=== PATIENT | female | born 1960 | race Caucasian/White ===

== ENCOUNTER → 2018-01-20 15:33 | Outpatient (CLI) | payer OTHER, MEDICARE, MEDICAID, SELFPAY ==
[2018-01-20 16:18] LABS: BUN Creatinine Ratio 21.1 (6-22); Blood Urea Nitrogen 19 mg/dL (7-17); Calcium 9.1 mg/dL (8.4-10.2); Carbon Dioxide 29 mmol/L (22-32); Chloride 101 mmol/L (98-107); Estimated Glomerular Filt Rate > 60.0 mL/min (>60); Glucose 91 mg/dL (70-100); HEMOLYSIS 27 (0-50); Magnesium 2.2 mg/dL (1.6-2.3); Potassium 3.7 mmol/L (3.4-5.1); Sodium 140 mmol/L (137-145)
[2018-01-20 17:00] LABS: TSH w/ Reflex to FT4 0.86 uIU/mL (0.47-4.68)
== END ==
PROVIDERS: Family Provider Internal Medicine; PCP Internal Medicine; Visit Provider Internal Medicine
DX: I10 Essential (primary) hypertension (principal); E03.9 Hypothyroidism, unspecified
CPT/HCPCS: 36415; 80048; 83735; 84443

== ENCOUNTER → 2018-03-31 14:38 | Outpatient (CLI) | payer OTHER, MEDICARE, MEDICAID, SELFPAY ==
--- NOTE | 2018-03-31 14:40 | DI.CT.S_ITS ---
PROCEDURE: CT HEAD/BRAIN WO CON INDICATIONS: Headaches TECHNIQUE: Noncontrast 4.5 mm thick angled axial sections acquired from the foramen magnum to the vertex, with coronal and sagittal reformats. For radiation dose reduction, the following was used: automated exposure control, adjustment of mA and/or kV according to patient size. COMPARISON: None. FINDINGS: Image quality: Excellent. CSF spaces: Basal cisterns are patent. No extra-axial fluid collections. Ventricles are normal in size and shape. Brain: No midline shift. No intracranial masses or hemorrhage. Hallman-white matter interface is normal. Skull and face: Calvarium and visualized facial bones are intact, without suspicious lesions. Sinuses: Visualized sinuses and mastoids are clear. IMPRESSION: 1. No acute intracranial disease process. 2. No intracranial hemorrhage. 3. No abnormal intracranial mass. Dictated by: Elzia Bradshaw MD, PhD on 03/31/2018 at 15:20 Approved by: Eliza Bradshaw MD, PhD on 03/31/2018 at 15:23
== END ==
PROVIDERS: Family Provider Internal Medicine; PCP Internal Medicine; Visit Provider Internal Medicine
DX: R51 Headache (principal)
CPT/HCPCS: 70450

== ENCOUNTER 2018-04-11 10:24 | Day surgery (SDC) | payer OTHER, MEDICARE, MEDICAID, SELFPAY ==
[2018-04-11] VITALS (10 sets, daily range): BP systolic 81–114; BP diastolic 53–69; PULSE 58–81; RESP 11–20; TEMP 36–36.3; O2SAT 92–100; BMI 40.4
--- NOTE | 2018-04-11 | PATH_ITS ---
[facility] Accession Number: [id number] . 01 Material submitted: . PART A: CECAL POLYP PART B: RECTAL POLYPS X2 . 02 Diagnosis: A. Cecal Polyp: Colonic mucosa with prominent benign lymphoid aggregate. Negative for serrated lesion, dysplasia or malignancy. . B. Rectal Polyps: Hyperplastic polyp x2. V/04/12/2018 . 02 Electronically signed: . Tano Martinez MD, PhD, Pathologist NPI- [id number] . 01 Gross description: . Received two formalin-filled containers, both labeled with the patient's name: . A. In a container labeled cecal polyp, the specimen consists of four 0.1-0.3 cm portions of tissue, entirely submitted in cassette A. B. In a container labeled rectal polyp x2, are two less than 0.1 cm to 0.3 cm portions of tissue, entirely submitted in cassette B. ([id number]) /FRR . 02 Pathologist provided ICD-10: K63.5, K62.1 . 02 CPT . 436456, 164816 Performed at: 01 [facility] [address] [facility], [place], [place] [id number] MD Phillip Mckeon MD Phone: [phone] Performed at: 02 [facility] [address] [place], [place] [id number] MD Jasbir Urrutia MD Phone: [phone]
--- NOTE | 2018-04-11 08:20 | SUR.PREOP ---
Pt notified Dr. Vásquez is in emergency surgery and her procedure will be delayed. Pt expressed frustration regarding her change of procedure time, difficulty with her ride and not drinking anything. Pt reassured she would have the procedure as soon as the surgeon could get to her.
--- NOTE | 2018-04-11 12:02 | P.HP_ITS ---
History of Present Illness Date Patient Seen: 04/11/18 Time Patient Seen: 11:59 Chief complaint: COLONOSCOPY [id number] Narrative: 57-year-old female who presents for colorectal screening. It has been 5 years since her last colonoscopy, and she has a strong family history of colorectal neoplasia including her father who of colon cancer at age 55. On further history today she has no gastrointestinal symptoms other than some transient constipation in the last several weeks. Denies nausea, vomiting, loss of appetite, unexplained weight loss, abdominal pain, diarrhea, melena, hematochezia, or bright red blood per rectum. Patient History Medical History Post traumatic stress disorder (PTSD) (Chronic) Major depressive disorder, recurrent severe without psychotic features (Acute) Attention-deficit hyperactivity disorder, predominantly inattentive type ( Chronic) Mixed hyperlipidemia (Chronic 06/16/11) Generalized anxiety disorder (Chronic 06/16/11) Obstructive sleep apnea syndrome (Chronic 06/16/11) Glaucoma (Chronic 2009) Dorsalgia (Chronic 06/16/11) Acquired hypothyroidism (Chronic) Gastroesophageal reflux disease without esophagitis (Chronic 04/03/16) Essential hypertension (Chronic 08/07/16) Morbid obesity with body mass index (BMI) of 40.0 to 49.9 (Chronic 08/07/16) Hayfever (Chronic) Hearing loss (Chronic 1961) Chronic back pain (Chronic 2004) Foot pain (Chronic 2012) Lumbar spine pain (Chronic 2004) Fatty tumor (Inactive) Anemia (Resolved 1986) Arthritis (Resolved 2004) Chicken pox (Resolved 1960) History of recurrent ear infection (Resolved 1960) Measles (Resolved 1961) Painful menstrual periods (Resolved 1969) Plantar warts (Resolved 2002) Pneumothorax (Resolved) Shoulder pain (Resolved 2008) Suicide attempt (Resolved 2004) Surgical History History of back surgery (Resolved 2007) History of carpal tunnel repair (Resolved 2010) History of ear surgery (Resolved) History of thumb surgery (Resolved 2009) Status post delivery (Resolved 01/27/90) Status post tonsillectomy and adenoidectomy (Resolved) Family & Social History Family History: Reviewed 04/11/18 by Sean Vásquez MD Social History: household members none lives independently Yes caregiver/support person No Tobacco & Substance use: Smoking Status Never smoker alcohol intake current Meds Home Medications Medication Instructions Recorded Confirmed Type eszopiclone [Lunesta] 1.5 - 3 mg PO HS #60 tab 05/13/17 03/18/18 Rx estradiol [Yuvafem] 10 mcg VAGINAL QR SLEEP #90 tab 07/06/17 03/18/18 Rx bupropion HCl [Wellbutrin XL] 300 mg PO Q DAY #90 tab 07/09/17 03/18/18 Rx lisinopril 40 mg PO QDAY #90 tab 09/16/17 03/18/18 Rx esomeprazole magnesium 40 mg 40 mg PO QDAY #90 cap 01/20/18 03/18/18 Rx capsule,delayed release hydrochlorothiazide 25 mg tablet 25 mg PO QDAY #90 tab 01/20/18 03/18/18 Rx methylphenidate CD 10 mg biphasic 10 mg PO QAM #90 cap 02/15/18 03/18/18 Rx 30-70 capsule,extended release ramelteon 8 mg tablet 8 mg PO HS #30 tab 03/17/18 03/18/18 Rx verapamil ER 120 mg 24 hr 120 mg PO DAILY #30 cap 03/17/18 03/18/18 Rx capsule,extended release prazosin 1 mg capsule 2 mg PO HS #180 cap 03/18/18 Rx vitamin B complex tablet 1 tab PO DAILY 03/18/18 03/18/18 History Allergies Allergy/AdvReac Type Severity Reaction Status Date / Time doxycycline Allergy Mild N/V Verified 03/18/18 15:58 penicillin G Allergy Mild RASH Verified 03/18/18 15:58 Sulfa (Sulfonamide Allergy Mild ACT LIKE Verified 03/18/18 15:58 Antibiotics) I'M DRUNK/SICK gabapentin [GABAPENTIN] Allergy Unknown FAINTING, Verified 03/18/18 15:58 DIZZINESS. Review of Systems Review of Systems All systems reviewed & are unremarkable except as noted in HPI and below Exam Vital Signs (past 8 hours): - 04/11/18 10:50 Temperature 97.2 F L Pulse Rate 81 Respiratory Rate 12 Blood Pressure 94/64 Pulse Oximetry 97 Oxygen Delivery Method Room Air Narrative Exam Narrative: Well-nourished well-developed obese female sitting comfortably in the bed in no acute distress. Alert oriented x3. Family is at the bedside for my entire visit. Sclera nonicteric Chest clear to auscultation bilaterally with regular rate rhythm. No murmurs. Abdomen soft, nondistended, nontender, no masses. Extremities show no clubbing or cyanosis Objective Labs Labs: No recent laboratory or radiographic studies for review Assessment & Plan Plan: Assessment/Plan Narrative: 57-year-old female with significant family history of colorectal neoplasia. He requires colorectal screening since it has been 5 years from her last examination. Colonoscopy is recommended. Risks, benefits, alternatives were explained as were the technical details of the procedure itself. Risks including but not limited to sedation, aspiration, bleeding, pain, missed lesion , incomplete examination, need for further radiographic studies, colonic perforation, need for major abdominal surgery, and all attendant risks of major surgery were explained at length. All questions were answered to her satisfaction, and she voiced understanding. Consent was placed on the chart. We will proceed as above.
--- NOTE | 2018-04-11 12:02 | PM.PREOP ---
Pre-operative Note Interval Note Pre-op Check: Yes History & Physical Reviewed by Physician, Yes Exam Performed and Yes History & Physical exam performed today by Physician Changes: No H&P completed within 30 days and has changed as indicated here:: Patient seen and examined today. History physical examination documented and placed on the chart today. Proceed with colonoscopy as planned. ASA Class (for procedural sedation): II
[2018-04-11] MEDS: MIDAZOLAM 5 MG/5 ML VIAL IV (12:17)
[2018-04-11] MEDS: fentaNYL 250 MCG/5 ML INJ IV (12:18)
--- NOTE | 2018-04-11 12:29 | PM.OP.ENDO ---
Operative Date/Time/Diagnoses Date of procedure: 04/11/18 Time of procedure: 12:29 Pre-op diagnosis: Family history of colon cancer Post-op diagnosis: other (Colon polyps) Procedure & Clinicians Study performed: 1. Sedation per surgeon 2. Colonoscopy with cold forceps polypectomies Same procedure as scheduled: Yes Indications: 57-year-old female with family history of colon cancer in her father who at the age of 55 due to his disease. Patient presents for colorectal screening. It has been 5 years since her last colonoscopy. Repeat colonoscopy is recommended currently. Surgeon: Sean Vásquez Procedure Notes SCOAP/Timeout: Yes Procedure in detail: After obtaining informed consent, the patient was brought to the GI suite and placed in the left lateral decubitus position on the examination table. After placement of appropriate monitors, the patient was given incremental doses of Versed and Fentanyl until an appropriate level of sedation was achieved. A time out was held per SCOAP protocol. A digital rectal examination was performed and did not reveal any masses or obstructing lesions. The colonoscope was gently passed into the patient's anus and the entire colon navigated to the level of the cecum with minimal difficulty. Terminal ileum was intubated and noted to be grossly normal. Once in the cecum, the scope was withdrawn being sure to go before and beyond all mucosal folds and prominences and get an excellent examination. The findings are noted above. At the level of the rectal vault, the scope was retroflexed and the internal anal canal was examined. The scope was straightened and air aspirated from the colon. The instrument was removed from the patient's body and the procedure was concluded. The patient was allowed to awaken from sedation without difficulty and taken to the post-anesthesia care unit in good condition. Scope withdrawal time: 9:54 min Sedation minutes: 20 Findings: polyp and other findings (Otherwise normal colon, rectum, and terminal ileum) Specimen(s): other (1. Cecal polyp 2. Rectal polyps x2) Complications: none Recommendations: Colonscopy in 5 years, High fiber diet and Will call with biopsy results Plan for aftercare: 1. Discharged home Follow up: as needed Disposition: same day surgery
[2018-04-11] MEDS: ONDANSETRON 4 MG/2 ML INJ IV (12:41)
[2018-04-11] MEDS: ONDANSETRON 4 MG ODT PO (13:50)
--- NOTE | 2018-04-11 13:58 | SUR.PHASEII ---
pt c/o nausea directly after iv removed. verbal order received from Dr. Vásquez for 4mg ondansetron. pt also given mayank karolina and cool wash cloth placed on forehead. bed in lowest position and call light given to pt. pt friend at bedside. pt requesting to rest at this time.
== END 2018-04-11 14:28 | disposition home or self-care (01) ==
PROVIDERS: Surgery; Family Provider Internal Medicine; PCP Internal Medicine; Visit Provider Surgery
PROC: 0DJD8ZZ Inspection of Lower Intestinal Tract, Via Natural or Artificial Opening Endoscopic (ICD-10-PCS; CPT 45378; principal; 2018-04-11 10:45)
DX: Z12.11 Encounter for screening for malignant neoplasm of colon (principal); Z80.0 Family history of malignant neoplasm of digestive organs; K63.5 Polyp of colon; K62.1 Rectal polyp
CPT/HCPCS: 45380; 88305; 99152; J2250; J2405; J3010

== ENCOUNTER → 2018-11-28 09:48 | Outpatient (CLI) | payer MEDICARE, MEDICAID, SELFPAY ==
[2018-11-28 11:24] LABS: Alanine Aminotransferase 21 IU/L (9-52); Albumin 4.1 g/dL (3.5-5.0); Albumin Globulin Ratio 1.3 (1.0-2.8); Alkaline Phosphatase 70 U/L (38-126); Aspartate Aminotransferase 18 IU/L (14-36); BUN Creatinine Ratio 14.4 (6-22); Bilirubin Total 0.5 mg/dL (0.2-1.3); Blood Urea Nitrogen 13 mg/dL (7-17); Calcium 9.4 mg/dL (8.4-10.2); Carbon Dioxide 29 mmol/L (22-32); Chloride 99 mmol/L (98-107); Cholesterol 158 mg/dL (140-199); Estimated Glomerular Filt Rate > 60.0 mL/min (>60); Globulin 3.2 g/dL (1.7-4.1); Glucose 103 mg/dL (70-100); HDL Cholesterol 44 mg/dL (40-60); HEMOLYSIS < 15 (0-50); LDL Cholesterol Calculated 95 mg/dL (<100); Potassium 3.8 mmol/L (3.4-5.1); Sodium 138 mmol/L (137-145); Total Protein 7.3 g/dL (6.3-8.2); Triglycerides 94 mg/dL (35-150)
[2018-11-28 11:41] LABS: Free T4, Direct Thyroxine 1.01 ng/dL (0.78-2.19)
[2018-11-28 11:55] LABS: Thyroid Stimulating Hormone 1.18 uIU/mL (0.47-4.68)
== END ==
PROVIDERS: Family Provider Internal Medicine; PCP Internal Medicine; Visit Provider Internal Medicine
DX: E03.9 Hypothyroidism, unspecified (principal); E78.2 Mixed hyperlipidemia; K21.9 Gastro-esophageal reflux disease without esophagitis
CPT/HCPCS: 36415; 80053; 80061; 84439; 84443

== ENCOUNTER → 2018-12-01 16:23 | Outpatient (CLI) | payer MEDICARE, MEDICAID, SELFPAY ==
[2018-12-01 17:35] LABS: Appearance Urine UA CLEAR; Bilirubin Urine UA NEGATIVE (NEGATIVE); Color Urine UA YELLOW; Glucose Urine UA NEGATIVE (Negative); Ketones Urine UA NEGATIVE (NEGATIVE); Leukocyte Esterase Urine UA TRACE (NEGATIVE); Nitrite Urine UA NEGATIVE (Negative); Occult Blood Urine UA TRACE-INTACT (Negative); Protein Urine UA NEGATIVE (Negative); Urobilinogen Urine UA 0.2 E.U./dL (0.2); pH Urine UA 5.5 (4.5-8.0)
[2018-12-01 17:53] LABS: RBC Urine 1-5/HPF (0-5/HPF); WBC Urine 1-5/HPF (0-5/HPF)
[2018-12-01 17:54] LABS: Amorphous Sediment Urine 1+; Bacteria Urine Few (2-10); Culture Indicated Urine Specimen Cultured; Squamous Epithelial Cell Urine 0-1 /HPF (0-5/HPF)
== END ==
PROVIDERS: Family Provider Internal Medicine; PCP Internal Medicine; Visit Provider Internal Medicine
DX: R30.0 Dysuria (principal)
CPT/HCPCS: 81003; 81015; 87086

== ENCOUNTER → 2019-07-29 10:03 | Outpatient (CLI) | payer MEDICARE, MEDICAID, SELFPAY ==
[2019-07-29 10:49] LABS: Alanine Aminotransferase 15 IU/L (<35); Albumin 4.5 g/dL (3.5-5.0); Albumin Globulin Ratio 1.5 (1.0-2.8); Alkaline Phosphatase 101 U/L (38-126); Aspartate Aminotransferase 20 IU/L (14-36); Bilirubin Total 0.5 mg/dL (0.2-1.3); Blood Urea Nitrogen 17 mg/dL (7-17); Calcium 9.6 mg/dL (8.4-10.2); Carbon Dioxide 31 mmol/L (22-32); Chloride 99 mmol/L (98-107); Cholesterol 177 mg/dL (140-199); Estimated Glomerular Filt Rate 56.7 mL/min (>60); Globulin 3.1 g/dL (1.7-4.1); Glucose 122 mg/dL (70-100); HDL Cholesterol 44 mg/dL (40-60); HEMOLYSIS < 15 (0-50); LDL Cholesterol Calculated 110 mg/dL (<100); Potassium 4.1 mmol/L (3.4-5.1); Sodium 140 mmol/L (137-145); Total Protein 7.6 g/dL (6.3-8.2); Triglycerides 113 mg/dL (35-150)
[2019-07-29 11:04] LABS: Free T4, Direct Thyroxine 1.17 ng/dL (0.78-2.19)
[2019-07-29 11:18] LABS: Thyroid Stimulating Hormone 1.09 uIU/mL (0.47-4.68)
== END ==
PROVIDERS: Family Provider Internal Medicine; PCP Internal Medicine; Visit Provider Internal Medicine
DX: Z13.1 Encounter for screening for diabetes mellitus (principal); E03.9 Hypothyroidism, unspecified; E78.2 Mixed hyperlipidemia; I10 Essential (primary) hypertension; Z13.6 Encounter for screening for cardiovascular disorders
CPT/HCPCS: 36415; 80053; 80061; 84439; 84443

== ENCOUNTER → 2020-04-20 08:11 | Outpatient (CLI) | payer MEDICARE, MEDICAID, SELFPAY ==
[2020-04-20 09:20] LABS: Alanine Aminotransferase 12 IU/L (<35); Albumin 4.1 g/dL (3.5-5.0); Albumin Globulin Ratio 1.3 (1.0-2.8); Alkaline Phosphatase 84 U/L (38-126); Aspartate Aminotransferase 19 IU/L (14-36); BUN Creatinine Ratio 18.2 (6-22); Bilirubin Total 0.4 mg/dL (0.2-1.3); Blood Urea Nitrogen 16 mg/dL (7-17); Calcium 8.9 mg/dL (8.4-10.2); Carbon Dioxide 35 mmol/L (22-32); Chloride 98 mmol/L (98-107); Estimated Glomerular Filt Rate > 60.0 mL/min (>60); Globulin 3.2 g/dL (1.7-4.1); Glucose 112 mg/dL (80-110); HEMOLYSIS < 15 (0-50); Potassium 3.1 mmol/L (3.4-5.1); Sodium 138 mmol/L (137-145); Total Protein 7.3 g/dL (6.3-8.2)
[2020-04-20 13:26] LABS: TSH w/ Reflex to FT4 0.84 uIU/mL (0.47-4.68)
== END ==
PROVIDERS: Family Provider Internal Medicine; PCP Internal Medicine; Referring Provider Internal Medicine; Visit Provider Internal Medicine
DX: E66.01 Morbid (severe) obesity due to excess calories (principal); F41.1 Generalized anxiety disorder; I10 Essential (primary) hypertension
CPT/HCPCS: 36415; 80053; 84443

== ENCOUNTER → 2020-04-25 11:50 | Outpatient (CLI) | payer MEDICARE, MEDICAID, SELFPAY ==
--- NOTE | 2020-04-25 11:55 | DI.US.S_ITS ---
PROCEDURE: US CAROTID DOPPLER BI INDICATIONS: syncope TECHNIQUE: Color and pulse Doppler interrogation was performed of both carotid systems, with image documentation and velocity measurements. COMPARISON: None. FINDINGS: Stenosis calculations are based on SRU (Society of Radiologists in Ultrasound) criteria. Right side: Brachial blood pressure: 146/80 mm Hg. Common carotid artery peak systolic velocity: 74 cm/sec. Internal carotid artery peak systolic velocity: 98 cm/sec. Internal carotid artery end diastolic velocity: 40 cm/sec. External carotid artery peak systolic velocity: 75 cm/sec. ICA/CCA peak systolic ratio: 1.3 . Hallman scale imaging description: Mild scattered plaque Percent internal carotid artery stenosis: Less than 50% . Vertebral artery: Flow direction is antegrade. Left side: Brachial blood pressure: 132/90 mm Hg. Common carotid artery peak systolic velocity: 90 cm/sec. Internal carotid artery peak systolic velocity: 85 cm/sec. Internal carotid artery end diastolic velocity: 35 cm/sec. External carotid artery peak systolic velocity: 66 cm/sec. ICA/CCA peak systolic ratio: 0.9 . Hallman scale imaging description: Mild scattered plaque. Percent internal carotid artery stenosis: Less than 50% . Vertebral artery: Flow direction is antegrade. IMPRESSION: Less than 50% bilateral internal carotid artery stenosis. Dictated by: Shamar Mcrae [facility] Interpreted: Zi Cross MD on 04/25/2020 at 15:37 Approved by: Zi Cross M.D. on 04/26/2020 at 9:41
== END ==
PROVIDERS: Family Provider Internal Medicine; PCP Internal Medicine; Referring Provider Internal Medicine; Visit Provider Internal Medicine
DX: I65.23 Occlusion and stenosis of bilateral carotid arteries (principal); R55 Syncope and collapse
CPT/HCPCS: 93880

== ENCOUNTER → 2020-05-01 15:32 | Outpatient (CLI) | payer MEDICARE, MEDICAID, SELFPAY ==
--- NOTE | 2020-05-29 08:02 | PM.CARDMON.1 ---
Director Of Social Media Marketing Report Referral & Results Date Patient Seen: 05/01/20 Requesting provider: Andrés Luque Indication: Syncope Duration of monitoring (days): 14 Diary information: There were 12 patient triggered events and 9 patient diary entries. All of these events were associated with sinus rhythm only Data: Minimum heart rate was 53 beats per minute at 03:22 on 05/07/2020 Maximum sinus heart rate was 156 beats per minute at 12:30 on 05/02/2020 Maximum overall heart rate was 184 beats per minute at 12:30 on 05/14/2020 during a 5 beat run of SVT Less than 1% of identified beats or either ventricular supraventricular ectopic in origin Patient had 1 5 beat run of SVT as above. 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 Clinical correlation suggested
== END ==
PROVIDERS: Family Provider Internal Medicine; PCP Internal Medicine; Referring Provider Internal Medicine; Visit Provider Internal Medicine
DX: R55 Syncope and collapse (principal)
CPT/HCPCS: 0296T; 0298T

== ENCOUNTER → 2020-08-13 16:27 | Outpatient (CLI) | payer MEDICARE, MEDICAID, SELFPAY ==
--- NOTE | 2020-08-13 16:29 | DI.MG.S_ITS ---
BILATERAL DIGITAL SCREENING MAMMOGRAM 3D/2D WITH CAD: 08/13/2020 CLINICAL: Routine screening. Family history of breast cancer. Comparison is made to exams dated: 09/16/2017 mammogram, 08/01/2015 mammogram, and 07/06/2012 mammogram - [facility]. The tissue of both breasts is predominantly fatty. Current study was also evaluated with a Computer Aided Detection (CAD) system. No significant masses, calcifications, or other findings are seen in either breast. There has been no significant interval change. IMPRESSION: NEGATIVE There is no mammographic evidence of malignancy. A 1 year screening mammogram is recommended. This exam was interpreted at Station ID: [id number]. NOTE: For mammograms, a report in lay terms will be sent to the patient. Approximately 15% of breast malignancies will not be visualized mammographically. In the management of a palpable breast mass, a negative mammogram must not discourage biopsy of a clinically suspicious lesion. Electronically Signed By: Jacek Perez acr/adamsrad:08/13/2020 17:05:34 letter sent: Normal Exam ACR BI-RADS Category 1: Negative 3341F
== END ==
PROVIDERS: Family Provider Internal Medicine; PCP Internal Medicine; Referring Provider Internal Medicine; Visit Provider Internal Medicine
DX: Z12.31 Encounter for screening mammogram for malignant neoplasm of breast (principal); Z80.3 Family history of malignant neoplasm of breast
CPT/HCPCS: 77063; 77067

== ENCOUNTER → 2020-11-01 11:21 | Outpatient (CLI) | payer MEDICARE, MEDICAID, SELFPAY ==
--- NOTE | 2020-11-01 11:36 | DI.RAD.S_ITS ---
PROCEDURE: XR CHEST 2V INDICATIONS: cough TECHNIQUE: 2 views of the chest were acquired. COMPARISON: [facility], CHEST 2 VIEW, 03/25/2011, 14:37. [facility], CHEST 2 VIEW, 04/03/2009, 14:44. FINDINGS: Surgical changes and devices: None. Lungs and pleura: Lungs are abnormal with a medial segment right middle lobe pneumonia and possible a small degree of lateral segmental right middle lobe pneumonia is superimposed. No pleural effusions or pneumothorax. Mediastinum: Mediastinal contours are normal. Heart size is normal. Bones and chest wall: No suspicious bony abnormalities. Soft tissues appear unremarkable. IMPRESSION: Mild pneumonia right middle lobe, involving the medial segment on frontal view and possibly also to a mild degree the lateral segment. Dictated by: Zi Cross M.D. on 11/01/2020 at 15:32 Approved by: Zi Cross M.D. on 11/01/2020 at 15:33
[2020-11-01 12:02] LABS: COVID19 -Nasal RAPID Negative (Negative)
== END ==
PROVIDERS: Family Provider Internal Medicine; PCP Internal Medicine; Referring Provider Internal Medicine; Visit Provider Internal Medicine
DX: Z20.822 Contact with and (suspected) exposure to COVID-19 (principal); R05 Cough
CPT/HCPCS: 71046; 87635

== ENCOUNTER → 2022-03-16 14:18 | Outpatient (CLI) | payer MEDICARE, MEDICAID, SELFPAY ==
[2022-03-16 15:11] LABS: BUN Creatinine Ratio 16.1 (6-22); Blood Urea Nitrogen 14 mg/dL (7-17); Calcium 9.1 mg/dL (8.4-10.2); Carbon Dioxide 30 mmol/L (22-32); Chloride 101 mmol/L (98-107); Cholesterol 164 mg/dL (140-199); Estimated Glomerular Filt Rate > 60 mL/min (>60); Glucose 103 mg/dL (80-110); HDL Cholesterol 44 mg/dL (40-60); HEMOLYSIS < 15 (0-50); LDL Cholesterol Calculated 98 mg/dL (<100); Potassium 4.2 mmol/L (3.4-5.1); Sodium 137 mmol/L (137-145); Triglycerides 108 mg/dL (35-150)
== END ==
PROVIDERS: Family Provider Internal Medicine; PCP Internal Medicine; Referring Provider Internal Medicine; Visit Provider Internal Medicine
DX: R73.9 Hyperglycemia, unspecified (principal); I10 Essential (primary) hypertension; Z13.6 Encounter for screening for cardiovascular disorders
CPT/HCPCS: 80048; 80061; 83036

== ENCOUNTER → 2022-04-23 15:14 | Outpatient (CLI) | payer MEDICARE, MEDICAID, SELFPAY ==
--- NOTE | 2022-04-23 15:16 | DI.MG.S_ITS ---
BILATERAL DIGITAL SCREENING MAMMOGRAM 3D/2D WITH CAD: 04/23/2022 CLINICAL: Routine screening. Family history of breast cancer. Comparison is made to exams dated: 08/13/2020 mammogram, 09/16/2017 mammogram, and 08/01/2015 mammogram - [facility]. Both breasts are almost entirely fatty (category a/<25% glandular tissue). Current study was also evaluated with a Computer Aided Detection (CAD) system. No significant masses, calcifications, or other findings are seen in either breast. There has been no significant interval change. IMPRESSION: NEGATIVE There is no mammographic evidence of malignancy. A 1 year screening mammogram is recommended. Based on the Tyrer Cuzick model (a risk assessment model) the patient's lifetime risk is 5.6% and her 10 year risk is 2.4%. According to the ACR, ACS, and NCCN guidelines, an annual breast MRI exam along with mammogram is recommended if the patient's lifetime risk is 20% or greater. This exam was interpreted at Station ID: [id number]. NOTE: For mammograms, a report in lay terms will be sent to the patient. Approximately 15% of breast malignancies will not be visualized mammographically. In the management of a palpable breast mass, a negative mammogram must not discourage biopsy of a clinically suspicious lesion. Electronically Signed By: Rafael mendez/josiah:04/24/2022 08:12:35 letter sent: Normal Exam ACR BI-RADS Category 1: Negative 3341F
== END ==
PROVIDERS: Family Provider Internal Medicine; PCP Internal Medicine; Referring Provider Internal Medicine; Visit Provider Internal Medicine
DX: Z12.31 Encounter for screening mammogram for malignant neoplasm of breast (principal); Z80.3 Family history of malignant neoplasm of breast
CPT/HCPCS: 77063; 77067

== ENCOUNTER → 2022-06-30 14:57 | Outpatient (CLI) | payer MEDICARE, MEDICAID, SELFPAY ==
--- NOTE | 2022-06-30 | DI.MRI.S_ITS ---
PROCEDURE: MR SHOULDER RT WO CON INDICATIONS: impingement syndrome of right shoulder TECHNIQUE: Noncontrast oblique coronal T2 fast spin echo with fat saturation, oblique sagittal T1 spin echo and T2 fast spin echo with fat saturation, axial T1 spin echo and T2 fast spin echo with fat saturation through the shoulder. COMPARISON: [facility] [place], CR, XR SHOULDER 2+ VIEWS RIGHT, 03/16/2022, 15:21. FINDINGS: Image quality: Excellent. Rotator cuff: Moderate grade articular and bursal surface partial thickness tear involving distal supraspinatus at its insertion on the humeral head is seen extending to musculotendinous junction. Distal infraspinatus tendinosis is seen. Distal subscapularis tendinosis is also noted. No full-thickness rotator cuff tendon rupture. Sagittal images demonstrate mild supraspinatus muscle atrophy. Bones and bursae: No bone marrow contusions or fractures. Mild to moderate acromioclavicular joint osteoarthritic changes are seen with joint space narrowing, subchondral sclerosis and downward osteophyte formation depressing the musculotendinous junction of supraspinatus. Moderate glenohumeral joint osteoarthritic changes also seen with joint space narrowing, subchondral sclerosis and prominent inferior marginal osteophyte formation. Small amount of joint effusion and subacromial subdeltoid bursal fluid is seen. Capsule and soft tissues: Signal abnormality and contour irregularity involving superior anterior labrum at 12 to 2 o'clock position is seen suggestive of superior anterior labral tear. There is suggestion of a tiny 5 millimeter perilabral cyst adjacent to superior anterior labrum. The long head of the biceps tendon appears thickened intra-articularly. The rotator interval appears normal, without fibrosis. The coracohumeral ligament is normal in thickness. IMPRESSION: 1. Moderate grade articular and bursal surface partial thickness tear involving distal supraspinatus extending to musculotendinous junction. Distal infraspinatus and subscapularis tendinosis. Mild supraspinatus muscle atrophy. 2. Mild to moderate acromioclavicular joint osteoarthritis and moderate glenohumeral joint osteoarthritis. No fracture or dislocation. Small joint effusion and subacromial subdeltoid bursal fluid. 3. Suggestion of superior anterior labral tear at 12 to 2 o'clock position. 4. Proximal intra-articular portion of long head of biceps tendinosis. Dictated by: Mook Rice M.D. on 06/30/2022 at 17:13 Approved by: Mook Rice M.D. on 06/30/2022 at 17:18
== END ==
PROVIDERS: Family Provider Internal Medicine; PCP Internal Medicine; Referring Provider Orthopaedic Surgery; Visit Provider Orthopaedic Surgery
DX: M75.41 Impingement syndrome of right shoulder (principal); M75.111 Incomplete rotator cuff tear or rupture of right shoulder, not specified as traumatic; M19.011 Primary osteoarthritis, right shoulder; M62.511 Muscle wasting and atrophy, not elsewhere classified, right shoulder; M25.411 Effusion, right shoulder
CPT/HCPCS: 73221

== ENCOUNTER → 2022-11-13 12:12 | Outpatient (CLI) | payer MEDICARE, SELFPAY ==
[2022-11-13 15:05] LABS: Alanine Aminotransferase 16 IU/L (<35); Albumin 3.9 g/dL (3.5-5.0); Albumin Globulin Ratio 1.3 (1.0-2.8); Alkaline Phosphatase 72 U/L (38-126); Aspartate Aminotransferase 20 IU/L (14-36); BUN Creatinine Ratio 19.8 (6-22); Bilirubin Total 0.3 mg/dL (0.2-1.3); Blood Urea Nitrogen 16 mg/dL (7-17); Calcium 9.1 mg/dL (8.4-10.2); Carbon Dioxide 31 mmol/L (22-32); Chloride 100 mmol/L (98-107); Estimated Glomerular Filt Rate > 60 mL/min (>60); Glucose 97 mg/dL (80-110); HEMOLYSIS < 15 (0-50); Potassium 3.9 mmol/L (3.4-5.1); Sodium 137 mmol/L (137-145); Total Protein 6.9 g/dL (6.3-8.2)
[2022-11-13 15:23] LABS: TSH w/ Reflex to FT4 0.96 uIU/mL (0.47-4.68)
== END ==
PROVIDERS: Family Provider Internal Medicine; PCP Internal Medicine; Referring Provider Internal Medicine; Visit Provider Internal Medicine
DX: I10 Essential (primary) hypertension (principal); E66.01 Morbid (severe) obesity due to excess calories; E03.9 Hypothyroidism, unspecified
CPT/HCPCS: 36415; 80053; 84443

== ENCOUNTER → 2023-03-16 16:36 | Outpatient (CLI) | payer MEDICARE, MEDICAID, SELFPAY ==
[2023-03-16 18:19] LABS: Alanine Aminotransferase 15 IU/L (<35); Albumin 3.9 g/dL (3.5-5.0); Albumin Globulin Ratio 1.4 (1.0-2.8); Alkaline Phosphatase 65 U/L (38-126); Aspartate Aminotransferase 22 IU/L (14-36); Bilirubin Total 0.2 mg/dL (0.2-1.3); Blood Urea Nitrogen 21 mg/dL (7-17); C-Reactive Protein Quant < 0.5 mg/dL (<1.0); Carbon Dioxide 27 mmol/L (22-32); Chloride 101 mmol/L (98-107); Creatine Kinase 454 U/L (30-135); Estimated Glomerular Filt Rate > 60 mL/min (>60); Globulin 2.7 g/dL (1.7-4.1); Glucose 94 mg/dL (80-110); HEMOLYSIS < 15 (0-50); Magnesium 1.9 mg/dL (1.6-2.3); Potassium 3.8 mmol/L (3.4-5.1); Sodium 136 mmol/L (137-145); Total Protein 6.6 g/dL (6.3-8.2)
[2023-03-16 18:46] LABS: TSH w/ Reflex to FT4 1.01 uIU/mL (0.47-4.68)
[2023-03-16 19:34] LABS: Erythrocyte Sedimentation Rate 12 MM/HR (0-20)
== END ==
PROVIDERS: Family Provider Internal Medicine; PCP Internal Medicine; Referring Provider Internal Medicine; Visit Provider Internal Medicine
DX: I10 Essential (primary) hypertension (principal); M79.10 Myalgia, unspecified site; R25.2 Cramp and spasm
CPT/HCPCS: 80053; 82550; 83735; 84443; 85651; 86140

== ENCOUNTER → 2023-04-19 09:50 | Outpatient (CLI) | payer MEDICARE, MEDICAID, SELFPAY ==
--- NOTE | 2023-04-19 09:54 | DI.RAD.S_ITS ---
PROCEDURE: FL BARIUM SWALLOW W SPEECH INDICATIONS: Dysphagia, unspecified COMPARISON: None. TECHNIQUE: Examination was conducted in conjunction with speech pathology per standard protocol. In the lateral projection, filming was performed of the patient swallowing. AP projection filming may also be performed with patient swallowing. COMPARISON: FINDINGS: Function: The oral preparatory phase appears normal, with proper containment. The subsequent oral propulsive phase, pharyngeal phase, and esophageal phase of swallowing also appear normal with all proffered substances. No laryngotracheal penetration or aspiration. No pathologic vallecular pooling. Morphology: No cricopharyngeal bar is identified. No cervical esophageal webs. No Zenker's diverticulum. No strictures. IMPRESSION: No evidence of aspiration or penetration. Please see speech pathology report for complete findings. Dictated by: Jacek Perez M.D. on 04/19/2023 at 11:49 Approved by: Jacek Perez M.D. on 04/19/2023 at 11:49
--- NOTE | 2023-04-19 12:45 | ST.SWALLOW ---
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 Luque Reason for Referral dysphagia Setting Setting Outpatient Care Patient Information Identification Type Name,Date of Patient History Pt was seen for a Modified Barium Swallow Study (MBSS) at the referral of Dr. Luque. According to the pt and records reviewed, the pt c/o difficulty swallowing solids and liquids. Pt reported solids/liquids feeling stuck in her throat (points to sternal notch) and pressure/ pain when swallowing (points to sternal area). Pt also reported that pills and foods like rice, breads and steaks are the hardest to swallow. Pt noted that she has a PMH of GERD for which she takes Omneprozol at night. She also stated she thought she had a hiatal hernia, but was unsure of its diagnosis date. Pt stated that she had a friend who from esophageal cancer who also had GERD and was concerned. She expressed her concern and current s/sx to Dr. Luque, who ordered MBSS. Subjective Observations Pt was seated in the fluoroscopy chair with directions and procedures described for her. She indicated that she understood and agreed to proceed. Patient Positioning Position View Lat-A/P Imaging Lateral View Textures Administered Trials Presented Thin Liquid via Spoon (IDDSI 0 ),Thin Liquid via Cup (IDDSI 0 ),Extremely Thick Liquid via Spoon (IDDSI 4),Regular (IDDSI 7) Barium Tablet Yes The IDDSI Framework Protocol: IDDSI.1 Oral Impairment Source: The Modified Barium Swallow Impairment Profile (MBSImP??) Lip Closure No labial escape Tongue Control During Bolus Hold Cohesive bolus between tongue to palatal seal Bolus Preparation/Mastication Timely & efficient chewing & mashing Bolus Transport/Lingual Motion Brisk tongue motion Oral Residue Trace residue lining oral structures Location Tongue Initiation of Pharyngeal Swallow Bolus head at posterior angle of ramus (first hyoid excursion) Additional Oral Impairment Observations OME and DKS were observed to be WNL. Natural dentition was noted in good hygiene. ORAL PHASE: Good bolus hold, control and AP transition observed. Mastication was normal with a rotary chew pattern and good bolus formation. Pharyngeal Impairment Source: The Modified Barium Swallow Impairment Profile (MBSImP??) Soft Palate Elevation No bolus between soft palate & pharyngeal wall Laryngeal Elevation Part.sup.move.thyroid cart/ part.approx.arytenoids to epiglot.petiole Anterior Hyoid Excursion Partial anterior movement Epiglottic Movement Partial inversion Laryngeal Vestibular Closure Complete; no air/contrast in laryngeal vestibule Pharyngeal Stripping Wave Present - complete Pharyngoesophageal Segment Opening Partial distention/partial duration; partial obstruction of flow Tongue Base Retraction Narrow column of contrast/air betwn tongue base & post. pharyngeal wall Pharyngeal Residue Trace residue within/on pharyngeal structures Location Diffuse (>3 areas) Additional Pharyngeal Impairment Mild base of tongue weakness Observations was noted to negatively impact the hyolaryngeal elevation and epiglottic inversion. The pt's epiglottis was observed to be curled and sitting against the base of tongue at rest. For small sips/bolus size across all trials, the epiglottis did not invert. However for large boluses, individually and consecutively , the epiglottic inversion was noted to be partially to fully inverted. The laryngeal seal was good with no penetration nor aspiration of contrast noted. Residue was observed throughout the pharynx following trials. The PES duration and extension of opening appeared to be diminished from expected. At the level of the PES, a bulge of tissue on the posterior wall of the esophagus was observed to narrow the PES opening. Beginning with the consecutive swallows of thin barium through the semi-solid and solid trials, the pt c/o the sensation of the trials being stuck in her throat, despite a clear pharynx on the video. A/P View Textures Administered Trials Presented Thin Liquid via Spoon (IDDSI 0 ) The IDDSI Framework Protocol: IDDSI.1 A/P View Observations Pharyngeal Contraction Unilateral bulging Esophageal Clearance Upright Position Esophageal retention Esophageal Function WFL,Slowed Clearing Additional A-P Observations In the AP view, there was retention of the previous trials noted. Some sips of water cleared the contrast to the stomach. Thin liquid trial noted bolus flow to the left of the larynx with complete esophageal clearance. A barium tablet swallowed with water cleared the esophagus in a timely manner. Clinical Impressions Findings Pt presented with all swallow phases to be WFL. However there was diminished extension and duration of the PES opening. A bulge of tissue was noted at the PES on the posterior wall of the esophagus that appeared to contribute to the narrow opening. A GI referral is recommended for further assessment. Patient Appropriate for Therapy No Recommendations Diet Medication Recommendation Whole in Carrier Comments No change in pt's diet texture or liquid thickness; add moisture to solids Additional Dietary Needs Single Sips Aspiration Precautions Recommended Precautions Alternate Liquids/Solids,Small Bites/Sips Treatment Plan Recommended Referrals GI Consult Therapy Strategy Recommendations Small Bites and Sips,Alternate Liquids/Solids
== END ==
PROVIDERS: Family Provider Internal Medicine; PCP Internal Medicine; Referring Provider Otolaryngology; Visit Provider Otolaryngology
DX: R13.10 Dysphagia, unspecified (principal); K21.9 Gastro-esophageal reflux disease without esophagitis
CPT/HCPCS: 74230; 92611

== ENCOUNTER 2024-01-02 16:03 | Emergency (ER) | payer MEDICARE, MEDICAID, SELFPAY ==
[2024-01-02 16:38] VITALS: BP 148/80; PULSE 81; RESP 19; TEMP 36.4; O2SAT 99; BMI 40.0
--- NOTE | 2024-01-02 19:47 | ED_ITS ---
HPI - Back Pain/Injury General Chief Complaint: Back Pain/Injury Stated Complaint: Sciatica/L Leg Pain, Bruising Time Seen by Provider: 01/02/24 18:54 History of Present Illness HPI Narrative: Patient 63-year-old female history anxiety PTSD hyperlipidemia presenting today with ongoing back pain and numbness. She reports that she went on a trip December 21 through December 26 was started having increasing pain and numbness in her perineal area. She reports that when she is wiped she is numb. She is now having increasing pain down her left. She actually had outpatient MRI on December 27 which shows significant multilevel degenerative disc changes and some minor disc bulging with moderate to severe bilateral foraminal narrowing L3-L4 and L4- L5 with no significant central canal stenosis She has been on dexamethasone methocarbamol Canadian meloxicam and continues to have severe pain. She was worried that she might have shingles she noticed a bruise on her left buttock as well. She actually reports improvement in her right leg but the left leg is very painful she is frustrated she can not sleep. She is still able to tell when she has to urinate and have bowel movements. No fever. Related Data Home Medications Medication Instructions Recorded Confirmed ResMed AirSense 10 05/20/22 12/30/23 Previous Rx's Medication Instructions Recorded Disabled Parking #1 ea 11/28/21 diphenhydramine HCl 50 mg capsule 50 mg PO Q6H PRN itching #250 caps 11/13/22 docusate sodium 100 mg capsule 100 mg PO BID #180 caps 11/13/22 omeprazole 40 mg capsule,delayed 40 mg PO DAILY #90 caps 02/01/23 release bupropion HCl 300 mg 24 hr tablet, 300 mg PO Q DAY #90 tabs 06/23/23 extended release (Wellbutrin XL) ramelteon 8 mg tablet (Rozerem) 8 mg PO HS #90 tabs 06/23/23 trazodone 50 mg tablet 100 mg (2 x 50 mg) PO BEDTIME #180 06/23/23 tabs hydrochlorothiazide 25 mg tablet 25 mg PO DAILY #90 tabs 06/24/23 methylphenidate HCl 10 mg biphasic 10 mg PO QAM #90 caps 08/24/23 30-70 capsule,extended release potassium chloride 20 mEq 20 meq PO DAILY #90 tabs 11/12/23 tablet,extended release estradiol 0.01% (0.1 mg/gram) 1 appful vaginal DAILY #42.5 grams 11/24/23 vaginal cream (Estrace) semaglutide (weight loss) 0.25 0.25 mg (0.5 mL) SUBCUT QWEEK #2 mL 11/26/23 mg/0.5 mL subcutaneous pen injector (Wegovy) semaglutide (weight loss) 1 mg/0.5 1 mg (0.5 mL) SUBCUT Q7D #2 mL 11/26/23 mL subcutaneous pen injector (Wegovy) hydrocodone 10 mg-acetaminophen 1 - 2 tab PO Q4-6H PRN pain #30 12/30/23 325 mg tablet tabs gabapentin 300 mg capsule 300 mg PO BEDTIME #30 caps 01/02/24 hydrocodone 5 mg-acetaminophen 325 1 tab PO Q6H PRN pain #10 tabs 01/02/24 mg tablet methocarbamol 750 mg tablet 750 mg PO Q12H PRN muscle spasm 01/02/24 #14 tabs Allergies Allergy/AdvReac Type Severity Reaction Status Date / Time doxycycline Allergy Mild N/V Verified 12/30/23 09:18 penicillin G Allergy Mild RASH Verified 12/30/23 09:18 Sulfa (Sulfonamide Allergy Mild ACT LIKE Verified 12/30/23 09:18 Antibiotics) I'M DRUNK/SICK gabapentin [GABAPENTIN] Allergy Unknown FAINTING, Verified 12/30/23 09:18 DIZZINESS. eggplant AdvReac Mild stinging Uncoded 12/30/23 09:18 needle feeling on tongue Patient History Medical History (Updated 01/02/24 @ 20:37 by Aria Mc DO) Pelvic floor dysfunction in female Genitourinary syndrome of menopause Well woman exam with routine gynecological exam BMI 38.0-38.9,adult Fibromyalgia Tinnitus Vaginal atrophy Painful menstrual periods (1969) History of recurrent ear infection (1960) Glaucoma (2009) Fatty tumor Plantar warts (2002) Arthritis (2004) Shoulder pain (2008) Lumbar spine pain (2004) Foot pain (2012) Chronic back pain (2004) Suicide attempt (2004) Pneumothorax Hearing loss (1961) Anemia (1986) Chicken pox (1960) Measles (1961) Hayfever Morbid obesity with body mass index (BMI) of 40.0 to 49.9 (08/07/16) Essential hypertension (08/07/16) Gastroesophageal reflux disease without esophagitis (04/03/16) Dorsalgia (06/16/11) Obstructive sleep apnea syndrome (06/16/11) Generalized anxiety disorder (06/16/11) Mixed hyperlipidemia (06/16/11) Attention-deficit hyperactivity disorder, predominantly inattentive type Post traumatic stress disorder (PTSD) Surgical History History of ear surgery History of thumb surgery (2009) History of back surgery (2007) History of carpal tunnel repair (2010) Status post delivery (01/27/90) Status post tonsillectomy and adenoidectomy Family History Father Cancer Hypertension High cholesterol Grandfather Cancer Mental health problem Depression Leukemia Grandmother Mental health problem Alzheimer's dementia Grandfather Diabetes mellitus Hypertension High cholesterol Grandmother Heart disease Social History marital status: number of children: 2 household members: none lives independently: Yes caregiver/support person: No housing: apartment pets and animals: Yes education level: college occupational status: disabled 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: Muslim travel history: recent leisure activities: exercise, art and other Smoking Status: Never smoker Tobacco: How many years used: 0 quit status: quit date established second hand exposure: Yes alcohol intake: current substance use type: does not use Smoking Status: Never smoker Exam Initial Vital Signs Initial Vital Signs: Vital Signs Temperature 97.6 F 01/02/24 16:38 Pulse Rate 81 01/02/24 16:38 Respiratory Rate 19 01/02/24 16:38 Blood Pressure 148/80 H 01/02/24 16:38 Pulse Oximetry 99 01/02/24 16:38 Oxygen Delivery Method Room Air 01/02/24 16:38 GENERAL: Tearful 63-year-old female BMI 40 CARDIOVASCULAR: peripheral pulses in tact, cap refill <2 sec RESPIRATORY: No respiratory distress, speaks in full sentences without difficulty EXTREMITIES: Normal range of motion, no clubbing or edema. Neurovascularly intact BACK: Pain and left buttock area there is a very small contusion no vesicles or erythema appreciated. Sensation in lower extremities intact sensation in medial thighs intact. She is able to move both legs. NEUROLOGICAL: Cranial nerves II through XII grossly intact. Normal gait and speech. SKIN: Warm, dry, no petechiae, no rashes or lesions. Course Orders Ordered: ED Orders 01/02/24 20:41 EKG-12 Lead Stat Discontinued Medications Diazepam (Diazepam 5 Mg Tablet) 5 mg PO NOW ONE Stop: 01/02/24 20:42 Last Admin: 01/02/24 20:48 Dose: 5 mg Documented By: Gabapentin (Gabapentin 300 Mg Capsule) 300 mg PO NOW ONE Stop: 01/02/24 19:57 Last Admin: 01/02/24 20:20 Dose: 300 mg Documented By: Hydromorphone HCl (Hydromorphone 1 Mg Inj) 1 mg IM NOW ONE Stop: 01/02/24 19:57 Last Admin: 01/02/24 20:21 Dose: 1 mg Documented By: Vital Signs Vital signs: Vital Signs - 8 hr 01/02/24 21:44 Temperature 99.2 F Pulse Oximetry 98 Oxygen Delivery Method Room Air MDM - Back Pain/Injury ECG Data Attestation: I personally reviewed and interpreted this ECG as follows: Prior ECG tracings: available for review Interpretation: Normal sinus rhythm rate 73 MD interval 116 QRS 72 QTC 407 MDM Narrative Medical decision making narrative: Patient 63-year-old female with acute on chronic back pain. Recent MRI shows significant degenerative is disease in bilateral neural foraminal narrowing more notably at L3-L4. She is on all pain medication she has been taking it without significant relief. She has given a shot of Dilaudid here in the ED talked about gabapentin. Gabapentin was listed as an allergy however she says she has not allergic to in his willing to try it. After receiving gabapentin and Dilaudid she reports she is still having pain started having chest pain she was hyperventilating. EKGs does not show any sort of ischemia. She was given Valium and after that calm down and reports that longer having chest pain that her pain in her leg improved. I suspect that she was having anxiety no suspicion for acute coronary syndrome blood work was not done EKG within normal limits. Discharge Plan Departure Patient Disposition: Home Clinical Impression: Sciatica of left side associated with disorder of lumbar spine Instructions: DI for Back Pain With Sciatica Activity Restrictions/Additional Instructions: *You have been diagnosed with back pain with sciatica *What to do: At this time increase activity as tolerated. I do suggesting Dr. Dick and possibly referral to Orthopedics. *Continue to take medications as directed Methocarbamol 750 mg every 12 hours needed for muscle spasm Canadian 1 tablet every 6 hours if needed for severe pain Gabapentin 300 mg at night this can be titrated but please talk to your PCP *Follow up with your primary care provider in 2-3 days or call [phone] *Return to ER if you should have increasing leg weakness loss of urine or any new, worsening or concerning symptoms CONTROLLED SUBSTANCE DISCHARGE (Narcotoic/benzodiazepine/Flexeril/Phenergan) 1. You have been prescribed narcotic medications, it does have acetaminophen/Tylenol/paracetamol in it, DO NOT TAKE MORE THAN 4,00mg in 24 hours of Tylenol. TRAMADOL DOES NOT CONTAIN TYLENOL 2. Please understand that we cannot provide further refills of narcotics, benzodiazepines or controlled substances through the ED and her pain management will need to be through your provider. 3. While on these medications you cannot drive or operate heavy machinery. 4. You cannot sign legal documents or perform any duties such as this. 5. As long as you're taking opiate pain medications he should also be taking a stool softener such as Colace, Dulcolax, MiraLAX or prune juice, to help avoid constipation. Prescriptions: New hydrocodone-acetaminophen 5-325 mg tablet 1 tab PO Q6H PRN (Reason: pain) Qty: 10 0RF methocarbamol 750 mg tablet 750 mg PO Q12H PRN (Reason: muscle spasm) Qty: 14 0RF gabapentin 300 mg capsule 300 mg PO BEDTIME Qty: 30 0RF No Action bupropion HCl [Wellbutrin XL] 300 mg tablet extended release 24 hr 300 mg PO Q DAY Qty: 90 3RF trazodone 50 mg tablet 100 mg PO BEDTIME Qty: 180 3RF ramelteon [Rozerem] 8 mg tablet 8 mg PO HS Qty: 90 3RF (DME) Disabled Parking See Rx Instructions .ROUTE .MEDSUPPLY Qty: 1 0RF Rx Instructions: Patient qualifies for disabled parking as per the attached form. omeprazole 40 mg capsule,delayed release(DR/EC) 40 mg PO DAILY Qty: 90 3RF hydrochlorothiazide 25 mg tablet 25 mg PO DAILY Qty: 90 3RF methylphenidate HCl 10 mg capsule, ER biphasic 30-70 10 mg PO QAM Qty: 90 0RF Wegovy 1 mg/0.5 mL pen injector 1 mg SUBCUT Q7D Qty: 2 0RF Rx Instructions: use starting on week 8 Wegovy 0.25 mg/0.5 mL pen injector 0.25 mg SUBCUT QWEEK Qty: 2 0RF Rx Instructions: administer weeks 1 through 4 of therapy hydrocodone-acetaminophen 10-325 mg tablet 1 - 2 tab PO Q4-6H PRN (Reason: pain) Qty: 30 0RF docusate sodium 100 mg capsule 100 mg PO BID Qty: 180 3RF diphenhydramine HCl 50 mg capsule 50 mg PO Q6H PRN (Reason: itching) Qty: 250 3RF potassium chloride 20 mEq tablet extended release 20 meq PO DAILY Qty: 90 3RF estradiol [Estrace] 0.01 % (0.1 mg/gram) cream 1 appful vaginal DAILY Qty: 42.5 3RF Rx Instructions: place 1.5cm (1g) cream to area as directed by your doctor nightly for 14 days, then decrease frequency to twice weekly thereafter (DME) ResMed AirSense 10 See Rx Instructions .Route .MEDSUPPLY Rx Instructions: CPAP Min: 8 Max: 12 DME: STEVEN: 04/08/21 Referrals: Andrés Luque MD [Primary Care Provider] - Stand Alone Forms: Patient Portal/API
[2024-01-02] MEDS: GABAPENTIN 300 MG CAPSULE PO (20:20)
[2024-01-02] MEDS: HYDROMORPHONE 1 MG INJ IM (20:21)
--- NOTE | 2024-01-02 20:41 | EKG_ITS ---
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
[2024-01-02] MEDS: diazePAM 5 MG TABLET PO (20:48)
--- NOTE | 2024-01-02 21:12 | PC.NURSE ---
Pt lying back in [facility]. Looking at cell phone. No grimacing noted. Appears in NAD.
--- NOTE | 2024-01-02 21:28 | PC.NURSE ---
Pt says that she is ready to go home and rest. MD aware. Up to BR with WC.
[2024-01-02 21:44] VITALS: TEMP 37.3; O2SAT 98
== END 2024-01-02 21:45 | disposition home or self-care (01) ==
PROVIDERS: Emergency Provider Emergency Medicine; Family Provider Internal Medicine; PCP Internal Medicine
DX: M54.32 Sciatica, left side (principal); R07.9 Chest pain, unspecified
CPT/HCPCS: 93005; 96372; 99283; J1170

== ENCOUNTER → 2024-01-11 11:22 | Outpatient (CLI) | payer MEDICARE, MEDICAID, SELFPAY ==
[2024-01-11 12:51] LABS: Add Manual Diff / Slide Review NO; Basophils Absolute Auto 0 /uL (0-100); Basophils Percent Auto 0.5 % (0-2); Eosinophils Absolute Auto 200 /uL (0-450); Eosinophils Percent Auto 2.9 % (2-4); Hemoglobin 9.4 g/dL (12.0-16.0); Lymphocytes Absolute Auto 2200 /uL (1100-4500); Lymphocytes Percent Auto 29.6 % (25-40); Mean Corpuscular HGB Conc 31.2 % (30-36); Mean Corpuscular Hemoglobin 23.3 PG (26-34); Mean Corpuscular Volume 74.6 fL (80-100); Monocytes Absolute Auto 600 /uL (0-900); Monocytes Percent Auto 8.8 % (3-14); Neutrophils Absolute Auto 4300 /uL (1500-7000); Neutrophils Percent Auto 58.2 % (50-75); Platelet Count 308 X10^3/uL (150-400); Red Blood Cell Count 4.03 X10^6/uL (4.0-5.2); Red Cell Distribution Width 18.9 % (11.6-14.8); White Blood Cell Count 7.3 X10^3/uL (4.5-11.0)
[2024-01-11 13:17] LABS: Hemoglobin A1C% w Est Avg Glu 5.5 % (4.0-6.0)
[2024-01-11 13:34] LABS: BUN Creatinine Ratio 17.7 (6-22); Blood Urea Nitrogen 14 mg/dL (7-17); Calcium 8.4 mg/dL (8.4-10.2); Carbon Dioxide 27 mmol/L (22-32); Chloride 105 mmol/L (98-107); Estimated Glomerular Filt Rate > 60 mL/min (>60); Glucose 99 mg/dL (80-110); HEMOLYSIS < 15 (0-50); Sodium 135 mmol/L (137-145)
== END ==
PROVIDERS: Family Provider Internal Medicine; PCP Internal Medicine; Referring Provider Orthopaedic Surgery Orthopaedic Surgery of the Spine; Visit Provider Orthopaedic Surgery Orthopaedic Surgery of the Spine
DX: Z01.812 Encounter for preprocedural laboratory examination (principal); R73.9 Hyperglycemia, unspecified
CPT/HCPCS: 36415; 80048; 83036; 85025

== ENCOUNTER → 2024-01-14 13:37 | Outpatient (CLI) | payer MEDICARE, MEDICAID, SELFPAY ==
--- NOTE | 2024-01-14 | DI.CT.S_ITS ---
PROCEDURE: CT LUMBAR SPINE WO CON INDICATIONS: SPONDYLOISTHESIS LUMBAR REGION TECHNIQUE: Noncontrast 3 mm thick sections acquired from the T12 level to the sacrum. Sagittal and coronal reformats were constructed. For radiation dose reduction, the following was used: automated exposure control. COMPARISON: Outside Film, MR, MR LUMBAR SPINE WITHOUT CONTRAST, 12/28/2023, 11:16. [facility], CT, L-SPINE WITHOUT CONTRAST, 11/17/2013, 11:09. [facility], CR, XR LUMBAR SPINE FLEXION EXTENSION, 01/10/2024, 14:47. FINDINGS: Image quality: Excellent. Bones: Postsurgical changes are again seen from laminectomies at L3-4 through L5-S1 without fixation hardware. There is 2 mm grade 1 retrolisthesis at L1-2, 3 mm grade 1 retrolisthesis at L2-3 and L3-4, and 4 mm grade 1 anterolisthesis at L4-5. No acute vertebral body compression fractures. No suspicious lytic or blastic bony lesions. No pars defects. T12-L1: No significant spinal canal stenosis or neural foraminal narrowing. L1-L2: Disc bulging without significant spinal canal stenosis or neural foraminal narrowing. L2-L3: Disc bulging and mild bilateral facet hypertrophy, which result in mild narrowing of the spinal canal and mild bilateral neural foraminal narrowing. L3-L4: Status post laminectomy with decompression of the spinal canal. Mild disc bulging and moderate bilateral facet hypertrophy, which result in moderate to severe bilateral neural foraminal narrowing. L4-L5: Status post laminectomy with decompression of the spinal canal. Mild disc bulging and moderate to severe bilateral facet hypertrophy. Findings result in moderate to severe narrowing of the bilateral neural foramina. L5-S1: Status post laminectomy with decompression of the spinal canal. Mild disc bulging and moderate to severe bilateral facet hypertrophy, which result in [id number] bilateral neural foraminal narrowing. Soft tissues: No retroperitoneal masses or hematomas. Visualized aorta is normal in caliber. IMPRESSION: 1. Postsurgical changes from prior laminectomies at L3-4, L4-5, and L5-S1 with decompression of the spinal canal. 2. Multilevel degenerative disc disease and facet hypertrophy as described in detail in the body of the report. There is residual moderate to severe bilateral neural foraminal narrowing at the L3-4 and L4-5 levels. 3. No high-grade spinal canal stenosis. 4. Mild degenerative spondylolisthesis at L1-2 through L4-5. Approved by: Surya Kan M.D. on 01/15/2024 at 9:45
== END ==
PROVIDERS: Family Provider Internal Medicine; PCP Internal Medicine; Referring Provider Orthopaedic Surgery Orthopaedic Surgery of the Spine; Visit Provider Orthopaedic Surgery Orthopaedic Surgery of the Spine
DX: M43.16 Spondylolisthesis, lumbar region (principal); M51.37 Other intervertebral disc degeneration, lumbosacral region; M51.36 Other intervertebral disc degeneration, lumbar region; M47.816 Spondylosis without myelopathy or radiculopathy, lumbar region; M47.817 Spondylosis without myelopathy or radiculopathy, lumbosacral region; M48.061 Spinal stenosis, lumbar region without neurogenic claudication; M48.07 Spinal stenosis, lumbosacral region
CPT/HCPCS: 72131

== ENCOUNTER 2024-02-09 09:13 | Inpatient (IN) | payer MEDICARE, MEDICAID, SELFPAY ==
[2024-01-31 13:35] VITALS: BMI 37.8
[2024-02-09] VITALS (19 sets, daily range): BP systolic 84–142; BP diastolic 43–87; PULSE 63–100; RESP 11–18; TEMP 35.9–36.5; O2SAT 94–100; BMI 36.8
--- NOTE | 2024-02-09 | DI.RAD.S_ITS ---
PROCEDURE: XR LUMBAR SPINE 2-3V INDICATIONS: L3-4 L4-5 TLIF TECHNIQUE: 2 views of the lumbar spine were acquired in the operating room off C-arm fluoro. COMPARISON: None. FINDINGS: Bones: Posterior lumbar fusion noted at 2 levels with intervertebral disc spacers and posterior surgical rods secured by bilateral pedicle screws at 3 levels. Position and alignment appear anatomic. No complications are demonstrated. IMPRESSION: Postsurgical changes noted in the lumbar spine. Dictated by: Adam Williamson M.D. on 02/10/2024 at 12:43 Approved by: Adam Williamson M.D. on 02/10/2024 at 13:12
[2024-02-09] MEDS: ACETAMINOPHEN 325 MG TABLET 975 MG PO (10:12)
[2024-02-09] MEDS: LACTATED RINGERS 1,000 ML 42 ML IV ×2 (10:13→14:45)
--- NOTE | 2024-02-09 11:38 | PM.PREOP ---
Pre-operative Note Interval Note History & Physical reviewed/Exam performed by Physician: Yes Changes to H&P: No
[2024-02-09] MEDS: CEFAZOLIN 2 GM/100 ML PREMIX 100 ML IV ×2 (12:05→21:52)
--- NOTE | 2024-02-09 12:48 | SUR.OPER ---
Prone on spine table, head in foam head support, padded chest and pelvic supports, gel pad at knees, lower legs supported by pillows; nipples, genitalia and toes free of pressure, arms secured on foam padded arm boards at <90 degrees abduction. Tape over blanket at thighs secured to table. CONFIRMED BY DR. BLAND.
[2024-02-09] MEDS: BUPIVACAINE LIPOSOME 266 MG/20 ML VIAL INJ (14:51)
[2024-02-09] MEDS: BUPIVACAINE 0.25% (PF) 30 ML, EPINEPHrine 0.15 MG INJ (14:51)
--- NOTE | 2024-02-09 16:24 | PM.OP.1 ---
Operative Date/Time/Diagnoses Date of procedure: 02/09/24 Time of procedure: 12:30 Pre-op diagnosis: 1. L3-4, L4-5 post laminectomy syndrome 2. L3-4, L4-5 foramen stenosis with radiculopathy Post-op diagnosis: same Procedure & Clinicians Procedure: 1. L3-4, L4-5 Postero-lateral and posterior interbody fusion 2. L3-4, L4-5 interbody cage placement. 3. L3-4, L4-5 decompressive laminectomy with bilateral facetecomies 4. L3-4, L4-5 Posterior segmental instrumentation 5. [place] of bone marrow from iliac crest 6. Utilization of microsurgical technique and operating microscope 7. Utilization of robotic assisted navigation Same procedure as scheduled: Yes Indications: Patient has been having chronic back pain and worsening lumbar radiculopathy. Patient had a history of lumbar laminectomy at L3-4 L4-5 L5-S1 level with progressively worsening back pain and leg pain. Patient's pain worsened significantly 1 month ago and has been severely limiting her mobility. Patient was found to have L3-4 L4-5 spondylolisthesis with previous laminectomies bilaterally with bilateral severe foraminal stenosis correlating with her symptoms. Patient failed multiple conservative management with worsening pain weakness and numbness in her lower extremity. Patient has been having difficulty performing activity of daily living. After discussing risks benefits of treatment options, patient elected proceed with surgery. Surgeon: Boyd Call Mobile Service Rv Technician: Ivonne Cardozo Click Yes if Unassisted: No Anesthesia Type: General Operative Notes Closure Type: primary Specimen(s): none sent Prosthetic devices, grafts, tissues, transplants, or devices: Globus CREO screws, Rise cages Applied: catheter Estimated Blood Loss (mL): 150 Blood products transfused: none Procedure in detail: Patient was seen in the preoperative area. Risks and benefits of the surgery was discussed with the patient. Informed consent was obtained from the patient and placed in the chart. Surgical site was marked. Patient was taken to the operative room. General anesthesia was administered. Prophylactic antibiotic was given to the patient less than 30 min before the incision was made. Patient was placed into a prone position on the Terrence table. Patient's back was then prepped and draped in the sterile fashion. Time-out was performed at this time. After patient was prepped and draped, patient's PSIS was palpated and marked bilaterally. Small 1 cm incision was made over the PSIS for placement of the reference probes. Two trocar was placed into the PSIS 1 on each side. The reference probe was attached to the trocar of the reference apparatus. At this time the C-arm imaging was used to confirm AP and lateral of L3, L4-L5 vertebrae and merged the C-arm imaging using the InboundWriter robotic navigation system with the CT of the lumbar spine. After successful merging was completed and confirmed, skin marker was used to davis out the skin incision using the InboundWriter robotic arm. Bilateral incision was made at this time. Pre templated trajectory was used and guided using the InboundWriter robotic navigation system for bilateral L3 L4, L5 pedicle screw placement. This was done by using the robotic arm to guide the high-speed bur to make a cortical entry point. Next a drill was placed also using the robotic arm and guided using the navigation system drilling partially through bilateral L3, L4, L5 pedicles. Next L3, L4, L5 pedicle screws it was pre templated and measured was placed onto the power equipment driver and inserted into the pedicles bilaterally. After all 6 screws were placed C-arm imaging was taken of both AP and lateral to confirm the placement. Excellent placement of the screws were confirmed and a matched precisely with the pre planned screw placement using the navigation system. MARs retractor was inserted using Skuidivation guidence. Globus MARS retractors was placed inside the incision and docked onto the L3, L4 lamina. Using microsurgical technique and operating microscope, a L3, L4 laminectomy and L3-4, L4-5 facetectomy was performed using a Kerrison rongeur. Patient has previously performed a laminectomy in the midline create a significant amount of epidural scar tissue making decompression quite challenging. Total facetectomy at both L3-4 L4-5 level was necessary in order to prevent dural injury and or nerve root injury due to significant adhesion to the postop scar tissue. Patient had visible gross instability prior to completion of the decompression. There is gross instability at both L3-4 L4-5 level at the end of the decompression warranting fusion surgery at the same time. The laminectomy and facetectomy was performed in order to decompress patient's cauda equina as well as the nerve roots exiting at the L3-4, L4-5 level. Patient was found have severe lateral recess and neural foramen stenosis at both L3-4 L4-5 level which was fully decompressed after the laminectomy facetectomy. More than 75% of the facets were removed during the process of decompression rendering L3-4, L4-5 level grossly unstable and required a fusion procedure at the same time. The disc space at L3-4, L4-5 was identified, and a total diskectomy was performed at L3-4, L4-5 level. The endplates were decorticated using a rasp and shaver. The total diskectomy and decortication was performed at L3-4, L4-5 level in order to to accomplish a L3-4, L4-5 fusion. The local bone from the laminectomy and facetectomy was saved for local bone grafting. After the total diskectomy and decortication was completed, Viacel bone graft material was combined with local bone that was harvested earlier. At this time, a separate skin is incision was made over the iliac crest on the left. A Jamshidi needle was inserted into the iliac crest through a separate skin incision. 5 cc of bone marrow aspiration was obtained through the separate skin incision using a Jamshidi needle from the iliac crest. The bone marrow aspiration was combined with local bone and the Viacel bone grafting material. The bone grafting material was placed into the L3-4, L4-5 interbody space along with expandable cages. One cage each was inserted into the L3-4 L4-5 interbody space along with bone graft material. The cage was expanded to its maximum height using the torque limiting screwdriver. The disc preparation as well as the cage insertion were also performed under navigation guidance. After the cage was placed, AP and lateral C-arm imaging was taken to confirm placement of the cage and excellent position was confirmed. Globus MARS retractor was inserted and docked onto the L3-4, L4-5 posterolateral gutter on the right side. Using the power drill, posterior-lateral decortication was performed at L3-4, L4-5 level until bleeding cortical bone was identified. The remaining bone grafting material was placed into the L3-4, L4-5 posterior lateral gutter he order to accomplish posterolateral fusion at the L3-4, L4-5 level. At this time the tulips were attached to the L3, L4-L5 pedicle screw shanks. After measuring the length of the rods, they were inserted into the tulips of the pedicle screws and locked in place using locking caps and torque limiting screwdriver bilaterally. Total 6 caps and 2 titanium rods was used in order to complete the posterior instrumentation construct. After all the hardware was placed, and confirmed with AP and lateral C-arm imaging, the wound was then irrigated with sterile normal saline and packed with Ray-Susie gauze for 3 min to accomplish hemostasis. After the gauze was removed the deep fascia was closed with #1 Vicryl suture. The subcutaneous layer was closed with 2-0 Vicryl. The skin was closed with skin sheila. Patient tolerated the procedure well. There were no complications. Neuro monitoring system was used to monitor patient's neurologic status throughout entire procedure. There was no disturbance of the neural monitoring signals throughout the case. The Operation could not have been safely performed without compromising the technical result or length of the procedure, without the assistance of a skilled surgical territory manager. The surgical territory manager was medically necessary for proper positioning, retraction and manipulation of instruments, proper exposure, surgical preparation, and manipulation of tissue. Complications: none Post-operative Condition: stable Disposition: PACU Plan for aftercare: Admit to inpatient hospital
[2024-02-09] MEDS: HYDROMORPHONE 1 MG INJ 0.5 MG IV ×4 (16:45→17:05)
[2024-02-09] MEDS: OXYCODONE IR 5 MG TABLET PO ×2 (16:48→17:09)
[2024-02-09] MEDS: fentaNYL 100 MCG/2 ML INJ 25 MCG IV ×2 (16:55→17:04)
[2024-02-09] MEDS: hydrOXYzine 50 MG/ML INJ 25 MG IM (17:05)
[2024-02-09] MEDS: MIDAZOLAM 2 MG/2 ML VIAL 0.5 MG IV (17:15)
[2024-02-09] MEDS: ONDANSETRON 4 MG/2 ML INJ IV (17:18)
[2024-02-09] MEDS: MEPERIDINE 50 MG/ML INJ 25 MG IV (18:00)
[2024-02-09] MEDS: DOCUSATE 100 MG CAPSULE PO (21:50)
[2024-02-09] MEDS: ACETAMINOPHEN 325 MG TABLET 650 MG PO (21:51)
[2024-02-09] MEDS: TRAZODONE 50 MG TABLET 100 MG PO (21:51)
[2024-02-09] MEDS: SENNOSIDES 8.6 MG TABLET 17.2 MG PO (21:51)
[2024-02-09] MEDS: OXYCODONE IR 10 MG TABLET PO (21:51)
[2024-02-09] MEDS: PANTOPRAZOLE DR 40 MG TABLET PO (21:51)
[2024-02-09] MEDS: LACTATED RINGERS 1,000 ML 125 ML IV (21:52)
[2024-02-10] MEDS: OXYCODONE IR 10 MG TABLET PO ×5 (01:16→20:53)
[2024-02-10 01:30] VITALS: BP 110/62; PULSE 83; RESP 12; TEMP 36.4; O2SAT 93
[2024-02-10] MEDS: HYDROMORPHONE 0.5 MG INJ IV ×2 (03:57→23:17)
[2024-02-10] MEDS: CEFAZOLIN 2 GM/100 ML PREMIX 100 ML IV (04:03)
[2024-02-10] MEDS: LACTATED RINGERS 1,000 ML 125 ML IV (06:13)
[2024-02-10 06:43] LABS: Hematocrit 26.1 % (36-46); Hemoglobin 8.1 g/dL (12.0-16.0)
[2024-02-10 08:00] VITALS: BP 105/64; PULSE 80; RESP 18; TEMP 36.8; O2SAT 96
[2024-02-10] MEDS: DOCUSATE 100 MG CAPSULE PO ×2 (08:13→20:54)
[2024-02-10] MEDS: ACETAMINOPHEN 325 MG TABLET 650 MG PO ×4 (08:13→20:54)
[2024-02-10] MEDS: buPROPion XL 150 MG TAB 300 MG PO (08:13)
[2024-02-10] MEDS: POTASSIUM CHLORIDE 20 MEQ TAB PO (08:13)
[2024-02-10] MEDS: PANTOPRAZOLE DR 40 MG TABLET PO ×2 (08:13→20:54)
[2024-02-10] MEDS: hydroCHLOROthiazide 25 MG TABLET PO (08:13)
--- NOTE | 2024-02-10 10:13 | PT.IIE ---
Current Diagnoses Spondylolisthesis, lumbar region (02/09/24) Postlaminectomy syndrome, not elsewhere classified (02/09/24) Surgery Performed Operation Date: 02/09/24 11:15 Actual Procedures p L3-4, L4-5 TRANSFORAMINAL LUMBAR INTERBODY FUSION WITH POSTERIOR INSTRUMENTATION WITH ROBOT - Boyd Call MD Surgical History (Last Updated 01/31/24 @ 14:19 by Laya Quinteros, RN) History of back surgery (2007) History of carpal tunnel repair (2010) History of colonoscopy (04/11/18) History of ear surgery History of thumb surgery (2009) Status post delivery (01/27/90) Status post tonsillectomy and adenoidectomy Medical History (Last Updated 01/31/24 @ 14:29 by Laya Quinteros, KRISTY) Acid reflux Anemia (1986) Arthritis (2004) Attention-deficit hyperactivity disorder, predominantly inattentive type BMI 38.0-38.9,adult Chicken pox (1960) Chronic back pain (2004) Dorsalgia (06/16/11) Essential hypertension (08/07/16) Fatty tumor Fibromyalgia Foot pain (2012) Gastroesophageal reflux disease without esophagitis (04/03/16) Generalized anxiety disorder (06/16/11) Genitourinary syndrome of menopause Glaucoma (2009) Hayfever Hearing loss (1961) History of COVID-19 History of recurrent ear infection (1960) Lumbar post-laminectomy syndrome Lumbar spine pain (2004) Measles (1961) Microcytic anemia Mixed hyperlipidemia (06/16/11) Morbid obesity with body mass index (BMI) of 40.0 to 49.9 (08/07/16) Obstructive sleep apnea syndrome (06/16/11) Painful menstrual periods (1969) Panic attacks Pelvic floor dysfunction in female Plantar warts (2002) Pneumothorax Post traumatic stress disorder (PTSD) Shoulder pain (2008) Suicide attempt (2004) Tinnitus Vaginal atrophy Physical Therapy Inpatient Evaluation/Re-Eval M1 PT/OT-IP Prior Functional Status Start: 02/10/24 09:25 Freq: NEEDED Status: Active Protocol: Document 02/10/24 09:25 MB (Rec: 02/10/24 10:13 MB [id number]) Medical Review Prior Functional Status Medical History Reviewed Yes Diet/Fluid Consistency Regular Communication WNLs Mobility and Gait Mod I with 4WRW and hurrycane Activities of Daily Living and IADL's Mod I until early December and she has been homebound since then d/t pain and opioid use. Friends have been doing grocery shopping and assisting as needed. Social History Household Members none Living Arrangements Apartment/Condo Number of Floors (Floors) One Floor Number of Stairs To Enter/Railing? No steps to enter Home Environment Standard Height Toilet,Tub/ Shower Home Equipment Four Wheel Walker,Straight Cane,Hand Held Shower,Grab Bars In Shower Employment Status Retired M2 PT-IP Current Condition Start: 02/10/24 09:25 Freq: NEEDED Status: Active Protocol: Document 02/10/24 09:25 MB (Rec: 02/10/24 10:13 MB [id number]) Physical Therapy Current Condition Current Condition Evaluation Date 02/10/24 Treatment Diagnosis Lumbar surgery M3 PT-IP Subjective Start: 02/10/24 09:25 Freq: NEEDED Status: Active Protocol: Document 02/10/24 09:25 MB (Rec: 02/10/24 10:13 MB [id number]) Subjective Physical Therapy Visit Type Type Initial Evaluation Visit Start Time 09:25 Visit Stop Time 09:50 Number of MEDICAL AIDES TEACHER Visits 0 Physical Therapy Visit Comments Patient Comments Pt reports 7/10 back pain in supine upon therapy entering room. Therapy Pain Assessment Pain When Pain Assessed At Rest Pain Present Pain Present Pain Reported Location back Intensity 7 Scale Used Numeric (0 - 10) Description Acute,With Movement Pain Behaviors Calling Out,Facial Grimacing, Guarding Pain Management Techniques Modification of Treatment,Re- positioning,Timing of Activity with Medications M4 PT-IP Mobility and Gait Start: 02/10/24 09:25 Freq: NEEDED Status: Active Protocol: Document 02/10/24 09:25 MB (Rec: 02/10/24 10:13 MB [id number]) PT-Bed Mobility Assessment Rolling Type of Rolling Log Rolling,Roll to Right Level of Assist Contact Guard Assistance Supine to Sit Supine to Sit Contact Guard Assistance,1 Person Assistance,Head of Bed Elevated,Bedrails Scooting Scooting to Edge of Bed Moderate Assistance PT-Transfer Assessment Sit to and From Stand Sit to and from Stand Contact Guard Assistance,2 Person Assistance,Use of Upper Extremities Equipment Transfer Assistive Device Gait Belt,Front Wheeled Walker Orthotic/Prosthetic Devices or Brace: No Transfers Transfer Destination Toilet Transfer Technique Ambulation Transfer Ability Level of Assist Contact Guard Assistance,1 Person Assistance,Use of Upper Extremities Comments Mobility Comments Pt requires increased time and encouragement with bed moblity and she does well with log rolling, mod A to scoot legs/hips out to EOB once pt sitting EOB. Pt moves slowly and carefully and reports less pain and feeling better once standing up on feet. BP is stable in LUE with standing and pt does not have light- headedness. Gait training to BR and then OT to assist with ADLs in BR. Gait Assessment Gait Gait Assistance Required: Contact Guard Assist Distance (Feet) 20 Able to Maintain Weight Bearing Status Yes During Gait Assistive Devices Assistive Device Gait Belt,Front Wheeled Walker Orthotic/Prosthetic Devices or Brace: No Gait Deviations General Gait Pattern Antalgic,Decreased Stride Length,Decreased Feet Clearance,Flexed Trunk,Wide Based Gait Factors Limiting Gait Function Factors Limiting Gait Function Decreased Activity Tolerance, Decreased Strength,Pain,Poor Balance,Poor Safety Awareness Comments Gait Comments Pt mobilizes to BR with CGA, RW and slow speed and therapist manages IV pole PT-Balance Assessment Sitting Balance and Reactions Static Sitting Balance Ability Fair Dynamic Sitting Balance Ability Poor Standing Balance and Reactions Static Standing Balance Ability Good Dynamic Standing Balance Ability Fair Device Used RW M5 PT-IP Objective Assessments Start: 02/10/24 09:25 Freq: NEEDED Status: Active Protocol: Document 02/10/24 09:25 MB (Rec: 02/10/24 10:13 MB [id number]) Orientation Orientation/Cognition Level of Alertness Alert Orientation Name,Place,Situation Language Function Ability No Deficits Noted Safety Awareness Understands Safety Issues Memory Description No Deficits Noted Comments PT does not ask all of orientation questions as OT is asking questions when PT steps out to get recliner and pt appears A&O, can defer to OT note for further details Gross Range of Motion Upper Extremity ROM Impairments Defer to OT Lower Extremity ROM Impairments Functional movement in bed and with transfers and gait but increased pain in back with attempted B HS in the bed before getting up, so limited by pain post-op. Abdominal pannus limits hip flexion B in sitting EOB. Strength Lower Extremity Strength Assessment Within Functional Limits Coordination Assessment Gross Coordination Gross Coordination WNL Sensation Assessment Sensation Gross Sensation WNL Comments Sensation Comments Pt reports previous left sciatica symptoms are better though with ankle DF with leg straight in supine, she does feel tension in calf and posterior leg Muscle Tone Muscle Tone WNL Yes M6 PT-IP Treatment Start: 02/10/24 09:25 Freq: NEEDED Status: Active Protocol: Document 02/10/24 09:25 MB (Rec: 02/10/24 10:13 [id number]) Physical Therapy Treatment Exercises Exercises Ankle Pumps Education Education Provided Precautions,Weight Bearing Status,Post-Op Packet,Safety Other Treatments Other Treatment Performed Log rolling and back precaution discussion M7 PT-IP Assessment and Plan Start: 02/10/24 09:25 Freq: NEEDED Status: Active Protocol: Document 02/10/24 09:25 MB (Rec: 02/10/24 10:13 [id number]) PT Summary Assessment and Plan Potential Rehabilitation Potential Good Status of Condition at Evaluation Evolving Summary Impairments Pain,ROM,Strength,Balance,Bed Mobility,Transfers,Gait, Activity Tolerance Progress Towards Goals Progressing Toward Goals Assessment Summary Pt is a 63 y/o female presenting with high back pain in supine when not moving that does get bothered with bed mobility and then improves once up on feet and walking. She reports liking moving with regard to back pain pre-op as well. She will have daughter 24 hour assistance at her apartment at d/c and she would like to d/c home. Pt typically uses a 4WRW and it is in the room and will consider training with it next PT treatment. Overall, CGA for mobility except scooting out to EOB which is high for pt. Goals Bed Mobility Goal Independent Transfer Goal Independent,Front Wheeled Walker,Four Wheeled Walker Gait Goal Independent,Front Wheel Walker ,Four Wheel Walker Gait Distance 75 Days to Meet Goals 3 Frequency of Treatment Other frequency 1-2x/day Treatment Plan Physical Therapy Treatment Plan Bed Mobility Training,Transfer Training,Gait Training, Therapeutic Exercise,Balance Retraining,Post Op Education, Discharge Planning,Hot or Cold Pack,Neuromuscular Re-ed, Coordination Retraining,Manual Therapy Precautions Lumbar Precautions Log Roll,No Twisting,Limit Bending,Lifting Restriction of 10 lbs,Gait Belt above Incisional Area Weight Bearing Status Weight Bearing Status Weight Bear as Tolerated Recommendations To Nursing Amount of Assist Needed 2 Person Assist Discharge Recommendations PT Discharge Recommendations Home with 08/02 Assist Available Transportation Needs at Discharge Private Vehicle
--- NOTE | 2024-02-10 10:17 | OT.IP.EVAL ---
Addendum entered and electronically signed by Genna Velazco OT 02/10/24 12:07: Pt possibly need FWW and toilet paper aid. Original Note: Current Diagnoses Spondylolisthesis, lumbar region (02/09/24) Postlaminectomy syndrome, not elsewhere classified (02/09/24) Surgery Performed Operation Date: 02/09/24 11:15 Actual Procedures p L3-4, L4-5 TRANSFORAMINAL LUMBAR INTERBODY FUSION WITH POSTERIOR INSTRUMENTATION WITH ROBOT - Boyd Call MD Past Medical History (Last Updated 01/31/24 @ 14:29 by Laya Quinteros RN) Acid reflux Anemia (1986) Arthritis (2004) Attention-deficit hyperactivity disorder, predominantly inattentive type BMI 38.0-38.9,adult Chicken pox (1960) Chronic back pain (2004) Dorsalgia (06/16/11) Essential hypertension (08/07/16) Fatty tumor Fibromyalgia Foot pain (2012) Gastroesophageal reflux disease without esophagitis (04/03/16) Generalized anxiety disorder (06/16/11) Genitourinary syndrome of menopause Glaucoma (2009) Hayfever Hearing loss (1961) History of COVID-19 History of recurrent ear infection (1960) Lumbar post-laminectomy syndrome Lumbar spine pain (2004) Measles (1961) Microcytic anemia Mixed hyperlipidemia (06/16/11) Morbid obesity with body mass index (BMI) of 40.0 to 49.9 (08/07/16) Obstructive sleep apnea syndrome (06/16/11) Painful menstrual periods (1969) Panic attacks Pelvic floor dysfunction in female Plantar warts (2002) Pneumothorax Post traumatic stress disorder (PTSD) Shoulder pain (2008) Suicide attempt (2004) Tinnitus Vaginal atrophy Surgical History (Last Updated 01/31/24 @ 14:19 by Laya Quinteros RN) History of back surgery (2007) History of carpal tunnel repair (2010) History of colonoscopy (04/11/18) History of ear surgery History of thumb surgery (2009) Status post delivery (01/27/90) Status post tonsillectomy and adenoidectomy Occupational Therapy Inpatient Evaluation/Re-Eval M1 PT/OT-IP Prior Functional Status Start: 02/10/24 09:25 Freq: NEEDED Status: Active Protocol: Document 02/10/24 11:14 [facility] (Rec: 02/10/24 11:40 [facility] [id number]) Medical Review Prior Functional Status Medical History Reviewed Yes Diet/Fluid Consistency Regular Communication WNLs Mobility and Gait Mod I with 4WRW and hurrycane Activities of Daily Living and IADL's Mod I until early December and she has been homebound since then d/t pain and opioid use. Friends have been doing grocery shopping and assisting as needed. Social History Household Members none Living Arrangements Apartment/Condo Number of Floors (Floors) One Floor Number of Stairs To Enter/Railing? No steps to enter Home Environment Standard Height Toilet,Tub/ Shower Home Equipment Four Wheel Walker,Straight Cane,Shower Seat without Backrest,Hand Held Shower,Grab Bars In Shower Employment Status Retired M2 OT-IP Current Condition Start: 02/10/24 11:14 Freq: Status: Active Protocol: Document 02/10/24 11:14 [facility] (Rec: 02/10/24 11:40 [facility] [id number]) Occupational Therapy Current Condition Current Condition Evaluation Date 02/10/24 Treatment Diagnosis S/P L3-4, L4-5 TLIF Diagnosis Onset Date 02/09/24 Post Operative Precautions Lumbar Precautions Log Roll,No Twisting,Limit Bending,Lifting Restriction of 10 lbs,Gait Belt above Incisional Area M3 OT- IP Subjective and Pain Start: 02/10/24 11:14 Freq: Status: Active Protocol: Document 02/10/24 11:14 [facility] (Rec: 02/10/24 11:40 [facility] [id number]) OT- Subjective Occupational Therapy Visit Type Type Initial Evaluation Visit Start Time 09:22 Visit Stop Time 10:15 Occupational Therapy Visit Comments Patient Comments Pt willing to try to get up and wanting to try to use the bathroom. Patient/Caregiver Goals To go home. OT Pain Assessment Pain When Pain Assessed During Mobility Pain Present Pain Present Pain Reported Location back Intensity 8 Scale Used Numeric (0 - 10) M4 OT- IP ADL's Start: 02/10/24 11:14 Freq: Status: Active Protocol: Document 02/10/24 11:14 [facility] (Rec: 02/10/24 11:40 [facility] [id number]) OT GQT-[id number] General Evaluation Self-Feeding Ability Independent OT ADL-Grooming Comments OT Grooming Comments Not performed OT ADL-Oral Care Comments Oral Care Comments Pt not performed. OT ADL-Dressing General Eval Lower Body Dressing Ability Maximum Assistance Areas Needing Assistance Socks Comments OT Dressing Comments Education of use of wallcovering hanger to assist. Pt states has slip on crocs. OT ADL-Toileting General Evaluation Toileting Ability Minimal Assistance Areas Needing Assistance Perform Perineal Hygiene Comments OT Toileting Comments Pt not able to reach appropriately and needing assist for completeness. Suggested pt get assist or use of toilet paper aid to assist . OT ADL-Bathing Comments OT Bathing Comments Pt will benefit from assist and states to just sponge off for now. Pt my benefit from a tub bench. M5 OT- IP IADL's Start: 02/10/24 11:14 Freq: Status: Active Protocol: Document 02/10/24 11:14 [facility] (Rec: 02/10/24 11:40 [facility] [id number]) OT-Instrumental Activities of Daily Living Deficits IADL Deficits Identified Deficits Home Safety Awareness Awareness of Need for Assistance at Home Good Awareness Ability to Problem Solve Emergency Able to Problem Solve Situations Home Safety Comments Pt to have her daughter to stay with her to assist. Medication Management Medication Management Comments Pt will benefit from assist . Money Management Money Management Comments Pt will benefit from assist as a little groggy from pain medications. Meal Preparation Meal Preparation Caregiver Provides Assist Dot Net Developer Dot Net Developer Caregiver Provides Assist M6 OT- IP Functional Cognition Start: 02/10/24 11:14 Freq: Status: Active Protocol: Document 02/10/24 11:14 [facility] (Rec: 02/10/24 11:40 [facility] [id number]) Cognitive Factors Limiting Selfcare Function Cognitive Ability Level of Alertness Alert Patient Orientation Name,Age,Birthday,Month,Date, Year,Day of Week,Place, Situation Attention Span Ability Capable of Focused Attention, Capable of Sustained Attention Ability to Follow Commands Able to Follow One Step Commands Cognitive Comments Cognitive Assessment Comments Pt needing encouragement as having a lot of pain at this time but able to participate in bed mobility, transfer and toileting needs. OT- Vision and Hearing OT- Hearing Assessment OT- Hearing Assessment WFL OT- Vision Assessment Visual Acuity Glasses All The Time Visual Attentiveness WFL Occular Pursuits WFL M7 OT- IP Mobility and Balance Start: 02/10/24 11:14 Freq: Status: Active Protocol: Document 02/10/24 11:14 [facility] (Rec: 02/10/24 11:40 [facility] [id number]) OT- Bed Mobility Assessment Supine to Sit Supine to Sit Assist Contact Guard Assistance Sit to Supine Sit to Supine Assist Minimal Assistance Scooting Scooting to Edge of Bed Moderate Assistance OT-Transfer Assessment Sit to and From Stand Sit to and from Stand Minimal Assistance Transfers Transfer Ability Minimal Assistance Technique Transfer Destination Bed,Chair,Toilet Transfer Technique Stand Step Pivot Devices Transfer Assistive Devices Gait Belt,Front Wheeled Walker Comments Mobility Comments CGA x2 or FACUNDO to stand and with the FWW. OT- Balance Assessment Sitting Balance and Reactions Static Sitting Balance Ability Good Dynamic Sitting Balance Ability Fair Standing Balance and Reactions Static Standing Balance Ability Fair Dynamic Standing Balance Ability Poor M8 OT- IP Objective Assessments Start: 02/10/24 11:14 Freq: Status: Active Protocol: Document 02/10/24 11:14 [facility] (Rec: 02/10/24 11:40 [facility] [id number]) OT Gross Range of Motion Upper Extremity Range of Motion ROM Impairments WFL for needs. OT Strength Comments Strength Comments WFL for needs. M9 OT- IP Assessment and Plan Start: 02/10/24 11:14 Freq: Status: Active Protocol: Document 02/10/24 11:14 [facility] (Rec: 02/10/24 11:40 [facility] [id number]) OT Summary Assessment and Plan Potential Rehabilitation Potential Good Analytic Complexity at Evaluation Low Summary OT Impairments Pain,Balance,Functional Mobility,Grooming,Dressing, Toileting,Bathing,Toilet Transfers,Shower Transfers, Activity Tolerance Progress Towards Goals Slow Progress due to Pain,Slow Progress due to Activity Tolerance Assessment Summary Pt low complexity with main barriers are pain and activity tolerance and will need 24/7 assist at this time. Pt able to tolerate use of the toilet bu unable to go and just able to sit up a few minutes before having to lie down. Pt to go home with 24/7 assist when medically stable. Goals Grooming Goal Independent Dressing Goal Independent,Basketballs And Footballs Reverser Toileting Goal Minimal Assistance Bathing Goal Minimal Assistance Toilet Transfer Goal Independent Shower Transfer Goal Contact Guard Assistance Days to Meet Goals 7 Frequency of Treatment Other frequency 5x/wk Treatment Plan OT Treatment Plan ADL Training,Functional Mobility,Patient/Family Education,Discharge Planning Discharge Recommendations OT Discharge Recommendations Home with 24/7 Assist Available Transportation Needs at Discharge Private Vehicle
--- NOTE | 2024-02-10 13:55 | CM.DANOTE ---
Initial DCP Assessment Visit Note Reviewed EMR and team rounds for status updates. Met with pt at bedside to introduce self and role, pt was found to be alert/oriented and able to discuss her concerns/questions/and plan for home d/c once she's medically cleared for d/c. Pt resides in her own apartment alone. She has a daughter that will be transporting her as well as providing initial recovery care support once home. Pt denies any need for assistance or resources from DCP at this time. Payor: Medicare Attending: Dr. Call Pt is a 63 year-old F post-op day 1 from her lumbar surgery. She has a hx of worsening back pain and left-sided sciatica and the last 3-weeks of constant, radiating in her lower back and down both legs. She tried conservative efforts at pain relief including NSAIDS, steroids, and pain meds, and steroids with very little relief. She is doing well postoperatively today. Plan is likely d/c tomorrow after working with therapies. DCP will continue to follow for any further evolving needs prior to discharge. Discharge Planning/Care Management CM Discharge Assessment Start: 02/10/24 13:52 Freq: Status: Active Protocol: Document 02/10/24 13:52 [facility] (Rec: 02/10/24 13:55 [facility] [id number]) Discharge Planning Assessment Assigned Aerial Hurricane Hunter URSULA Jenkins Advance Directives? No History Provided By Patient,Medical Record Has Patient been admitted in last 30 No days? Prior Living Arrangements Apartment/Condo Household Members none Type of transporation used prior to Drives own vehicle admit Independent with ADL's Yes Is patient alert and oriented? Yes Caregiver for Another No DME Already Rented / Owned FWW / Walker Comment Pt uses a walker at baseline. Patient/Family Preference OP PT Therapy Barriers to Discharge No Discharge Plan Home Community Services Physical Therapy Transportation Arrangement Daughter Referrals Initiated None needed Whiteboard Updated in Patient Room with Yes name and ext. # of Aerial Hurricane Hunter Review Status In Process Please Provide Date Initial DC 02/10/24 Assessment Was Performed Pre-Anesthesia Assessment Start: 01/31/24 13:35 Freq: Status: Active Protocol: Document 01/31/24 13:35 [facility] (Rec: 01/31/24 14:38 [facility] [id number]) Pre-Anesthesia Assessment Patient Information Reviewed Via Phone Assessment Assessment Completed With Patient Diagnostic Results BMP/CMP,CBC,EKG Comment Labs/EKG @ Primary Care Provider Andrés Luque Seen Specialist in Last 12 Months Yes Specialist Seen Emergency,Beam Racker, Orthopedist,Other Comment Rheumatology, gastrology, Psychiatry Primary Language Faroese Senior Mechanical Designer Required No Height 157.48 cm Weight 93.894 kg Body Mass Index (BMI) 37.8 Hearing Ability Normal,Hearing Impaired Visual Assist Glasses Dentition Type Teeth, Natural Present Barriers to Learning Auditory,Cognitive impairment Hx Anesthesia Reactions Yes: Difficult time coming out of anesthesia after colonoscopy Hx Family Anesthesia Reaction Yes: Grandfather was allergic to it/ patient states it was not MH Hx Malignant Hyperthermia No Hx Blood Transfusions No Hx Blood Transfusion Reaction No Anesthesia Review Requested No Systems Trainer No alcohol intake current Alcohol Intake Frequency Other: Pt has obstained months and months ago Smoking Status Former smoker how long ago did patient quit smoking Quit in high school Substance Use Type does not use Pain Present Pain Reported Musculoskeletal Symptoms Abnormal Gait,Back Pain, Difficulty Walking,Muscle Weakness,Numbness,Radiating Pain into Limb History of Falling (Recent or History of No ) Comment Unstable, balance issues Prosthesis or Orthotic Device Cane,Front Wheel Walker Mental Status Oriented to own ability Is patient on oxygen? No Does patient have MCDERMOTT/SOB No Hx Sleep Apnea Yes CPAP/BIPAP use prescribed used rarely Will Bring CPAP/BIPAP DOS Yes Currently Taking a Beta Avila No Can You Climb a Flight of Stairs Without No SOB Hx Chest Pain Yes: Due to frequent panic attacks Hx SOB No Hx Syncope or Dizziness No Anti-Coagulant Therapy No Has a Engineering Group Manager No Cardiac Testing No Hx Pacemaker/ICD No Pacemaker Rep Required? No Cardiac Clearance Received No Diet Type At Home Regular,Low Carb Dysphagia Yes: at times w/pills and water Gastrointestinal Symptoms Constipation,Reflux Bladder Pattern Frequency,Urgency Urinary Catheter Present No Hx Urinary Self Catheterization No Diabetes No HgbA1C 5.5 Date 01/11/24 Patient No Lactating No Presence of External or Internal Medical No Devices Received a COVID vaccine? Yes Marital Status Lives With none Current Living Arrangements Apartment/Condo Number of Floors (Floors) One Floor Number of Stairs To Enter/Railing? 0 Support System Child/Children,Friend(s) Does the Patient Have Assistance After Yes: Daughter will stay w/pt Surgery to assist at DC Patient Discharge Plan Description Return Home Comment Pt asvised overnight length of stay per surgeon Feels Safe in Current Environment Yes Been Physically Hurt or Threatened By a No Person in Current Environment Do you have thoughts of harming yourself None or others? Are you currently considering suicide? No Do you have a plan to hurt yourself or No Plan,Vague others? If Yes, Provider Notified Pt states due to pain, is in constant communications w/ physician Do You Have Any Spiritual Beliefs That No May Affect Your HC Choices? Do You Have Any Cultural Practices That No May Affect Your HC Choices? Comment Bahai Who Can We Speak to About Patient's Care Family, friends Identifying Code for Release of Patient Declines to issue Information Health Care Proxy/Next of Kin Ja (daughter) Health Care Proxy Emergency Contact Name Audra NatalieCrystalMorgan friend) Emergency Contact Advance Directives? No Power of Assembler Equipment No PAC Instructions Bring CPAP/BIPAP,Durable medical equipment,Medications to take/avoid,Nasal antibiotic ,No ETOH/petroleum product on skin DOS,NPO,Post-op transportation,Pre-surgical wash,Sensory aids,Sturdy shoes /comfortable clothes,Do not bring valuables and remove jewelry
--- NOTE | 2024-02-10 15:12 | PT.IPTN ---
Current Diagnoses Spondylolisthesis, lumbar region (02/09/24) Postlaminectomy syndrome, not elsewhere classified (02/09/24) Surgery Performed Operation Date: 02/09/24 11:15 Actual Procedures p L3-4, L4-5 TRANSFORAMINAL LUMBAR INTERBODY FUSION WITH POSTERIOR INSTRUMENTATION WITH ROBOT - Boyd Call MD Physical Therapy Treatment Note M2 PT-IP Current Condition Start: 02/10/24 09:25 Freq: NEEDED Status: Active Protocol: Document 02/10/24 09:25 MB (Rec: 02/10/24 10:13 MB [id number]) Physical Therapy Current Condition Current Condition Evaluation Date 02/10/24 Treatment Diagnosis Lumbar surgery M3 PT-IP Subjective Start: 02/10/24 09:25 Freq: NEEDED Status: Active Protocol: Document 02/10/24 14:46 MB (Rec: 02/10/24 15:12 MB [id number]) Subjective Physical Therapy Visit Type Type Treatment Note Visit Start Time 14:55 Visit Stop Time 15:05 Number of DRY CELL SEALER Visits 0 Physical Therapy Visit Comments Patient Comments Pt states she wants to get OOB and that they had to put her back earlier and she couldn't walk because her BP dropped. Therapy Pain Assessment Pain When Pain Assessed At Rest Pain Present Pain Present Pain Reported Location back Intensity 2 Scale Used Hartmann-Bethea (Faces) Pain Management Techniques Re-positioning M4 PT-IP Mobility and Gait Start: 02/10/24 09:25 Freq: NEEDED Status: Active Protocol: Document 02/10/24 14:46 MB (Rec: 02/10/24 15:12 MB [id number]) PT-Bed Mobility Assessment Rolling Type of Rolling Log Rolling,Roll to Right Level of Assist Standby Assistance Supine to Sit Supine to Sit Standby Assistance,1 Person Assistance,Head of Bed Elevated,Bedrails Scooting Scooting to Edge of Bed Contact Guard Assistance PT-Transfer Assessment Sit to and From Stand Sit to and from Stand Contact Guard Assistance,2 Person Assistance,Use of Upper Extremities Equipment Transfer Assistive Device Gait Belt,Front Wheeled Walker Orthotic/Prosthetic Devices or Brace: No Transfers Transfer Destination Chair Transfer Technique Ambulation Transfer Ability Level of Assist Contact Guard Assistance,1 Person Assistance,Use of Upper Extremities Comments Mobility Comments BP and HR in LUE does not drop with supine to sit and is low 100s/70s. Better scooting of hips out to EOB this afternoon . Gait Assessment Gait Gait Assistance Required: Contact Guard Assist Distance (Feet) 2 Able to Maintain Weight Bearing Status Yes During Gait Assistive Devices Assistive Device Gait Belt,Front Wheeled Walker Orthotic/Prosthetic Devices or Brace: No Gait Deviations General Gait Pattern Antalgic,Decreased Stride Length,Decreased Feet Clearance,Flexed Trunk,Wide Based Gait Factors Limiting Gait Function Factors Limiting Gait Function Decreased Activity Tolerance, Decreased Strength,Pain,Poor Balance,Poor Safety Awareness Comments Gait Comments Nsg clears pt to get up to chair d/t her reports of BP dropping earlier this date with nsg PT-Balance Assessment Sitting Balance and Reactions Static Sitting Balance Ability Good Dynamic Sitting Balance Ability Good Standing Balance and Reactions Static Standing Balance Ability Good Dynamic Standing Balance Ability Good Device Used RW M5 PT-IP Objective Assessments Start: 02/10/24 09:25 Freq: NEEDED Status: Active Protocol: Document 02/10/24 09:25 MB (Rec: 02/10/24 10:13 MB [id number]) Orientation Orientation/Cognition Level of Alertness Alert Orientation Name,Place,Situation Language Function Ability No Deficits Noted Safety Awareness Understands Safety Issues Memory Description No Deficits Noted Comments PT does not ask all of orientation questions as OT is asking questions when PT steps out to get recliner and pt appears A&O, can defer to OT note for further details Gross Range of Motion Upper Extremity ROM Impairments Defer to OT Lower Extremity ROM Impairments Functional movement in bed and with transfers and gait but increased pain in back with attempted B HS in the bed before getting up, so limited by pain post-op. Abdominal pannus limits hip flexion B in sitting EOB. Strength Lower Extremity Strength Assessment Within Functional Limits Coordination Assessment Gross Coordination Gross Coordination WNL Sensation Assessment Sensation Gross Sensation WNL Comments Sensation Comments Pt reports previous left sciatica symptoms are better though with ankle DF with leg straight in supine, she does feel tension in calf and posterior leg Muscle Tone Muscle Tone WNL Yes M6 PT-IP Treatment Start: 02/10/24 09:25 Freq: NEEDED Status: Active Protocol: Document 02/10/24 09:25 MB (Rec: 02/10/24 10:13 MB [id number]) Physical Therapy Treatment Exercises Exercises Ankle Pumps Education Education Provided Precautions,Weight Bearing Status,Post-Op Packet,Safety Other Treatments Other Treatment Performed Log rolling and back precaution discussion M7 PT-IP Assessment and Plan Start: 02/10/24 09:25 Freq: NEEDED Status: Active Protocol: Document 02/10/24 14:46 MB (Rec: 02/10/24 15:12 MB [id number]) PT Summary Assessment and Plan Potential Rehabilitation Potential Good Status of Condition at Evaluation Evolving Summary Impairments Pain,ROM,Strength,Balance,Bed Mobility,Transfers,Gait, Activity Tolerance Progress Towards Goals Progressing Toward Goals Assessment Summary Pt con't with c/o pain and states her BP dropped this morning when she got up with nsg and nsg clears PT to get pt up to chair and BP does not drop with supine to sit and pt does not remain on feet long. Con't PT efforts. Goals Bed Mobility Goal Independent Transfer Goal Independent,Front Wheeled Walker,Four Wheeled Walker Gait Goal Independent,Front Wheel Walker ,Four Wheel Walker Gait Distance 75 Days to Meet Goals 3 Frequency of Treatment Other frequency 1-2x/day Treatment Plan Physical Therapy Treatment Plan Bed Mobility Training,Transfer Training,Gait Training, Therapeutic Exercise,Balance Retraining,Post Op Education, Discharge Planning,Hot or Cold Pack,Neuromuscular Re-ed, Coordination Retraining,Manual Therapy Other Recommendations and Next Treatment Try gait with 4WRW Focus Precautions Lumbar Precautions Log Roll,No Twisting,Limit Bending,Lifting Restriction of 10 lbs,Gait Belt above Incisional Area Weight Bearing Status Weight Bearing Status Weight Bear as Tolerated Recommendations To Nursing Amount of Assist Needed 2 Person Assist Discharge Recommendations PT Discharge Recommendations Home with 08/02 Assist Available Other Discharge Recommendations Unsure if pt will need 2WRW, moves well enough that may do fine with her 4WRW Transportation Needs at Discharge Private Vehicle
[2024-02-10 15:51] VITALS: BP 86/56; PULSE 87; RESP 18; TEMP 36.7; O2SAT 95
--- NOTE | 2024-02-10 16:19 | P.PN_ITS ---
Subjective Subjective Interval history: Karlie is a 63 year old female who is POD#1 s/p L3-4, L4-5 Postero-lateral and posterior interbody fusion by Dr. Call. Patient is tearful during our interview today, she states she can't seem to get comfortable in bed, she feels she is putting too much pressure on her back by lying down so much. She denies any shooting pain down either leg. She has been wanting to get up and walk around more than she has been able to. She states she feels better when she is standing or walking than lying down. She has had episodes of fatigue and LBP when standing which has limited her ability to mobilize more. Most recent H&H 8.1 and 26.1. She lives at home alone, her daughter flew in to be with her post-op but will be leaving on February 18. She does not have much other support in the area. She is anxious about not having support once he daughter leaves. She has no steps in her home. She does have a walker already. Does complain of LLQ pain, she reports she has had intermitted LLQ pain worse w/ lying on her left side for atleast a month now. She states she has been gassy, has not had a BM since surgery. Urinating well w/o issue. She states she can feel a lump when she stands up. Denies fever, chills, chest pain, SOB, nausea, vomiting. Exam Vital Signs (past 8 hours): - 02/10/24 15:51 Temperature 98.0 F Pulse Rate 87 Respiratory Rate 18 Blood Pressure 86/56 L Pulse Oximetry 95 Oxygen Delivery Method Nasal Cannula Oxygen Flow Rate 0 Narrative Exam Narrative: Patient lying in bed during our interview today. No acute distress. AOx3. Patient is tearful. 5/5 strength with DF, PF, EHL bilaterally. Gross sensation intact throughout bilateral lower extremities. Calves soft and non-tender bilaterally. SCDs are on and functioning. Post-surgical dressing clean, dry and intact over the lumbar spine. GI Other: Point tenderness to deep palpation at the LLQ, no palpable lump to me, patient has an obese abdomen. Objective Labs 02/10/24 06:24 Labs: Laboratory Results - last 24 hr 02/10/24 06:24 Hgb 8.1 L Hct 26.1 L PFSH Medical History (Updated 01/31/24 @ 14:29 by Laya Quinteros RN) History of COVID-19 Acid reflux Panic attacks Lumbar post-laminectomy syndrome Microcytic anemia Pelvic floor dysfunction in female Genitourinary syndrome of menopause BMI 38.0-38.9,adult Fibromyalgia Tinnitus Vaginal atrophy Painful menstrual periods (1969) History of recurrent ear infection (1960) Glaucoma (2009) Fatty tumor Plantar warts (2002) Arthritis (2004) Shoulder pain (2008) Lumbar spine pain (2004) Foot pain (2012) Chronic back pain (2004) Suicide attempt (2004) Pneumothorax Hearing loss (1961) Anemia (1986) Chicken pox (1960) Measles (1961) Hayfever Morbid obesity with body mass index (BMI) of 40.0 to 49.9 (08/07/16) Essential hypertension (08/07/16) Gastroesophageal reflux disease without esophagitis (04/03/16) Dorsalgia (06/16/11) Obstructive sleep apnea syndrome (06/16/11) Generalized anxiety disorder (06/16/11) Mixed hyperlipidemia (06/16/11) Attention-deficit hyperactivity disorder, predominantly inattentive type Post traumatic stress disorder (PTSD) Surgical History (Updated 01/31/24 @ 14:19 by Laya Quinteros RN) History of colonoscopy (04/11/18) History of ear surgery History of thumb surgery (2009) History of back surgery (2007) History of carpal tunnel repair (2010) Status post delivery (01/27/90) Status post tonsillectomy and adenoidectomy Family History Father Cancer Hypertension High cholesterol Grandfather Cancer Mental health problem Depression Leukemia Grandmother Mental health problem Alzheimer's dementia Grandfather Diabetes mellitus Hypertension High cholesterol Grandmother Heart disease Social History marital status: number of children: 2 household members: none lives independently: Yes caregiver/support person: No housing: apartment pets and animals: Yes education level: college occupational status: disabled 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 travel history: recent leisure activities: exercise, art and other Smoking Status: Former smoker Tobacco: How many years used: 0 quit status: quit date established second hand exposure: Yes alcohol intake: current substance use type: does not use Assessment & Plan Post-op Postoperative Procedures: Procedures Operation Date: 02/09/24 11:15 Actual Procedure Side Surgeon p L3-4, L4-5 TRANSFORAMINAL LUMBAR INTERBODY FUSION WITH POSTERIOR INSTRUMENTATION WITH ROBOT Boyd Call MD Postoperative day: 1 Postoperative plan narrative: 1) Will re-evaluate final discharge disposition tomorrow, considering SNF vs home w/ daughter. 2) Continue multimodal pain management. 3) Mechanical DVT prophylaxis. SCDs to be on and functioning while in bed. 4) Continue to work w/ PT and OT here in the hospital to improve mobility. If patient is able to mobilize better tomorrow w/ only a 1 person assist may consider d/c to home. Maintain BLT restrictions. 5) Will continue to monitor H&H and blood pressures. May consider additional fluids tomorrow if necessary. 6) LLQ pain --> will place consult to general surgery to r/o hernia. I will order a CT w/ contrast as well. 7) Keep dressing intact, clean, dry until 2 week postop appointment. No soaking the incision site in pools or tubs. No topical ointments or creams to the incision site. 8) Follow up at [facility] orthopedics in 2 weeks for a postop appointment and wound check. All patient and daughters questions were answered, they demonstrates understanding and are in agreement with the plan. Call our office if any questions or concerns arise.
--- NOTE | 2024-02-10 17:40 | DI.CT.S_ITS ---
PROCEDURE: CT ABDOMEN PELVIS W CON INDICATIONS: r/o hernia LLQ pain TECHNIQUE: After the administration of intravenous contrast, axial sections acquired from the lung bases to the pubic symphysis. Coronal and sagittal reformats were performed. For radiation dose reduction, the following was used: automated exposure control, adjustment of mA and/or kV according to patient size. COMPARISON: [facility], MR, MR LUMBAR SPINE WO CON, 12/28/2023, 11:16. [facility], CT, CT LUMBAR SPINE WO CON, 01/14/2024, 14:06. FINDINGS: Image quality: Diagnostic. Lower Chest: No significant findings. ABDOMEN: Liver: Approximately 10. Index mass measures 9 cm in segment 7 (series 2, image 21). Gallbladder: No radiopaque gallstones or wall thickening. Biliary ducts: No biliary dilation. Pancreas: No ductal dilation. Spleen: Size is within normal limits. Adrenal Glands: No adrenal nodules. Kidneys and Ureters: No hydronephrosis. No solid mass. No complex renal cystic lesion which requires follow up. Stomach and Bowel: Normal colonic caliber, without significant wall thickening. For occult debris within the small bowel. Minimal diverticulosis. Peritoneum: No abnormal intraperitoneal fluid. No free air. Ventral Wall: No significant ventral hernia. 1.7 cm soft tissue mass in subcutaneous fat of the left flank (series 2, image 47). Abdominal Nodes: No retroperitoneal or mesenteric adenopathy by size criteria. Vessels: Aorta and inferior vena cava are normal in size. PELVIS: Pelvic Organs: The uterus is enlarged, with a ill-defined endometrium. Bladder: No bladder wall thickening, accounting for underdistention. Pelvic Nodes: No enlarged lymph nodes. Miscellaneous: No inguinal hernias are seen. Bones: Soft tissue mass through the lower segment of the sacrum measuring 3.6 x 4.6 cm. Surgical fusion L3 through L5. Subcutaneous gas along the surgical bed, as expected. IMPRESSION: Multiple liver masses, concerning for metastatic disease. Primary is likely endometrial cancer, as the uterus is enlarged with ill-defined endometrium. Expansile bony mass through the left lower segment of the sacrum measuring 3.6 x 4.6 cm. Dictated by: Josh Mars M.D. on 02/10/2024 at 18:26 Approved by: Josh Mars M.D. on 02/10/2024 at 18:34
[2024-02-10 20:00] VITALS: BP 119/60; PULSE 96; RESP 18; TEMP 37.6; O2SAT 96
[2024-02-10] MEDS: TRAZODONE 50 MG TABLET 100 MG PO (20:49)
[2024-02-10] MEDS: SENNOSIDES 8.6 MG TABLET 17.2 MG PO (20:54)
[2024-02-10] MEDS: SODIUM CHLORIDE 0.9% FLUSH 10 ML IV (23:18)
[2024-02-10 23:29] VITALS: BP 103/60; PULSE 83; RESP 18; TEMP 36.7; O2SAT 92
[2024-02-11] MEDS: LACTATED RINGERS 1,000 ML 125 ML IV ×3 (01:12→18:54)
[2024-02-11 01:15] VITALS: BP 97/54; PULSE 80
[2024-02-11] MEDS: OXYCODONE IR 10 MG TABLET PO ×5 (01:51→20:31)
[2024-02-11 06:52] VITALS: BP 101/58; PULSE 89; RESP 22; O2SAT 92
[2024-02-11 08:00] VITALS: BP 104/56; PULSE 86; RESP 18; TEMP 36.9; O2SAT 94
[2024-02-11] MEDS: hydroCHLOROthiazide 25 MG TABLET PO (08:41)
[2024-02-11] MEDS: POTASSIUM CHLORIDE 20 MEQ TAB PO (08:41)
[2024-02-11] MEDS: PANTOPRAZOLE DR 40 MG TABLET PO ×2 (08:41→20:32)
[2024-02-11] MEDS: ACETAMINOPHEN 325 MG TABLET 650 MG PO ×3 (08:41→20:31)
[2024-02-11] MEDS: buPROPion XL 150 MG TAB 300 MG PO (08:43)
[2024-02-11] MEDS: SODIUM CHLORIDE 0.9% FLUSH 10 ML IV (08:43)
[2024-02-11] MEDS: polyethylene glycoL 3350 17 GM POWD.PACK PO (08:44)
--- NOTE | 2024-02-11 09:45 | PT.IPTN ---
Current Diagnoses Spondylolisthesis, lumbar region (02/09/24) Postlaminectomy syndrome, not elsewhere classified (02/09/24) Surgery Performed Operation Date: 02/09/24 11:15 Actual Procedures p L3-4, L4-5 TRANSFORAMINAL LUMBAR INTERBODY FUSION WITH POSTERIOR INSTRUMENTATION WITH ROBOT - Boyd Call MD Physical Therapy Treatment Note M2 PT-IP Current Condition Start: 02/10/24 09:25 Freq: NEEDED Status: Active Protocol: Document 02/10/24 09:25 MB (Rec: 02/10/24 10:13 MB [id number]) Physical Therapy Current Condition Current Condition Evaluation Date 02/10/24 Treatment Diagnosis Lumbar surgery M3 PT-IP Subjective Start: 02/10/24 09:25 Freq: NEEDED Status: Active Protocol: Document 02/11/24 09:45 AB (Rec: 02/11/24 11:36 AB [id number]) Subjective Physical Therapy Visit Type Type Treatment Note Visit Start Time 09:45 Visit Stop Time 10:30 Notes pt seen for split visits: 945 am - 955 am and [id number] 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 Physical Therapy Visit Comments Patient Comments agreeable to do PT Therapy Pain Assessment Pain When Pain Assessed At Rest Pain Present Pain Present Pain Reported Location back Scale Used pain scale not stated Pain Behaviors Facial Grimacing,Guarding Pain Management Techniques Distraction,Modification of Treatment,Re-positioning, Timing of Activity with Medications M4 PT-IP Mobility and Gait Start: 02/10/24 09:25 Freq: NEEDED Status: Active Protocol: Document 02/11/24 09:45 AB (Rec: 02/11/24 11:36 AB [id number]) PT-Transfer Assessment Sit to and From Stand Sit to and from Stand Maximum Assistance,1 Person Assistance,Use of Upper Extremities Equipment Transfer Assistive Device Gait Belt,Front Wheeled Walker Orthotic/Prosthetic Devices or Brace: No Transfers Transfer Destination Toilet Transfer Technique ambulated Transfer Ability Level of Assist Contact Guard Assistance,1 Person Assistance,Use of Upper Extremities Comments Mobility Comments pt found sitting on the chair. c/o back pain. pt requesting to use the toilet. BP sitting : 102/57. completed sit to stand x 2 attempts. unable to stand on first attempt with L knee buckling. cued pt on techniques for sit to stand and able to complete max A and max cues. pt ambulated from the chair to the toilet using FWW CGA ~ 10 ft. max A for controlled descent to the chair. pt needing to use the toilet for a few minutes call light positioned next to pt. informed nurse. checked back on pt after a few minutes and was using the toilet. pt stated that she cannot clean herself and is needing assist but also feels clammy and sweaty. completed sit to stand max A using grab bar. NAC assisted pt with hygiene care. chair positioned close to pt and pt took a few steps to transfer to chair using fWW ~ 2 ft. pt sat on the chair and started c/o ringing on her ears. BP checked: 84/63. elevated pt's LE and BP checked again: 109/ 57. call light and table placed within reach. nurse informed. Dr. Call in room to see pt. Gait Assessment Gait Gait Assistance Required: Contact Guard Assist Distance (Feet) 10 Able to Maintain Weight Bearing Status Yes During Gait Assistive Devices Assistive Device Gait Belt,Front Wheeled Walker Orthotic/Prosthetic Devices or Brace: No Gait Deviations General Gait Pattern Antalgic,Decreased Stride Length,Decreased Feet Clearance Factors Limiting Gait Function Factors Limiting Gait Function Decreased Activity Tolerance, Decreased Strength,Limited Range of Motion,Pain,Poor Balance,Poor Safety Awareness M5 PT-IP Objective Assessments Start: 02/10/24 09:25 Freq: NEEDED Status: Active Protocol: Document 02/10/24 09:25 MB (Rec: 02/10/24 10:13 MB [id number]) Orientation Orientation/Cognition Level of Alertness Alert Orientation Name,Place,Situation Language Function Ability No Deficits Noted Safety Awareness Understands Safety Issues Memory Description No Deficits Noted Comments PT does not ask all of orientation questions as OT is asking questions when PT steps out to get recliner and pt appears A&O, can defer to OT note for further details Gross Range of Motion Upper Extremity ROM Impairments Defer to OT Lower Extremity ROM Impairments Functional movement in bed and with transfers and gait but increased pain in back with attempted B HS in the bed before getting up, so limited by pain post-op. Abdominal pannus limits hip flexion B in sitting EOB. Strength Lower Extremity Strength Assessment Within Functional Limits Coordination Assessment Gross Coordination Gross Coordination WNL Sensation Assessment Sensation Gross Sensation WNL Comments Sensation Comments Pt reports previous left sciatica symptoms are better though with ankle DF with leg straight in supine, she does feel tension in calf and posterior leg Muscle Tone Muscle Tone WNL Yes M6 PT-IP Treatment Start: 02/10/24 09:25 Freq: NEEDED Status: Active Protocol: Document 02/11/24 09:45 AB (Rec: 02/11/24 11:36 AB [id number]) Physical Therapy Treatment Education Education Provided Safety M7 PT-IP Assessment and Plan Start: 02/10/24 09:25 Freq: NEEDED Status: Active Protocol: Document 02/11/24 09:45 AB (Rec: 02/11/24 11:36 AB [id number]) PT Summary Assessment and Plan Potential Rehabilitation Potential Fair Summary Impairments Pain,ROM,Strength,Balance, Coordination,Sensation,Tone, Cognition,Bed Mobility, Transfers,Gait,Activity Tolerance Assessment Summary pt requiring max A for sit to stand and CGA for ambulation using FWW but unable to tolerate much activity due to orthostatic hypotension with BP: 84/63. d/c plan depending on progress. caregiver training will be conducted when appropriate. will continue to assess. Goals Bed Mobility Goal Independent Transfer Goal Independent,Front Wheeled Walker,Four Wheeled Walker Gait Goal Independent,Front Wheel Walker ,Four Wheel Walker Gait Distance 75 Days to Meet Goals 5 Frequency of Treatment Frequency Of Treatment Twice a Day Other frequency or as tolerated Treatment Plan Physical Therapy Treatment Plan Bed Mobility Training,Transfer Training,Gait Training, Therapeutic Exercise,Balance Retraining,Post Op Education, Discharge Planning,Hot or Cold Pack,Neuromuscular Re-ed, Coordination Retraining,Manual Therapy Precautions Lumbar Precautions Log Roll,No Twisting,Limit Bending,Lifting Restriction of 10 lbs,Gait Belt above Incisional Area Weight Bearing Status Weight Bearing Status Weight Bear as Tolerated Recommendations To Nursing Amount of Assist Needed 1 Person Assist Discharge Recommendations PT Discharge Recommendations Home with 08/02 Assist Available,Home Health,SNF Rehab Other Discharge Recommendations Unsure if pt will need 2WRW, moves well enough that may do fine with her 4WRW Transportation Needs at Discharge Private Vehicle,Wheelchair/ Cabulance
--- NOTE | 2024-02-11 11:01 | PM.PN.1 ---
Exam Vital Signs (past 8 hours): - 02/11/24 06:52 02/11/24 08:00 Temperature 98.5 F Pulse Rate 89 86 Respiratory Rate 22 18 Blood Pressure 101/58 L 104/56 L Pulse Oximetry 92 94 Oxygen Flow Rate 0 Oxygen Delivery Method Room Air,CPAP Oxygen Flow Rate 0 Objective Labs 02/10/24 06:24 [facility] Medical History (Updated 01/31/24 @ 14:29 by Laya Quinteros RN) History of COVID-19 Acid reflux Panic attacks Lumbar post-laminectomy syndrome Microcytic anemia Pelvic floor dysfunction in female Genitourinary syndrome of menopause BMI 38.0-38.9,adult Fibromyalgia Tinnitus Vaginal atrophy Painful menstrual periods (1969) History of recurrent ear infection (1960) Glaucoma (2009) Fatty tumor Plantar warts (2002) Arthritis (2004) Shoulder pain (2008) Lumbar spine pain (2004) Foot pain (2012) Chronic back pain (2004) Suicide attempt (2004) Pneumothorax Hearing loss (1961) Anemia (1986) Chicken pox (1960) Measles (1961) Hayfever Morbid obesity with body mass index (BMI) of 40.0 to 49.9 (08/07/16) Essential hypertension (08/07/16) Gastroesophageal reflux disease without esophagitis (04/03/16) Dorsalgia (06/16/11) Obstructive sleep apnea syndrome (06/16/11) Generalized anxiety disorder (06/16/11) Mixed hyperlipidemia (06/16/11) Attention-deficit hyperactivity disorder, predominantly inattentive type Post traumatic stress disorder (PTSD) Surgical History (Updated 01/31/24 @ 14:19 by Laya Quinteros RN) History of colonoscopy (04/11/18) History of ear surgery History of thumb surgery (2009) History of back surgery (2007) History of carpal tunnel repair (2010) Status post delivery (01/27/90) Status post tonsillectomy and adenoidectomy Family History Father Cancer Hypertension High cholesterol Grandfather Cancer Mental health problem Depression Leukemia Grandmother Mental health problem Alzheimer's dementia Grandfather Diabetes mellitus Hypertension High cholesterol Grandmother Heart disease Social History marital status: number of children: 2 household members: none lives independently: Yes caregiver/support person: No housing: apartment pets and animals: Yes education level: college occupational status: disabled 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 Mix is POD#2 s/p L3-5 TLIF. Patient has well controlled back pain. On exam, her dressing is clean dry intact. Patient is neuro intact on exam with no evidence of DVT in BLE. Patient's abdomen has tenderness to palpation in left lower quadrant. There is no significant pain when no manual pressure is applied. Due to patient's recent pelvic/vaginal/rectal symptoms, feeling of internal hemorrhoids and swollen vagina, general surgery was consulted yesterday. CT of abdomen and pelvis was ordered per Dr. Jones's recommendation. CT shows concerns for uterine tumor/lesion and lesion in the liver concerning for metastatic disease. I spoke to Dr. Jones today about her plan of care. Since her intra-abdominal lesion is concerning for cancer, I think any additional diagnostic procedure such as colonoscopy or biopsy take precedence over possible bacterial seeding of her newly operated lumbar spine from additional invasive procedure. I spoke to patient about the CT findings and possible plans for additional diagnosis and treatment. Dr. Jones will assess patient today and provide additional instructions about her future plan of care regarding her intra-abdominal lesions. We will continue current PT/OT and medical management for her post op lumbar spine. She is doing very well for recovery and has ambulated multiple times in the hallway with assist. Time-Based Coding :: [TOTAL MINUTES] spent with patient and on the chart (including review of chart, obtaining history, exam, reviewing outside data, placing orders, documenting exam and treatment plan, and counseling patient) on [DATE].
--- NOTE | 2024-02-11 13:15 | PT.IPTN ---
Current Diagnoses Spondylolisthesis, lumbar region (02/09/24) Postlaminectomy syndrome, not elsewhere classified (02/09/24) Surgery Performed Operation Date: 02/09/24 11:15 Actual Procedures p L3-4, L4-5 TRANSFORAMINAL LUMBAR INTERBODY FUSION WITH POSTERIOR INSTRUMENTATION WITH ROBOT - Boyd Call MD Operation Date: 02/12/24 09:30 <No data on this case meets the specified criteria> Physical Therapy Treatment Note M2 PT-IP Current Condition Start: 02/10/24 09:25 Freq: NEEDED Status: Active Protocol: Document 02/10/24 09:25 MB (Rec: 02/10/24 10:13 MB [id number]) Physical Therapy Current Condition Current Condition Evaluation Date 02/10/24 Treatment Diagnosis Lumbar surgery M3 PT-IP Subjective Start: 02/10/24 09:25 Freq: NEEDED Status: Active Protocol: Document 02/11/24 13:15 AB (Rec: 02/11/24 15:59 AB [id number]) Subjective Physical Therapy Visit Type Type Treatment Note Visit Start Time 13:15 Visit Stop Time 14:15 Number of STACK CLERK Visits 0 Physical Therapy Visit Comments Patient Comments requesting to use the toilet Therapy Pain Assessment Pain When Pain Assessed At Rest Pain Present Pain Present Pain Reported Location back Scale Used pain scale not stated Pain Management Techniques Apply Cold,Distraction, Modification of Treatment,Re- positioning,Timing of Activity with Medications M4 PT-IP Mobility and Gait Start: 02/10/24 09:25 Freq: NEEDED Status: Active Protocol: Document 02/11/24 13:15 AB (Rec: 02/11/24 15:59 AB [id number]) PT-Bed Mobility Assessment Rolling Type of Rolling Log Rolling Level of Assist Standby Assistance Supine to Sit Supine to Sit Standby Assistance,Minimal Assistance Sit to Supine Sit to Supine Standby Assistance PT-Transfer Assessment Sit to and From Stand Sit to and from Stand Contact Guard Assistance,1 Person Assistance,Use of Upper Extremities Equipment Transfer Assistive Device Gait Belt,Front Wheeled Walker Orthotic/Prosthetic Devices or Brace: No Transfers Transfer Destination Bed,Toilet Transfer Technique ambulated Transfer Ability Level of Assist Contact Guard Assistance,1 Person Assistance,Use of Upper Extremities Comments Mobility Comments pt sitting on the chair and daughter in room. pt requesting to use the toilet. BP sittin/63. completed sit to stand CGA and cues for techniques. no c/o dizziness . ambulated to the toilet using FWW CGA. min A for controlled descent using grab bar to assist. completed sit to stand from the toilet CGA using grab bar and ambulated to the chair using FWW CGA. BP checked: 118/62. caregiver training conducted. educated caregiver on pt's back precautions. educated caregiver on how to use safety belt and how to assist pt. daughter was able to put safety belt on. assisted pt with ambulation in room ~ 35 ft using FWW CGA. pt sat on the EOB. completed sit to supine min A for LE elevation and cues provided by PT for techniques. educated pt and daughter regarding log roll bed mobility techniques. pt completed supine to sit SBA. completed sit<>supine again SBA without cues. pt completed step transfer to chair using FWW CGA with daughter assisting. positioned pt on the chair. call light and table placed within reach. BP checked: 102/64. pt and daughter without further concerns. informed pt and daughter regarding continued use of FWW vs 4WW for safety since pt still uses a lot of UE on FWW for support and also that the L knee tends to give out. pt and daughter agreed. Gait Assessment Gait Gait Assistance Required: Contact Guard Assist Distance (Feet) 35 Able to Maintain Weight Bearing Status Yes During Gait Assistive Devices Assistive Device Gait Belt,Front Wheeled Walker Orthotic/Prosthetic Devices or Brace: No Gait Deviations General Gait Pattern Decreased Stride Length, Decreased Feet Clearance,Step- to Gait Factors Limiting Gait Function Factors Limiting Gait Function Decreased Activity Tolerance, Decreased Strength,Difficulty Following Directions,Limited Range of Motion,Pain,Poor Balance,Poor Safety Awareness M5 PT-IP Objective Assessments Start: 02/10/24 09:25 Freq: NEEDED Status: Active Protocol: Document 02/10/24 09:25 MB (Rec: 02/10/24 10:13 MB [id number]) Orientation Orientation/Cognition Level of Alertness Alert Orientation Name,Place,Situation Language Function Ability No Deficits Noted Safety Awareness Understands Safety Issues Memory Description No Deficits Noted Comments PT does not ask all of orientation questions as OT is asking questions when PT steps out to get recliner and pt appears A&O, can defer to OT note for further details Gross Range of Motion Upper Extremity ROM Impairments Defer to OT Lower Extremity ROM Impairments Functional movement in bed and with transfers and gait but increased pain in back with attempted B HS in the bed before getting up, so limited by pain post-op. Abdominal pannus limits hip flexion B in sitting EOB. Strength Lower Extremity Strength Assessment Within Functional Limits Coordination Assessment Gross Coordination Gross Coordination WNL Sensation Assessment Sensation Gross Sensation WNL Comments Sensation Comments Pt reports previous left sciatica symptoms are better though with ankle DF with leg straight in supine, she does feel tension in calf and posterior leg Muscle Tone Muscle Tone WNL Yes M6 PT-IP Treatment Start: 02/10/24 09:25 Freq: NEEDED Status: Active Protocol: Document 02/11/24 13:15 AB (Rec: 02/11/24 15:59 AB [id number]) Physical Therapy Treatment Education Education Provided Precautions,Safety M7 PT-IP Assessment and Plan Start: 02/10/24 09:25 Freq: NEEDED Status: Active Protocol: Document 02/11/24 13:15 AB (Rec: 02/11/24 15:59 AB [id number]) PT Summary Assessment and Plan Potential Rehabilitation Potential Fair Summary Impairments Pain,ROM,Strength,Balance, Coordination,Sensation,Tone, Cognition,Bed Mobility, Transfers,Gait,Activity Tolerance Progress Towards Goals Slow Progress due to Medical Issues,Slow Progress due to Activity Tolerance,Slow Progress - Other Assessment Summary pt requiring CGA for mobilty using FWW. caregiver training conducted and daughter was able to assist pt with mobility. pt continues to be slightly orthostatic with BP decreased to 102/64 but without c/o dizziness/ lightheadedness. nurse is aware. will continue to assess progress. Goals Bed Mobility Goal Independent Transfer Goal Independent,Front Wheeled Walker,Four Wheeled Walker Gait Goal Independent,Front Wheel Walker ,Four Wheel Walker Gait Distance 75 Days to Meet Goals 5 Frequency of Treatment Frequency Of Treatment Twice a Day Other frequency or as tolerated Treatment Plan Physical Therapy Treatment Plan Bed Mobility Training,Transfer Training,Gait Training, Therapeutic Exercise,Balance Retraining,Post Op Education, Discharge Planning,Hot or Cold Pack,Neuromuscular Re-ed, Coordination Retraining,Manual Therapy Precautions Lumbar Precautions Log Roll,No Twisting,Limit Bending,Lifting Restriction of 10 lbs,Gait Belt above Incisional Area Recommendations To Nursing Amount of Assist Needed 1 Person Assist Discharge Recommendations PT Discharge Recommendations Home with 08/02 Assist Available,Home Health Transportation Needs at Discharge Private Vehicle
[2024-02-11 13:33] LABS: Carcinoembryonic Antigen 0.3 ng/mL (0.1-3.0)
[2024-02-11 13:57] VITALS: BP 110/63; PULSE 98; RESP 18; TEMP 36.8; O2SAT 98
--- NOTE | 2024-02-11 14:48 | CM.DPC ---
DCP Continued Reviewed EMR and team rounds for pt?s medical status. Per rounds, there was a incidental find of uterine tumor/lesions in the liver concerning for metastatic disease. Surgery is consulted and more diagnostic imaging is being ordered for pt as plan of care evolves. Per RN, plan of care still evolving and family is still being notified of new diagnosis. DCP noted with RN that emotional support/resources can be available to pt and family if necessary; CM team monitoring care plan. Plan: Anticipating discharge with daughter to transport when medically stable, plan of care evolving with new concerns for metastatic disease. CM Team will continue to follow for coordination of discharge plans. TERRY Diaz
[2024-02-11] MEDS: CELECOXIB 200 MG CAPSULE PO ×2 (15:40→20:31)
[2024-02-11] MEDS: ALPRAZolam 0.25 MG TABLET 0.5 MG PO (15:40)
--- NOTE | 2024-02-11 17:34 | PM.CN ---
History of Present Illness Consult details Date Patient Seen: 02/11/24 Time Patient Seen: 14:30 Chief complaint: INPT Reason for consult: Abd pain Requesting provider: Boyd Call Narrative: Patient admitted after surgery on her back. Continued to have pelvic pain and pain with sitting. Pain is left sided predominantly, has been increasing over 4-6 weeks. Noted by PCP to be anemic and recommended colonoscopy. And there was question if left inguinal hernia was the cause and due to her size just could not be felt. Significant weight loss over last several months due to decreased appetite. And new combination of pain and numbness of the pelvic area and pubus. Can no longer tell when she has to urinate or move her bowels. CT scan of abdomen and pelvis has revealed viraj met to sacrum and liver. The left sided mass is possibly and cutaneous met and the endometrium of the uteterus is abnormal. Meds Home Medications and Allergies Home Medications Medication Instructions Recorded Confirmed Type Disabled Parking #1 ea 11/28/21 02/10/24 Rx ResMed AirSense 10 05/20/22 02/10/24 History docusate sodium 100 mg capsule 100 mg PO BID #180 caps 11/13/22 02/09/24 Rx bupropion HCl 300 mg 24 hr tablet, 300 mg PO Q DAY #90 tabs 06/23/23 02/09/24 Rx extended release (Wellbutrin XL) trazodone 50 mg tablet 100 mg (2 x 50 mg) PO BEDTIME #180 06/23/23 02/09/24 Rx tabs hydrochlorothiazide 25 mg tablet 25 mg PO DAILY #90 tabs 06/24/23 02/09/24 Rx potassium chloride 20 mEq 20 meq PO DAILY #90 tabs 11/12/23 02/09/24 Rx tablet,extended release estradiol 0.01% (0.1 mg/gram) 1 appful vaginal DAILY #42.5 grams 11/24/23 02/09/24 Rx vaginal cream (Estrace) acetaminophen 650 mg 650 mg PO QID 01/31/24 02/09/24 History tablet,extended release omeprazole 40 mg capsule,delayed 40 mg PO BID 01/31/24 02/09/24 History release ramelteon 8 mg tablet (Rozerem) 8 mg PO HS Sleep 01/31/24 01/31/24 History hydrocodone 10 mg-acetaminophen 1 - 2 tab PO TID PRN pain #60 tabs 02/07/24 02/09/24 Rx 325 mg tablet hydrocortisone 1 % topical cream 1 applic topical QID PRN 02/09/24 02/09/24 History (Preparation H Hydrocortisone) Hemorrhoids methylphenidate HCl 10 mg biphasic 10 mg PO QAM 02/09/24 02/09/24 History 30-70 capsule,extended release (Metadate CD) mupirocin 2 % topical ointment 1 applic topical BID 02/09/24 02/10/24 History Allergies Allergy/AdvReac Type Severity Reaction Status Date / Time penicillin G Allergy Mild RASH Verified 02/09/24 10:04 doxycycline AdvReac Mild N/V Verified 02/09/24 10:04 Sulfa (Sulfonamide AdvReac Mild ACT LIKE Verified 02/09/24 10:04 Antibiotics) I'M DRUNK/SICK gabapentin [GABAPENTIN] AdvReac Unknown Drowsy Verified 02/09/24 10:04 eggplant AdvReac Mild stinging Uncoded 02/03/24 10:49 needle feeling on tongue Review of Systems Review of Systems ROS: Yes All systems reviewed with the patient and are negative except as otherwise documented Exam Vital Signs (past 8 hours): - 02/11/24 13:57 Temperature 98.2 F Pulse Rate 98 H Respiratory Rate 18 Blood Pressure 110/63 Pulse Oximetry 98 Oxygen Delivery Method Room Air,CPAP Oxygen Flow Rate 0 Const General: cooperative and comfortable Nutritional Appearance: overweight Orientation: alert, awake and oriented x3 HENMT Head: normocephalic and atraumatic Ears: hearing grossly normal bilaterally Face and sinus: normal facial exam Eyes Sclera: sclerae normal Neck Neck: trachea midline Resp Effort & Inspection: normal respiratory effort and able to speak in complete sentences Cardio Rate: tachycardic Rhythm: regular rhythm GI Inspection: obesity and other (palpable subcutaneous nodule left lateral abdomen) Palpation: soft and tender Back/Spine/Pelvis Sacrum: tenderness Other: Dressing over lumbar spine, dry and intact Skin General: atrophy Neuro Cognition: normal cognition Psych Mental Status: mental status grossly normal Speech and Movement: speech clear Affect: anxious affect Attitude: cooperative Judgment: judgment good Objective Labs 02/10/24 06:24 Labs: Laboratory Results - last 24 hr 02/10/24 06:24 Carcinoembryonic Ag 0.3 PFSH Medical History History of COVID-19 Acid reflux Panic attacks Lumbar post-laminectomy syndrome Microcytic anemia Pelvic floor dysfunction in female Genitourinary syndrome of menopause BMI 38.0-38.9,adult Fibromyalgia Tinnitus Vaginal atrophy Painful menstrual periods (1969) History of recurrent ear infection (1960) Glaucoma (2009) Fatty tumor Plantar warts (2002) Arthritis (2004) Shoulder pain (2008) Lumbar spine pain (2004) Foot pain (2012) Chronic back pain (2004) Suicide attempt (2004) Pneumothorax Hearing loss (1961) Anemia (1986) Chicken pox (1960) Measles (1961) Hayfever Morbid obesity with body mass index (BMI) of 40.0 to 49.9 (08/07/16) Essential hypertension (08/07/16) Gastroesophageal reflux disease without esophagitis (04/03/16) Dorsalgia (06/16/11) Obstructive sleep apnea syndrome (06/16/11) Generalized anxiety disorder (06/16/11) Mixed hyperlipidemia (06/16/11) Attention-deficit hyperactivity disorder, predominantly inattentive type Post traumatic stress disorder (PTSD) Surgical History History of colonoscopy (04/11/18) History of ear surgery History of thumb surgery (2009) History of back surgery (2007) History of carpal tunnel repair (2010) Status post delivery (01/27/90) Status post tonsillectomy and adenoidectomy Family History Father Cancer Hypertension High cholesterol Grandfather Cancer Mental health problem Depression Leukemia Grandmother Mental health problem Alzheimer's dementia Grandfather Diabetes mellitus Hypertension High cholesterol Grandmother Heart disease Social History marital status: number of children: 2 household members: none lives independently: Yes caregiver/support person: No housing: apartment pets and animals: Yes education level: college occupational status: disabled 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 CEA and CA 19-9. Biopsy of subcutaneous nodule, colonoscopy. Oncology appointment once pathology is conclusive. Will need IR liver biopsy at some point Time-Based Coding :: 50 minutes spent with patient and on the chart (including review of chart, obtaining history, exam, reviewing outside data, placing orders, documenting exam and treatment plan, and counseling patient) on 02/11/2024.
[2024-02-11] MEDS: PEG3350/SOD SULF,BICARB,CL/KCL 4,000 ML SOLUTION 4000 ML PO (18:54)
[2024-02-11 19:00] VITALS: BP 104/64; PULSE 84; RESP 18; TEMP 36.2; O2SAT 96
[2024-02-11] MEDS: SENNOSIDES 8.6 MG TABLET 17.2 MG PO (20:31)
[2024-02-11] MEDS: DOCUSATE 100 MG CAPSULE PO (20:32)
[2024-02-11] MEDS: TRAZODONE 50 MG TABLET 100 MG PO (20:32)
[2024-02-12] VITALS (14 sets, daily range): BP systolic 85–137; BP diastolic 53–83; PULSE 76–96; RESP 12–18; TEMP 36.4–36.9; O2SAT 92–98
--- NOTE | 2024-02-12 00:53 | PC.NURSE ---
3 IV start attempts made, but unsuccessfull. 2x2 gauze placed with plastic tape. Coordinator aware.
--- NOTE | 2024-02-12 01:07 | PC.NURSE ---
IV in right AC failed, unable to get another IV in with multiple attempts. Notified Dr. Jones and she said ok to keep NPO, just like she would be at home.
[2024-02-12] MEDS: OXYCODONE IR 5 MG TABLET PO ×3 (01:13→13:46)
[2024-02-12] MEDS: ALPRAZolam 0.25 MG TABLET 0.5 MG PO ×2 (01:13→22:16)
[2024-02-12] MEDS: OXYCODONE IR 10 MG TABLET PO ×3 (04:37→21:11)
[2024-02-12 07:36] LABS: Cancer (Carbohydrate) Ag 19-9 4 U/mL (0-35)
--- NOTE | 2024-02-12 08:56 | P.PN_ITS ---
Subjective Subjective Interval history: Karlie is a 63 year old female who is POD#3 s/p L3-4, L4-5 Postero-lateral and posterior interbody fusion by Dr. Call. Patient states she is doing well overall, her pain is moderate but well controlled w/ her current pain regiment. Current pain level is 5/10. She states she feels better when she is standing or walking than lying down. She states she feels very fatigued, has had a difficult time sleeping. She has continued to work w/ PT and seems to be progressing well. She had some episodes of low blood pressure post-op which has been improving. She is feeling less light headed when standing now. Most recent H&H 8.1 and 26.1. She did have some pre-op anemia as well, 01/11/2024 H&H was 9.4 and 30.0. She lives at home alone, her daughter flew in to be with her post-op but will be leaving on February 18 to return home to [place]. She does not have much other support in the area, does have some friend who can offer a small amount of help. She is anxious about not having support once he daughter leaves. She has no steps in her home. She does have a walker already. Urinating well w/o issue. She does have a history of LLQ pain, urinary changes, numbness and pain in the pelvis for several months now. She reported intermitted LLQ pain worse w/ lying on her left side and worse w/ palpation. She states she can feel a lump when she stands up. CT scan ordered yesterday revealed several intra-abdominal lesions. General surgery was consulted and she is currently being worked up for metastatic disease, she is scheduled to have a tissue biopsy and colonoscopy today w/ Dr. Jones. She reports slowly increasing L calf pain and tightness. She admits her SCDs have not been worn since yesterday. She is concerned for possible DVT. Denies fever, chills, chest pain, SOB, nausea, vomiting. Exam Vital Signs (past 8 hours): - 02/12/24 01:00 02/12/24 08:00 Temperature 98.4 F 97.7 F Pulse Rate 84 76 Respiratory Rate 18 14 Blood Pressure 105/67 117/61 Pulse Oximetry 94 98 Oxygen Flow Rate 0 0 Oxygen Delivery Method Room Air,CPAP Oxygen Flow Rate 0 Narrative Exam Narrative: Patient lying comfortably in bedside chair during our interview today. No acute distress. AOx3. 5/5 strength with R DF, PF, EHL. 5/5 strength w/ L PF. 4/5 L DF, EHL. Gross sensation intact throughout bilateral lower extremities. Calves soft and compressible bilaterally. SCDs are not on. She does have some tenderness w/ palpation of her left calf. Post-surgical dressing clean, dry and intact over the lumbar spine. GI Other: Point tenderness to deep palpation at the LLQ, there is a palpable nodule on the left side of the abdomen. Objective Labs 02/10/24 06:24 Labs: Laboratory Results - last 24 hr 02/10/24 06:24 Carcinoembryonic Ag 0.3 CA 19-9 Antigen 4 [facility] Medical History History of COVID-19 Acid reflux Panic attacks Lumbar post-laminectomy syndrome Microcytic anemia Pelvic floor dysfunction in female Genitourinary syndrome of menopause BMI 38.0-38.9,adult Fibromyalgia Tinnitus Vaginal atrophy Painful menstrual periods (1969) History of recurrent ear infection (1960) Glaucoma (2009) Fatty tumor Plantar warts (2002) Arthritis (2004) Shoulder pain (2008) Lumbar spine pain (2004) Foot pain (2012) Chronic back pain (2004) Suicide attempt (2004) Pneumothorax Hearing loss (1961) Anemia (1986) Chicken pox (1960) Measles (1961) Hayfever Morbid obesity with body mass index (BMI) of 40.0 to 49.9 (08/07/16) Essential hypertension (08/07/16) Gastroesophageal reflux disease without esophagitis (04/03/16) Dorsalgia (06/16/11) Obstructive sleep apnea syndrome (06/16/11) Generalized anxiety disorder (06/16/11) Mixed hyperlipidemia (06/16/11) Attention-deficit hyperactivity disorder, predominantly inattentive type Post traumatic stress disorder (PTSD) Surgical History History of colonoscopy (04/11/18) History of ear surgery History of thumb surgery (2009) History of back surgery (2007) History of carpal tunnel repair (2010) Status post delivery (01/27/90) Status post tonsillectomy and adenoidectomy Family History Father Cancer Hypertension High cholesterol Grandfather Cancer Mental health problem Depression Leukemia Grandmother Mental health problem Alzheimer's dementia Grandfather Diabetes mellitus Hypertension High cholesterol Grandmother Heart disease Social History marital status: number of children: 2 household members: none lives independently: Yes caregiver/support person: No housing: apartment pets and animals: Yes education level: college occupational status: disabled 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: [employer] travel history: recent leisure activities: exercise, art and other Smoking Status: Former smoker Tobacco: How many years used: 0 quit status: quit date established second hand exposure: Yes alcohol intake: current substance use type: does not use Assessment & Plan Post-op Postoperative Procedures: Procedures Operation Date: 02/09/24 11:15 Actual Procedure Side Surgeon p L3-4, L4-5 TRANSFORAMINAL LUMBAR INTERBODY FUSION WITH POSTERIOR INSTRUMENTATION WITH ROBOT Boyd Call MD Operation Date: 02/12/24 09:30 <No data on this case meets the specified criteria> Postoperative plan narrative: 1) Discharge disposition pending metastatic disease workup with general surgery. 2) Continue multimodal pain management. 3) mechanical DVT prophylaxis. SCDs should be on and functioning at all times when patient is in bed. We will order ultrasound of left lower extremity to rule DVT. 4) Continue to work with physical therapy to improve mobility 5) Keep dressing intact, clean, dry until 2 week postop appointment. No soaking the incision site in pools or tubs. No topical ointments or creams to the incision site. 6) Follow up at [facility] orth[facility]ics in 2 weeks for a postop appointment and wound check. All patient's questions were answered, she demonstrates understanding and is in agreement with the plan. Call our office if any questions or concerns arise.
[2024-02-12] MEDS: PANTOPRAZOLE DR 40 MG TABLET PO ×2 (08:58→21:11)
--- NOTE | 2024-02-12 09:16 | PT-IP ANOTE ---
Pt is having a colonoscopy this morning, PT will check back with pt later.
--- NOTE | 2024-02-12 09:28 | PM.PREOP ---
Pre-operative Note Interval Note History & Physical reviewed/Exam performed by Physician: Yes Changes to H&P: Yes H&P completed within 30 days and has changed as indicated here:: Work up for metastatic cancer will be modified to colonoscopy and EUA only today. Local anesthetic contra indicated due to Apixaban use during recent surgery
[2024-02-12] MEDS: LACTATED RINGERS 1,000 ML 42 ML IV (09:39)
[2024-02-12] MEDS: CEFAZOLIN 2 GM/100 ML PREMIX 100 ML IV (10:00)
--- NOTE | 2024-02-12 10:19 | PM.OP.COLON ---
Operative Date/Time/Diagnoses Date of procedure: 02/12/24 Time of procedure: 10:19 Pre-op diagnosis: Anemia, abnormal abdominal CT Post-op diagnosis: same Procedure & Clinicians Study performed: Colonoscopy with anesthesia and digital vaginal exam Same procedure as scheduled: Yes Indications: Anemia, abnormal abdominal CT Surgeon: Dorothy Jones Procedure Notes Procedure in detail: Preop diagnosis: Anemia, abnormal abdominal CT Postop diagnosis: Same Operative procedure: Colonoscopy with anesthesia, vaginal exam under anesthesia digital only Surgeon: Sarah Jones MD Anesthetic: Per anesthesia Findings: Mild, moderate diverticulosis of the descending colon. No polyps or masses identified. Vaginal exam demonstrated hardened cervix and firm uterus, not fixed. Visualization not attempted Procedure: Patient placed in lateral position. Rectal exam performed showing normal tone no masses. Colonoscope inserted into the rectum and advanced to ileocecal valve with minimal difficulty. Insufflation extraction of the scope including a retroflex in the rectum had the above findings. During the anesthetic I also use lubricant to manually palpate the cervix and uterus as described above in findings. Impression: Mild diverticulosis of the descending colon, questionable mass of the cervix/uterus Plan: Repeat colonoscopy in 10 years unless otherwise indicated by change in clinical condition. We will proceed with workup regarding vaginal findings. Findings: divertiulosis Specimen(s): none sent Complications: none Post-procedure Recommendations: Colonoscopy in 10 years Follow up: as needed Disposition: PACU
--- NOTE | 2024-02-12 10:56 | CM.DPNOTE ---
Addendum entered by URSULA Chester 02/12/24 15:50: Per RN, surgeon ordered CT for lungs and ultrasound, results pending. Surgeon wants biopsy of uterus before pt discharges home. unlikely to dc Wednesday, maybe Wednesday. SL Original Note: DCP Note HOSPICE AIDE reviewed EMR. Pt is POD3 of lumbar surgery. Per RN report, pt in colonoscopy this morning with Dr. Jones. Per Robert note, found no polyps or masses. However, found mild diverticulosis in the colon and the vaginal exam found hardened cervix and firm uterus. Per most recent PT note, rec home with assistance vs HH. f/u for HH need with post colonoscopy PT. Plan: Anticipating discharge with daughter to transport when medically stable, plan of care evolving with concerns for results from colonoscopy. CM Team will continue to follow for coordination of discharge plans. f/u for HH need, likely home with family support. URSULA Chester
--- NOTE | 2024-02-12 10:57 | DI.CT.S_ITS ---
PROCEDURE: CT CHEST W CON INDICATIONS: Metastatic workup. Stat interpretation requested TECHNIQUE: After the administration of intravenous contrast, 5 mm thick sections acquired from the pulmonary apices to the posterior costophrenic angles. 1 mm axial lung, 5 mm thick coronal and sagittal reformats and 7 mm axial MIP were acquired. For radiation dose reduction, the following was used: automated exposure control, adjustment of mA and/or kV according to patient size. COMPARISON: [facility], CT, CT ABDOMEN PELVIS W CON, 02/10/2024, 17:50. FINDINGS: Image quality: Diagnostic. Lower Neck: No enlarged lymph nodes. Thyroid: No thyroid nodules which require sonographic follow up, per consensus guidelines. Axillae: No enlarged lymph nodes. Chest Wall: Unremarkable. Bones: Unremarkable. Lungs and Pleura: Multiple metastatic nodules and scattered throughout both lungs. Largest is in the right lung apex measuring 7 mm additional smaller lesions noted bilaterally. Heart: Heart size is normal. No pericardial effusion. Thoracic Vessels: The aorta and pulmonary arteries demonstrate normal size. Mediastinum and Maria Esther: No enlarged lymph nodes. Esophagus: No wall thickening. No hiatal hernia. Upper Abdomen: Hepatic metastatic disease as noted on concurrent CT abdomen and pelvis IMPRESSION: Scattered metastatic bilateral pulmonary nodules present. Largest is in the right lung apex measuring 7 mm. No adenopathy. No osseous lesions.6 Previously described hepatic metastatic disease again noted. Approved by: Jarocho Borrego M.D. on 02/12/2024 at 16:32
--- NOTE | 2024-02-12 11:20 | SUR.PHASEI ---
Pt transfered to room 211 in bed by this RN. SBAR report to Cher WAGNER and Ale RN. Pt repositioned. C&DB done. Placed being on CPAP by Ale WAGNER as pt O2 sats drop to 87-88% on RA when she dozes off. Abd soft. Call light in reach
--- NOTE | 2024-02-12 11:22 | PC.NURSE ---
Pt returned from PACU at 1115, A&Ox4, VSS on RA but PACU nurse reports desaturation when sleeping, no c/o pain but wants to rest. CPAP attached per pt request, no other needs at this time.
[2024-02-12] MEDS: CYCLOBENZAPRINE 10 MG TABLET 5 MG PO ×2 (11:49→22:20)
[2024-02-12] MEDS: hydroCHLOROthiazide 25 MG TABLET PO (13:45)
[2024-02-12] MEDS: buPROPion XL 150 MG TAB 300 MG PO (13:45)
[2024-02-12] MEDS: POTASSIUM CHLORIDE 20 MEQ TAB PO (13:46)
[2024-02-12] MEDS: CELECOXIB 200 MG CAPSULE PO ×2 (13:46→21:11)
[2024-02-12] MEDS: SODIUM CHLORIDE 0.9% FLUSH 10 ML IV ×2 (13:46→21:13)
[2024-02-12] MEDS: ACETAMINOPHEN 325 MG TABLET 650 MG PO ×3 (13:46→21:11)
[2024-02-12 14:06] LABS: BUN Creatinine Ratio 13.3 (6-22); Blood Urea Nitrogen 8 mg/dL (7-17); Calcium 8.2 mg/dL (8.4-10.2); Carbon Dioxide 30 mmol/L (22-32); Chloride 103 mmol/L (98-107); Estimated Glomerular Filt Rate > 60 mL/min (>60); Glucose 120 mg/dL (80-110); HEMOLYSIS < 15 (0-50); Potassium 3.3 mmol/L (3.4-5.1); Sodium 138 mmol/L (137-145)
[2024-02-12] MEDS: POTASSIUM CHLORIDE 20 MEQ TAB 40 MEQ PO ×2 (16:45→21:10)
[2024-02-12] MEDS: TRAZODONE 50 MG TABLET 100 MG PO (21:11)
[2024-02-12] MEDS: DOCUSATE 100 MG CAPSULE PO (21:11)
[2024-02-13] MEDS: OXYCODONE IR 10 MG TABLET PO ×5 (00:40→20:08)
[2024-02-13 08:00] VITALS: BP 124/69; PULSE 80; RESP 16; TEMP 36.2; O2SAT 93
--- NOTE | 2024-02-13 09:18 | PM.PNPO.1 ---
Subjective Subjective Date Patient Seen: 02/13/24 Time Patient Seen: 09:18 Interval history: Karlie is a 63 year old female who is POD#4 s/p L3-4, L4-5 Postero-lateral and posterior interbody fusion by Dr. Call. Prior to surgery the patient had back pain and severe left lower extremity radiculopathy cramping and spasming down her left leg to her ankle. She is doing okay this morning. Fatigued. States still having cramping and spasming in the left leg although less than what she experienced preoperative. States she feels the calf to the gastroc is ?tight?. Reports prior to surgery she did not get relief with the gabapentin. She has not tried Lyrica. Medical history significant for anemia and cluster of hypotension. During this workup she was found to have intra-abdominal lesions. She had a colonoscopy yesterday and there are plans for uterine or vaginal biopsy concern for metastatic disease. General surgery has been consulted. SCDs for DVT prophylaxis. She lives at home alone, her daughter flew in to be with her post-op but will be leaving on February 18 to return home to [place]. She does not have much other support in the area, does have some friend who can offer a small amount of help. She is anxious about not having support once he daughter leaves. She has no steps in her home. She does have a walker already. Urinating well w/o issue. Denies fever, chills, chest pain, SOB, nausea, vomiting. Exam Vital Signs (past 8 hours): Oxygen Delivery Method Room Air Oxygen Flow Rate 0 Narrative Exam Narrative: Sitting in bedside chair eating breakfast. No acute distress Bilateral lower extremities demonstrates intact dorsiflexion plantar flexion. Bilateral calves are soft, No erythema. Compartments compressible. Demonstrates knee flexion and extension. States feels tightness behind her knee into her calf with knee extension and ankle dorsiflexion. Objective Labs 02/10/24 06:24 02/12/24 13:40 Labs: Laboratory Results - last 24 hr 02/12/24 13:40 Sodium 138 Potassium 3.3 L Chloride 103 Carbon Dioxide 30 BUN 8 Creatinine 0.60 Estimated GFR > 60 BUN/Creatinine Ratio 13.3 Glucose 120 H Calcium 8.2 L PFSH Medical History History of COVID-19 Acid reflux Panic attacks Lumbar post-laminectomy syndrome Microcytic anemia Pelvic floor dysfunction in female Genitourinary syndrome of menopause BMI 38.0-38.9,adult Fibromyalgia Tinnitus Vaginal atrophy Painful menstrual periods (1969) History of recurrent ear infection (1960) Glaucoma (2009) Fatty tumor Plantar warts (2002) Arthritis (2004) Shoulder pain (2008) Lumbar spine pain (2004) Foot pain (2012) Chronic back pain (2004) Suicide attempt (2004) Pneumothorax Hearing loss (1961) Anemia (1986) Chicken pox (1960) Measles (1961) Hayfever Morbid obesity with body mass index (BMI) of 40.0 to 49.9 (08/07/16) Essential hypertension (08/07/16) Gastroesophageal reflux disease without esophagitis (04/03/16) Dorsalgia (06/16/11) Obstructive sleep apnea syndrome (06/16/11) Generalized anxiety disorder (06/16/11) Mixed hyperlipidemia (06/16/11) Attention-deficit hyperactivity disorder, predominantly inattentive type Post traumatic stress disorder (PTSD) Surgical History History of colonoscopy (04/11/18) History of ear surgery History of thumb surgery (2009) History of back surgery (2007) History of carpal tunnel repair (2010) Status post delivery (01/27/90) Status post tonsillectomy and adenoidectomy Family History Father Cancer Hypertension High cholesterol Grandfather Cancer Mental health problem Depression Leukemia Grandmother Mental health problem Alzheimer's dementia Grandfather Diabetes mellitus Hypertension High cholesterol Grandmother Heart disease Social History marital status: number of children: 2 household members: none lives independently: Yes caregiver/support person: No housing: apartment pets and animals: Yes education level: college occupational status: disabled 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: Zoroastrian travel history: recent leisure activities: exercise, art and other Smoking Status: Former smoker Tobacco: How many years used: 0 quit status: quit date established second hand exposure: Yes alcohol intake: current substance use type: does not use Assessment & Plan Post-op Postoperative Procedures: Procedures Operation Date: 02/09/24 11:15 Actual Procedure Side Surgeon p L3-4, L4-5 TRANSFORAMINAL LUMBAR INTERBODY FUSION WITH POSTERIOR INSTRUMENTATION WITH ROBOT Boyd Call MD Operation Date: 02/12/24 09:30 Actual Procedure Side Surgeon p Colonoscopy AND VAGINAL EXAM Droothy Jones MD Postoperative day: 4 Postoperative status: anemia Postoperative status narrative: Postoperative plan narrative: 1) Discharge disposition pending metastatic disease workup with general surgery. 2) Continue multimodal pain management. We will consider trial of Lyrica. Gabapentin has not been effective in the past. 3) mechanical DVT prophylaxis. SCDs should be on and functioning at all times when patient is in bed. Bilateral calves are soft and compressible. I suspect her left lower extremity pain is residual radiculopathy from nerve irritation. Discussed this can certainly take time to resolve after spine surgery. Symptoms are similar but less than her preoperative radicular symptoms 4) Continue to work with physical therapy to improve mobility 5) Keep dressing intact, clean, dry until 2 week postop appointment. No soaking the incision site in pools or tubs. No topical ointments or creams to the incision site. 6) Follow up at [facility] in 2 weeks for a postop appointment and wound check. Postoperative plan: routine post-op care Time Spent With Patient Time with patient: less than 15 minutes Quality VTE Deep Vein Thrombosis/Pulmonary Embolism Present on Admission: No
[2024-02-13] MEDS: hydroCHLOROthiazide 25 MG TABLET PO (09:44)
[2024-02-13] MEDS: POTASSIUM CHLORIDE 20 MEQ TAB PO (09:44)
[2024-02-13] MEDS: CELECOXIB 200 MG CAPSULE PO ×2 (09:44→20:07)
[2024-02-13] MEDS: ACETAMINOPHEN 325 MG TABLET 650 MG PO ×4 (09:44→20:08)
[2024-02-13] MEDS: PREGABALIN 75 MG CAPSULE PO ×2 (09:44→20:07)
[2024-02-13] MEDS: ALPRAZolam 0.25 MG TABLET 0.5 MG PO ×2 (09:45→22:52)
[2024-02-13] MEDS: PANTOPRAZOLE DR 40 MG TABLET PO ×2 (09:45→20:08)
[2024-02-13] MEDS: buPROPion XL 150 MG TAB 300 MG PO (09:45)
[2024-02-13] MEDS: SODIUM CHLORIDE 0.9% FLUSH 10 ML IV ×2 (09:46→20:17)
[2024-02-13] MEDS: DOCUSATE 100 MG CAPSULE PO ×2 (09:47→20:08)
--- NOTE | 2024-02-13 10:00 | DI.US.S_ITS ---
PROCEDURE: US PERIPH VENOUS LOW EXTREM LT INDICATIONS: Left calf pain post-operativley TECHNIQUE: Real-time imaging, as well as color and pulse Doppler interrogation, were performed of the lower extremity deep veins from the inguinal ligament to the popliteal fossa, with documentation of the visualized calf veins. COMPARISON: None. FINDINGS: The common femoral, femoral, popliteal, and the visualized calf veins are normally compressible, and free of intraluminal thrombus. Color and pulse Doppler demonstrate normal phasic intraluminal flow. There is normal augmentation response to distal compression maneuver. IMPRESSION: No findings of lower extremity deep venous thrombosis. Approved by: Jarocho Borrego M.D. on 02/13/2024 at 11:51
--- NOTE | 2024-02-13 10:00 | DI.US.S_ITS ---
PROCEDURE: US PELVIC COMPLETE INDICATIONS: abnormal uterus on CT TECHNIQUE: Real-time scanning was performed of the pelvic organs, with image documentation. Additional endovaginal scanning was necessary due to incomplete visualization of the adnexal and endometrial structures by transabdominal scanning. COMPARISON: [facility], CT, CT ABDOMEN PELVIS W CON, 02/10/2024, 17:50. FINDINGS: Uterus: Uterus is anteverted and normal in size at 10.1 x 6.1 x 7.8 cm. The myometrium is homogeneous. Endometrial stripe is obscured by large mass lesion measuring 6.4 x 5.5 x 6.1 cm with internal vascularity Ovaries: Neither ovary visualized Other: No pathologic free abdominal or pelvic fluid. IMPRESSION: Large uterine mass lesion with internal vascularity. Differential would include neoplasm versus uterine fibroid. Consider endometrial biopsy and or follow-up MRI with contrast Approved by: Jarocho Borrego M.D. on 02/13/2024 at 12:33
--- NOTE | 2024-02-13 10:43 | PT.IPTN ---
Current Diagnoses Spondylolisthesis, lumbar region (02/09/24) Postlaminectomy syndrome, not elsewhere classified (02/09/24) Surgery Performed Operation Date: 02/09/24 11:15 Actual Procedures p L3-4, L4-5 TRANSFORAMINAL LUMBAR INTERBODY FUSION WITH POSTERIOR INSTRUMENTATION WITH ROBOT - Boyd Call MD Operation Date: 02/12/24 09:30 Actual Procedures p Colonoscopy AND VAGINAL EXAM - Dorothy Jones MD Physical Therapy Treatment Note M2 PT-IP Current Condition Start: 02/10/24 09:25 Freq: NEEDED Status: Active Protocol: Document 02/10/24 09:25 MB (Rec: 02/10/24 10:13 MB [id number]) Physical Therapy Current Condition Current Condition Evaluation Date 02/10/24 Treatment Diagnosis Lumbar surgery M3 PT-IP Subjective Start: 02/10/24 09:25 Freq: NEEDED Status: Active Protocol: Document 02/13/24 10:11 KS (Rec: 02/13/24 12:32 KS [id number]) Subjective Physical Therapy Visit Type Type Treatment Note Visit Start Time 10:11 Visit Stop Time 10:43 Number of COPPER FLOTATION OPERATOR Visits 1 Physical Therapy Visit Comments Patient Comments Pt agreeable to PT Therapy Pain Assessment Pain When Pain Assessed At Rest Pain Present Pain Present Pain Reported Location back Intensity 6 Scale Used Numeric (0 - 10) Pain Behaviors Facial Grimacing,Guarding Pain Management Techniques Apply Cold,Distraction, Modification of Treatment,Re- positioning,Timing of Activity with Medications M4 PT-IP Mobility and Gait Start: 02/10/24 09:25 Freq: NEEDED Status: Active Protocol: Document 02/13/24 10:11 KS (Rec: 02/13/24 12:32 KS [id number]) PT-Bed Mobility Assessment Rolling Type of Rolling Log Rolling Level of Assist Standby Assistance Supine to Sit Supine to Sit Standby Assistance Sit to Supine Sit to Supine Standby Assistance PT-Transfer Assessment Sit to and From Stand Sit to and from Stand Contact Guard Assistance,1 Person Assistance,Use of Upper Extremities Equipment Transfer Assistive Device Gait Belt,Front Wheeled Walker Orthotic/Prosthetic Devices or Brace: No Transfers Transfer Destination Bed Transfer Technique ambulated Transfer Ability Level of Assist Contact Guard Assistance,1 Person Assistance,Use of Upper Extremities Comments Mobility Comments Pt in bed upon arrival, c/o back and leg pain has gotten better followinw surgery but still bothering her 6/10. Pt explains new cancer diagnosis. SBA for bed mobility, CGA for transfers and ambulation w/ RW. Pt able to amvulate 40 ft but reports fatigue, pain, and light headedness. BP stable. Pt request sto return to bed due to fatigue, Min A for LE elevation into bed. Ice applied and pt left in bed w/ all needs in reach. Gait Assessment Gait Gait Assistance Required: Contact Guard Assist Distance (Feet) 40 Able to Maintain Weight Bearing Status Yes During Gait Assistive Devices Assistive Device Gait Belt,Front Wheeled Walker Orthotic/Prosthetic Devices or Brace: No Gait Deviations General Gait Pattern Decreased Stride Length, Decreased Feet Clearance,Step- to Gait Factors Limiting Gait Function Factors Limiting Gait Function Decreased Activity Tolerance, Decreased Strength,Difficulty Following Directions,Limited Range of Motion,Pain,Poor Balance,Poor Safety Awareness PT-Balance Assessment Sitting Balance and Reactions Static Sitting Balance Ability Good Dynamic Sitting Balance Ability Good Standing Balance and Reactions Static Standing Balance Ability Good Dynamic Standing Balance Ability Good Device Used RW M5 PT-IP Objective Assessments Start: 02/10/24 09:25 Freq: NEEDED Status: Active Protocol: Document 02/10/24 09:25 MB (Rec: 02/10/24 10:13 MB [id number]) Orientation Orientation/Cognition Level of Alertness Alert Orientation Name,Place,Situation Language Function Ability No Deficits Noted Safety Awareness Understands Safety Issues Memory Description No Deficits Noted Comments PT does not ask all of orientation questions as OT is asking questions when PT steps out to get recliner and pt appears A&O, can defer to OT note for further details Gross Range of Motion Upper Extremity ROM Impairments Defer to OT Lower Extremity ROM Impairments Functional movement in bed and with transfers and gait but increased pain in back with attempted B HS in the bed before getting up, so limited by pain post-op. Abdominal pannus limits hip flexion B in sitting EOB. Strength Lower Extremity Strength Assessment Within Functional Limits Coordination Assessment Gross Coordination Gross Coordination WNL Sensation Assessment Sensation Gross Sensation WNL Comments Sensation Comments Pt reports previous left sciatica symptoms are better though with ankle DF with leg straight in supine, she does feel tension in calf and posterior leg Muscle Tone Muscle Tone WNL Yes M6 PT-IP Treatment Start: 02/10/24 09:25 Freq: NEEDED Status: Active Protocol: Document 02/13/24 10:11 KS (Rec: 02/13/24 12:32 NC [id number]) Physical Therapy Treatment Education Education Provided Precautions,Safety M7 PT-IP Assessment and Plan Start: 02/10/24 09:25 Freq: NEEDED Status: Active Protocol: Document 02/13/24 10:11 KS (Rec: 02/13/24 12:32 NC [id number]) PT Summary Assessment and Plan Potential Rehabilitation Potential Fair Summary Impairments Pain,ROM,Strength,Balance, Coordination,Sensation,Tone, Cognition,Bed Mobility, Transfers,Gait,Activity Tolerance Progress Towards Goals Slow Progress due to Medical Issues,Slow Progress due to Activity Tolerance,Slow Progress - Other Assessment Summary Pt continues to require mostly CGA, just Min A for LE elevation into bed. Able to ambulate 40 ft, but then reports fatigue and still reports lightheadedness. Will continue to assess progress. Goals Bed Mobility Goal Independent Transfer Goal Independent,Front Wheeled Walker,Four Wheeled Walker Gait Goal Independent,Front Wheel Walker ,Four Wheel Walker Gait Distance 75 Days to Meet Goals 5 Frequency of Treatment Frequency Of Treatment Twice a Day Other frequency or as tolerated Treatment Plan Physical Therapy Treatment Plan Bed Mobility Training,Transfer Training,Gait Training, Therapeutic Exercise,Balance Retraining,Post Op Education, Discharge Planning,Hot or Cold Pack,Neuromuscular Re-ed, Coordination Retraining,Manual Therapy Precautions Lumbar Precautions Log Roll,No Twisting,Limit Bending,Lifting Restriction of 10 lbs,Gait Belt above Incisional Area Weight Bearing Status Weight Bearing Status Weight Bear as Tolerated Recommendations To Nursing Amount of Assist Needed 1 Person Assist Discharge Recommendations PT Discharge Recommendations Home with 08/02 Assist Available,Home Health Transportation Needs at Discharge Private Vehicle
--- NOTE | 2024-02-13 13:58 | PC.NURSE ---
dressing change dressing to back changed. 4 incision sites well approximated with sheila. no signs of infection. Barrier dressing placed to proximal 2 incisions and alyvan dressings placed to distal (smaller) incisions.
--- NOTE | 2024-02-13 14:02 | CM.DPC ---
DCP Cont. Reviewed EMR and team rounds for status updates. Met with pt at bedside to assess coping and where she is at in terms of being scheduled with Oncology. Pt states that Dr. Jones is coordinating with [facility] for her to have further consultation once the pathology is available, her additional biopsies will be done tomorrow. IDENTIFICATION CLERK offered emotional support and encouragement. Several family members arrived and were all present at the end of this visit. Follow closely for d/c needs.
--- NOTE | 2024-02-13 14:46 | PM.PN.1 ---
Subjective Subjective Date Patient Seen: 02/13/24 Time Patient Seen: 10:00 Interval history: Patient continues to have pain radiating down left leg. Pelvic US shows uterine mass. CT chest shows mets in lungs Exam Vital Signs (past 8 hours): - 02/13/24 08:00 02/13/24 09:15 Temperature 97.1 F L Pulse Rate 80 Respiratory Rate 16 Blood Pressure 124/69 Pulse Oximetry 93 Oxygen Delivery Method Room Air Oxygen Delivery Method Room Air Oxygen Flow Rate 0 Narrative Exam Narrative: unchanged Objective Labs 02/10/24 06:24 02/12/24 13:40 [facility] Medical History History of COVID-19 Acid reflux Panic attacks Lumbar post-laminectomy syndrome Microcytic anemia Pelvic floor dysfunction in female Genitourinary syndrome of menopause BMI 38.0-38.9,adult Fibromyalgia Tinnitus Vaginal atrophy Painful menstrual periods (1969) History of recurrent ear infection (1960) Glaucoma (2009) Fatty tumor Plantar warts (2002) Arthritis (2004) Shoulder pain (2008) Lumbar spine pain (2004) Foot pain (2012) Chronic back pain (2004) Suicide attempt (2004) Pneumothorax Hearing loss (1961) Anemia (1986) Chicken pox (1960) Measles (1961) Hayfever Morbid obesity with body mass index (BMI) of 40.0 to 49.9 (08/07/16) Essential hypertension (08/07/16) Gastroesophageal reflux disease without esophagitis (04/03/16) Dorsalgia (06/16/11) Obstructive sleep apnea syndrome (06/16/11) Generalized anxiety disorder (06/16/11) Mixed hyperlipidemia (06/16/11) Attention-deficit hyperactivity disorder, predominantly inattentive type Post traumatic stress disorder (PTSD) Surgical History History of colonoscopy (04/11/18) History of ear surgery History of thumb surgery (2009) History of back surgery (2007) History of carpal tunnel repair (2010) Status post delivery (01/27/90) Status post tonsillectomy and adenoidectomy Family History Father Cancer Hypertension High cholesterol Grandfather Cancer Mental health problem Depression Leukemia Grandmother Mental health problem Alzheimer's dementia Grandfather Diabetes mellitus Hypertension High cholesterol Grandmother Heart disease Social History marital status: number of children: 2 household members: none lives independently: Yes caregiver/support person: No housing: apartment pets and animals: Yes education level: college occupational status: disabled 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 Protein malnutrition anemia metastatic neoplasm. Plan: excisional biopsy of left abd wall mass and biopsy of uterine tumor (trans vaginal) in am. Nurtrition and social work consults for to prep for cancer treatment. Dr Luque to see tomorrow, I hope he can help w out patient organization of her care. Time-Based Coding :: [TOTAL MINUTES] spent with patient and on the chart (including review of chart, obtaining history, exam, reviewing outside data, placing orders, documenting exam and treatment plan, and counseling patient) on [DATE]. Quality VTE Deep Vein Thrombosis/Pulmonary Embolism Present on Admission: No
[2024-02-13 17:00] VITALS: BP 145/53; PULSE 75; RESP 16; TEMP 36.6; O2SAT 97
[2024-02-13 20:00] VITALS: BP 99/52; PULSE 95; RESP 22; TEMP 37.3; O2SAT 96
[2024-02-13] MEDS: TRAZODONE 50 MG TABLET 100 MG PO (20:07)
[2024-02-13] MEDS: CYCLOBENZAPRINE 10 MG TABLET 5 MG PO (22:52)
[2024-02-13] MEDS: LACTATED RINGERS 1,000 ML 100 ML IV (23:07)
[2024-02-14] VITALS (16 sets, daily range): BP systolic 102–146; BP diastolic 44–87; PULSE 74–89; RESP 12–20; TEMP 36.1–36.5; O2SAT 93–100; BMI 36.8
--- NOTE | 2024-02-14 | PATH_ITS ---
[facility] Accession Number: [id number] No. of containers..03 Tissue . 01 Material submitted: . PART A: abdomen - LEFT LOWER ABDOMINAL WALL NODULE PART B: endometrium - ENDOMETRIAL CURETTINGS PART C: cervix - ANTERIOR LIP CERVICAL LESION . 01 Diagnosis: A. LEFT LOWER ABDOMINAL WALL NODULE, EXCISIONAL BIOPSY: High-grade, spindled and epithelioid, malignancy; see comment. PENDING CONSULTATION. . B. ENDOMETRIUM, CURETTAGE: High-grade, spindled and epithelioid, malignancy; see comment. PENDING CONSULTATION. . C. ANTERIOR LIP, CERVICAL LESION, BIOPSY: High-grade, spindled and epithelioid, malignancy; see comment. PENDING CONSULTATION. . COMMENT: The tumor involving all 3 parts above is similar morphologically and consists of a high-grade pleomorphic spindled and epithelioid malignancy. A panel of immunohistochemical studies is performed (see microscopic description) and engenders a differential diagnosis that includes, but is not limited to, endometrial stromal sarcoma (high grade), endometrial sarcoma (unspecified), or leiomyosarcoma. Given the lack of epithelial markers, less likely, but not completely excluded, is sarcomatous component of a carcinosarcoma. . This case will be forwarded to [facility] for further additional studies and expert pathology opinion. An addendum with the consultative opinion will follow. . Dr. Umana's office (directly reported to Emelia Melchor RN) is notified of the preliminary findings on this case on 02/23/2024. [facility] 02/23/2024 2345 Local . 01 Electronically signed: . Chelsy Segura MD, Pathologist NPI- [id number] . 01 Gross description: . A. Received in formalin with two patient identifiers and left lower abdominal wall nodule, is a yellow to gaviria soft tissue fragment, 3.0 x 2.6 x 1.5 cm, inked blue and sectioned to reveal a fairly well-defined pale gaviria soft lesion, 2.1 x 1.8 x 1.2 cm. The remaining cut surface is unremarkable yellow adipose. Submitted entirely in A1-A5. B. Received in formalin with two patient identifiers and endometrial curetting, are multiple gaviria soft tissue fragments admixed with mucohemorrhagic material aggregating to 3.5 x 3.4 x 0.4 cm. Filtered and submitted entirely in B1-B2. C. Received in formalin with two patient identifiers and anterior lip cervical lesion biopsy, are two red-brown soft tissue fragments, 0.4-0.5 cm in greatest dimension. Submitted in C1. ([id number]) /MRV 02/15/2024 1533 Local . 01 Microscopic: . An immunohistochemistry* panel is performed on block B1, with appropriately staining external controls; the malignant neoplasm demonstrates the following immunoprofile: . RESULTS: MARLON: Negative. BERNY: Very weak blush in rare cells, mostly negative. High molecular weight cytokeratin: Negative. SMA: Variably positive. Smooth muscle myosin: Negative. Desmin: Negative. ER: Variably positive. NM: Weakly positive. PAX8: Positive. P16: Diffusely positive. p40: Negative. p63: Scattered positive cells. CD10: Negative. Cyclin D1: Scattered positive cells. S100: Negative. Melan-A: Weak blush in rare cells, mostly negative. SOX-10: Negative. C-kit: Negative. ALK1: Negative. CD56: Diffusely positive. Chromogranin: Negative. Synaptophysin: Negative. SALL4: Negative. P53: Appears lost (negative/mutated type). WT-1: Negative. . Additional studies are performed selectively on block A5 and demonstrate the following pattern: . CD45: Negative. CK5/6: Negative. DOG1: Negative. WT1: Negative. Calretinin: Negative. CD34: Negative. CD31: Variably positive in some cells. HMB45: Negative. * This test was developed and its performance characteristics determined by [employer]. It has not been cleared or approved by the U.S. Food and Drug Administration. The FDA has determined that such clearance or approval is not necessary. This test is used for clinical purposes. It should not be regarded as investigational or for research. . 01 Pathologist provided ICD-10: C54.1 . 01 CPT . 656400, 505063, 797966, P63205, H10773 Specimen Comment: A courtesy copy of this report has been sent to [phone] Performed at: [address] [facility] [address], [place], [place] [id number] MD Phillip Mckeon MD Phone: [phone]
[2024-02-14] MEDS: OXYCODONE IR 10 MG TABLET PO ×2 (02:31→05:30)
--- NOTE | 2024-02-14 07:33 | PM.PNPO.1 ---
Subjective Subjective Date Patient Seen: 02/14/24 Time Patient Seen: 07:33 Interval history: Pt sitting up in bed, feeling well. Continues to c/o LLE pain but this is MUCH improved since surgery. She reports ambulating without much difficulty. She is overall very happy with her surgical results thus far. She does have some trepidation about her pending cancer diagnosis and is looking forward to procedure today for more definitive diagnosis. Exam Vital Signs (past 8 hours): - 02/14/24 05:23 Temperature 97.4 F L Pulse Rate 81 Respiratory Rate 16 Blood Pressure 126/48 L Pulse Oximetry 94 Oxygen Flow Rate 0 Oxygen Delivery Method Room Air,CPAP Oxygen Flow Rate 0 Narrative Exam Narrative: 5/5 strength in hip flexors, quadriceps, hamstrings, DF, PF, EHL bilaterally. Sensation to light touch intact throughout BLE, calves soft and compressible. Low back dressing changed since surgery, CDI. SCDs were not in place when I entered the room; I put them on her and turned them on. [facility] 02/10/24 06:24 02/12/24 13:40 [facility] Medical History History of COVID-19 Acid reflux Panic attacks Lumbar post-laminectomy syndrome Microcytic anemia Pelvic floor dysfunction in female Genitourinary syndrome of menopause BMI 38.0-38.9,adult Fibromyalgia Tinnitus Vaginal atrophy Painful menstrual periods (1969) History of recurrent ear infection (1960) Glaucoma (2009) Fatty tumor Plantar warts (2002) Arthritis (2004) Shoulder pain (2008) Lumbar spine pain (2004) Foot pain (2012) Chronic back pain (2004) Suicide attempt (2004) Pneumothorax Hearing loss (1961) Anemia (1986) Chicken pox (1960) Measles (1961) Hayfever Morbid obesity with body mass index (BMI) of 40.0 to 49.9 (08/07/16) Essential hypertension (08/07/16) Gastroesophageal reflux disease without esophagitis (04/03/16) Dorsalgia (06/16/11) Obstructive sleep apnea syndrome (06/16/11) Generalized anxiety disorder (06/16/11) Mixed hyperlipidemia (06/16/11) Attention-deficit hyperactivity disorder, predominantly inattentive type Post traumatic stress disorder (PTSD) Surgical History History of colonoscopy (04/11/18) History of ear surgery History of thumb surgery (2009) History of back surgery (2007) History of carpal tunnel repair (2010) Status post delivery (01/27/90) Status post tonsillectomy and adenoidectomy Family History Father Cancer Hypertension High cholesterol Grandfather Cancer Mental health problem Depression Leukemia Grandmother Mental health problem Alzheimer's dementia Grandfather Diabetes mellitus Hypertension High cholesterol Grandmother Heart disease Social History marital status: number of children: 2 household members: none lives independently: Yes caregiver/support person: No housing: apartment pets and animals: Yes education level: college occupational status: disabled 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 SCDs should be on and functioning at all times when pt is in bed or chair. She continues to have LLE pain, though this has improved. We discussed possibly starting dexamethasone 4mg QID after her surgery today to see if this helps. Will discuss again later today or tomorrow; can hold off on steroids if the LLE symptoms are not too troubling as pt is concerned about wt gain. (2) Uterine mass: Assessment and Plan narrative: Scheduled for excisional biopsy of left abdominal mass and transvaginal biopsy of uterine mass today for confirmatory diagnosis of primary cancer. (3) Metastasis: Assessment and Plan narrative: Imaging done during this admission has demonstrated masses in the liver, lungs, and sacrum. Per Dr Jones's note yesterday, Dr Luque is aware of pts new diagnoses and will hopefully be organizing post-biopsy referrals. Postoperative Procedures: Procedures Operation Date: 02/09/24 11:15 Actual Procedure Side Surgeon p L3-4, L4-5 TRANSFORAMINAL LUMBAR INTERBODY FUSION WITH POSTERIOR INSTRUMENTATION WITH ROBOT Boyd Call MD Operation Date: 02/12/24 09:30 Actual Procedure Side Surgeon p Colonoscopy AND VAGINAL EXAM Dorothy Jones MD Operation Date: 02/14/24 09:30 <No data on this case meets the specified criteria> Postoperative day: 5 Quality VTE Deep Vein Thrombosis/Pulmonary Embolism Present on Admission: No
--- NOTE | 2024-02-14 07:42 | P.CONS_ITS ---
History of Present Illness Consult details Date Patient Seen: 02/14/24 Time Patient Seen: 07:43 Chief complaint: pain Requesting provider: Dorothy Jones Narrative: 63-year-old female, well known to me, presented with lumbar radiculopathic symptoms of an acute nature. These failed to respond to conservative measures and she was subsequently underwent lumbar surgery on February 08. She was having an uneventful postoperative recovery when she developed some left lower quadrant pain as well as perhaps some sort of lump in the left lower quadrant of the she can feel when standing Orthopaedic surgery very appropriately ordered an abdominal/pelvic CT which demonstrated metastatic neoplasm, with an ill-defined density within the endometrium, as well as multiple masses probably Mets in the liver as well as a bony mass in the lower segment of the sacrum (that was not apparently present on prior MR imaging prior to her surgery, imaging done associated with her ongoing back issues). There is also a 1.7 cm soft tissue mass in the subcutaneous fat of the left flank. Subsequently CT scan is also demonstrated that is scattered metastatic bilateral pulmonary nodules largest in the right lung apex at about 7 mm. Surgery was consulted who performed colonoscopy which was entirely normal. Pelvic ultrasound was performed which demonstrated a large uterine mass with internal vascularity consistent with an endometrial neoplasm. Patient had normal pelvic exam (perhaps some mild tenderness to bimanual exam) in November of this year by Dr. Worrell. No Pap smear was obtained at that time it appears, last was performed in 2020. Patient is going to have a more definitive biopsy in procedure done with Dr. Jones of General surgery and Dr. Umana from Gynecology (who kindly agreed to assist with her expertise in this situation) Patient was continued to recover normally postoperatively from her back surgery. She was having some difficulty ambulating etcetera and thoughts he had been for probable discharge to alf, but in the ensuing time required to evaluate her issues above, her back is much much better and she was ambulating without particular difficulty and likely can go home, per Orthopedic surgery Meds Home Medications and Allergies Home Medications Medication Instructions Recorded Confirmed Type Disabled Parking #1 ea 11/28/21 02/10/24 Rx [facility] AirSense 10 05/20/22 02/10/24 History docusate sodium 100 mg capsule 100 mg PO BID #180 caps 11/13/22 02/09/24 Rx bupropion HCl 300 mg 24 hr tablet, 300 mg PO Q DAY #90 tabs 06/23/23 02/09/24 Rx extended release (Wellbutrin XL) trazodone 50 mg tablet 100 mg (2 x 50 mg) PO BEDTIME #180 06/23/23 02/09/24 Rx tabs hydrochlorothiazide 25 mg tablet 25 mg PO DAILY #90 tabs 06/24/23 02/09/24 Rx potassium chloride 20 mEq 20 meq PO DAILY #90 tabs 11/12/23 02/09/24 Rx tablet,extended release estradiol 0.01% (0.1 mg/gram) 1 appful vaginal DAILY #42.5 grams 11/24/23 02/09/24 Rx vaginal cream (Estrace) acetaminophen 650 mg 650 mg PO QID 01/31/24 02/09/24 History tablet,extended release omeprazole 40 mg capsule,delayed 40 mg PO BID 01/31/24 02/09/24 History release ramelteon 8 mg tablet (Rozerem) 8 mg PO HS Sleep 01/31/24 01/31/24 History hydrocodone 10 mg-acetaminophen 1 - 2 tab PO TID PRN pain #60 tabs 02/07/24 02/09/24 Rx 325 mg tablet hydrocortisone 1 % topical cream 1 applic topical QID PRN 02/09/24 02/09/24 History (Preparation H Hydrocortisone) Hemorrhoids methylphenidate HCl 10 mg biphasic 10 mg PO QAM 02/09/24 02/09/24 History 30-70 capsule,extended release (Metadate CD) mupirocin 2 % topical ointment 1 applic topical BID 02/09/24 02/10/24 History Allergies Allergy/AdvReac Type Severity Reaction Status Date / Time penicillin G Allergy Mild RASH Verified 02/09/24 10:04 doxycycline AdvReac Mild N/V Verified 02/09/24 10:04 Sulfa (Sulfonamide AdvReac Mild ACT LIKE Verified 02/09/24 10:04 Antibiotics) I'M DRUNK/SICK gabapentin [GABAPENTIN] AdvReac Unknown Drowsy Verified 02/09/24 10:04 eggplant AdvReac Mild stinging Uncoded 02/03/24 10:49 needle feeling on tongue Review of Systems Review of Systems ROS: Yes All systems reviewed with the patient and are negative except as otherwise documented Exam Vital Signs (past 8 hours): - 02/14/24 05:23 02/14/24 07:37 Temperature 97.4 F L 97.7 F Pulse Rate 81 78 Respiratory Rate 16 20 Blood Pressure 126/48 L 106/44 L Pulse Oximetry 94 96 Oxygen Flow Rate 0 0 Oxygen Delivery Method Room Air,CPAP Oxygen Flow Rate 0 [facility] 02/10/24 06:24 02/12/24 13:40 [facility] Medical History History of COVID-19 Acid reflux Panic attacks Lumbar post-laminectomy syndrome Microcytic anemia Pelvic floor dysfunction in female Genitourinary syndrome of menopause BMI 38.0-38.9,adult Fibromyalgia Tinnitus Vaginal atrophy Painful menstrual periods (1969) History of recurrent ear infection (1960) Glaucoma (2009) Fatty tumor Plantar warts (2002) Arthritis (2004) Shoulder pain (2008) Lumbar spine pain (2004) Foot pain (2012) Chronic back pain (2004) Suicide attempt (2004) Pneumothorax Hearing loss (1961) Anemia (1986) Chicken pox (1960) Measles (1961) Hayfever Morbid obesity with body mass index (BMI) of 40.0 to 49.9 (08/07/16) Essential hypertension (08/07/16) Gastroesophageal reflux disease without esophagitis (04/03/16) Dorsalgia (06/16/11) Obstructive sleep apnea syndrome (06/16/11) Generalized anxiety disorder (06/16/11) Mixed hyperlipidemia (06/16/11) Attention-deficit hyperactivity disorder, predominantly inattentive type Post traumatic stress disorder (PTSD) Surgical History History of colonoscopy (04/11/18) History of ear surgery History of thumb surgery (2009) History of back surgery (2007) History of carpal tunnel repair (2010) Status post delivery (01/27/90) Status post tonsillectomy and adenoidectomy Family History Father Cancer Hypertension High cholesterol Grandfather Cancer Mental health problem Depression Leukemia Grandmother Mental health problem Alzheimer's dementia Grandfather Diabetes mellitus Hypertension High cholesterol Grandmother Heart disease Social History marital status: number of children: 2 household members: none lives independently: Yes caregiver/support person: No housing: apartment pets and animals: Yes education level: college occupational status: disabled 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 Will referral to [facility] for definitive next steps probably to include surgical and adjuvant treatment 2. Status post lumbar laminectomy and fusion with apparently improving results and fairly dramatic relief of pain. Continue with skilled therapies as per Orthopedic surgery and plan for discharge home probably with home health when issues with problem 1. Above have been more settled 3. Hypertension-patient's blood pressure has been somewhat hypotensive. She was certainly does not need to be on any antihypertensive therapy upon discharge 4. Anxiety-patient has significant anxiety and an element of PTSD. Followed by Dr. Kincaid in Psychiatry. Continue doubt change. Unfortunately her cancer diagnosis is not going to help this particular issue. Will need close follow-up with Psychiatry I believe. For now continue current medications including the alprazolam (which she as only had a very few doses) 5. Obesity with BMI 36.9, this obviously complicated her back surgery and I think her recovery from same. Continue to monitor for now. 6. Microcytic anemia-not present in 2017 and present in January 06, 2024. No CBC is in between. Negative colonoscopy as noted previously. Perhaps related to her new cancer diagnosis. Consider ordering iron studies which have not yet been done with next blood tests etcetera 7. Sleep apnea-continue with the patient's CPAP/BiPAP while here. Continue this at home as well. 8. Disposition-fortunately patient does appear to physically to be able to go home. When recovered from her biopsy procedure etcetera can likely go home but will need as above probable referral to [facility] as next step. Would suggest going home with home health services etcetera. Also would recommend close follow up with Dr. Kincaid as above. Time-Based Coding :: [TOTAL MINUTES] spent with patient and on the chart (including review of chart, obtaining history, exam, reviewing outside data, placing orders, documenting exam and treatment plan, and counseling patient) on [DATE].
[2024-02-14] MEDS: LACTATED RINGERS 1,000 ML 100 ML IV (08:55)
--- NOTE | 2024-02-14 09:17 | PM.PREOP ---
Pre-operative Note Interval Note History & Physical reviewed/Exam performed by Physician: Yes Changes to H&P: No H&P completed within 30 days and has changed as indicated here:: Bx of uterine mass by Dr. Potts and excisional biopsy of left lower abdominal cutaneous mass by myself.
[2024-02-14] MEDS: OXYCODONE IR 5 MG TABLET PO ×2 (09:44→17:25)
[2024-02-14] MEDS: HYDROMORPHONE 1 MG INJ (10:05)
--- NOTE | 2024-02-14 10:12 | P.CONS_ITS ---
History of Present Illness Consult details Date Patient Seen: 02/14/24 Time Patient Seen: 10:13 Chief complaint: pain Narrative: Patient is a 63-year-old 2 para 2 who underwent spine surgery last week. Her postoperative pain was not consistent with the surgery that was done. On February 10, [address] of the abdomen and pelvis. MPRESSION: Multiple liver masses, concerning for metastatic disease. Primary is likely endometrial cancer, as the uterus is enlarged with ill-defined endometrium. On February 13, 2024 she underwent a pelvic ultrasound FINDINGS: Uterus: Uterus is anteverted and normal in size at 10.1 x 6.1 x 7.8 cm. The myometrium is homogeneous. 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 She reports several month history of pain in the pelvis. She reports that the clitoris is hypersensitive. She feels that the opening of the vagina is enlarged due to something in the vagina. Meds Home Medications and Allergies Home Medications Medication Instructions Recorded Confirmed Type Disabled Parking #1 ea 11/28/21 02/10/24 Rx ResMed AirSense 10 05/20/22 02/10/24 History docusate sodium 100 mg capsule 100 mg PO BID #180 caps 11/13/22 02/09/24 Rx bupropion HCl 300 mg 24 hr tablet, 300 mg PO Q DAY #90 tabs 06/23/23 02/09/24 Rx extended release (Wellbutrin XL) trazodone 50 mg tablet 100 mg (2 x 50 mg) PO BEDTIME #180 06/23/23 02/09/24 Rx tabs hydrochlorothiazide 25 mg tablet 25 mg PO DAILY #90 tabs 06/24/23 02/09/24 Rx potassium chloride 20 mEq 20 meq PO DAILY #90 tabs 11/12/23 02/09/24 Rx tablet,extended release estradiol 0.01% (0.1 mg/gram) 1 appful vaginal DAILY #42.5 grams 11/24/23 02/09/24 Rx vaginal cream (Estrace) acetaminophen 650 mg 650 mg PO QID 01/31/24 02/09/24 History tablet,extended release omeprazole 40 mg capsule,delayed 40 mg PO BID 01/31/24 02/09/24 History release ramelteon 8 mg tablet (Rozerem) 8 mg PO HS Sleep 01/31/24 01/31/24 History hydrocodone 10 mg-acetaminophen 1 - 2 tab PO TID PRN pain #60 tabs 02/07/24 02/09/24 Rx 325 mg tablet hydrocortisone 1 % topical cream 1 applic topical QID PRN 02/09/24 02/09/24 History (Preparation H Hydrocortisone) Hemorrhoids methylphenidate HCl 10 mg biphasic 10 mg PO QAM 02/09/24 02/09/24 History 30-70 capsule,extended release (Metadate CD) mupirocin 2 % topical ointment 1 applic topical BID 02/09/24 02/10/24 History Allergies Allergy/AdvReac Type Severity Reaction Status Date / Time penicillin G Allergy Mild RASH Verified 02/09/24 10:04 doxycycline AdvReac Mild N/V Verified 02/09/24 10:04 Sulfa (Sulfonamide AdvReac Mild ACT LIKE Verified 02/09/24 10:04 Antibiotics) I'M DRUNK/SICK gabapentin [GABAPENTIN] AdvReac Unknown Drowsy Verified 02/09/24 10:04 eggplant AdvReac Mild stinging Uncoded 02/03/24 10:49 needle feeling on tongue Exam Vital Signs (past 8 hours): - 02/14/24 05:23 02/14/24 07:37 02/14/24 09:39 Temperature 97.4 F L 97.7 F 97.6 F Pulse Rate 81 78 78 Respiratory Rate 16 20 16 Blood Pressure 126/48 L 106/44 L 122/76 Pulse Oximetry 94 96 93 Oxygen Delivery Method Room Air Oxygen Flow Rate 0 0 Oxygen Delivery Method Room Air Oxygen Flow Rate 0 Narrative Exam Narrative: Generally: Patient lying in bed, daughter at her side, no acute distress Abdomen: Obese. Well-healed Pfannenstiel scar. No hepatosplenomegaly. External genitalia: Normal labia minora and majora. Normal urethral meatus. Normal Bartholin's and [place]'s glands. Vagina: Normal. Bimanual exam: Deferred to OR Objective Labs 02/10/24 06:24 02/12/24 13:40 [facility] Medical History History of COVID-19 Acid reflux Panic attacks Lumbar post-laminectomy syndrome Microcytic anemia Pelvic floor dysfunction in female Genitourinary syndrome of menopause BMI 38.0-38.9,adult Fibromyalgia Tinnitus Vaginal atrophy Painful menstrual periods (1969) History of recurrent ear infection (1960) Glaucoma (2009) Fatty tumor Plantar warts (2002) Arthritis (2004) Shoulder pain (2008) Lumbar spine pain (2004) Foot pain (2012) Chronic back pain (2004) Suicide attempt (2004) Pneumothorax Hearing loss (1961) Anemia (1986) Chicken pox (1960) Measles (1961) Hayfever Morbid obesity with body mass index (BMI) of 40.0 to 49.9 (08/07/16) Essential hypertension (08/07/16) Gastroesophageal reflux disease without esophagitis (04/03/16) Dorsalgia (06/16/11) Obstructive sleep apnea syndrome (06/16/11) Generalized anxiety disorder (06/16/11) Mixed hyperlipidemia (06/16/11) Attention-deficit hyperactivity disorder, predominantly inattentive type Post traumatic stress disorder (PTSD) Surgical History History of colonoscopy (04/11/18) History of ear surgery History of thumb surgery (2009) History of back surgery (2007) History of carpal tunnel repair (2010) Status post delivery (01/27/90) Status post tonsillectomy and adenoidectomy Family History Father Cancer Hypertension High cholesterol Grandfather Cancer Mental health problem Depression Leukemia Grandmother Mental health problem Alzheimer's dementia Grandfather Diabetes mellitus Hypertension High cholesterol Grandmother Heart disease Social History marital status: number of children: 2 household members: none lives independently: Yes caregiver/support person: No housing: apartment pets and animals: Yes education level: college occupational status: disabled 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-ism: [employer] travel history: recent leisure activities: exercise, art and other Tobacco & Substance Use Smoking Status: Former smoker Tobacco: How many years used: 0 quit status: quit date established second hand exposure: Yes alcohol intake: current substance use type: does not use Assessment & Plan Assessment and plan (1) Uterine mass: Status: Acute Plan: Assessment: 63-year-old 2 para 2 with a uterine mass on ultrasound and CT 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 The risks including bleeding, infection, uterine or bladder perforation. She understands these risks and agrees to proceed. A full par Q was held and consent form was signed. Time-Based Coding :: [TOTAL MINUTES] spent with patient and on the chart (including review of chart, obtaining history, exam, reviewing outside data, placing orders, documenting exam and treatment plan, and counseling patient) on [DATE].
--- NOTE | 2024-02-14 11:15 | DIET.CONS ---
Dietary Consultation Note Admission Date: 02/09/2024 09:13 Assessment: 63 y F admitted after lumbar laminectomy and fusion. Nutrition consulted for new dx metastatic cancer. Pt underwent biopsy this morning, chart reviewed. Avg 70% of recorded po intakes. Ht: 158.75 cm Wt: 92.987 kg BMI: 36.8 UBW: 98.883 kg on 01/14/24 per EMR (-6% weight loss in 1 month, severe) Last BM: 02/13/24 (02/14/24 09:39) MNA: 12 Edison Score: 18 Diet: 02/14/24 00:01 NPO Diet Diet Modifications: NPO Type: NPO after Midnight Nutrition Percent Meal Consumed 50% 02/13/24 18:00 Percent Meal Consumed 75% 02/13/24 13:00 Percent Meal Consumed 100% 02/13/24 07:00 Percent Meal Consumed 75% 02/12/24 18:00 Percent Meal Consumed 100% 02/12/24 14:00 Labs: Hgb 8.1 g/dL (12.0-16.0) L 02/10/24 06:24 Hct 26.1 % (36-46) L 02/10/24 06:24 Creatinine 0.60 mg/dL (0.52-1.04) 02/12/24 13:40 Nutrition Diagnosis: Unintended weight loss r/t increased energy-protein needs aeb 6% weight loss in 1 month, severe Interventions: 1. When diet advance, will add ONS as tolerated 2. F/u tomorrow for full assessment at bedside EER: 75-90 g protein (1.2-1.4 g/kg adjusted IBW per metastatic cancer) Monitoring/Evaluations: f/u 1 day Electronically Signed by: Avelina Gonzalez 02/14/24 11:15 Clinical Dietitian [address] [address]
--- NOTE | 2024-02-14 11:36 | SUR.OPER ---
Lithotomy on padded OR bed. [place] Pad Positioner under torso. Head on pillow, arms padded and tucked at sides. Legs secured in padded yellow fins stirrups.
--- NOTE | 2024-02-14 11:44 | P.OP_ITS ---
Operative Date/Time/Diagnoses Date of procedure: 02/14/24 Time of procedure: 11:44 Pre-op diagnosis: Cutaneous nodule left lower abdominal wall Post-op diagnosis: same Procedure & Clinicians Procedure: Excisional biopsy of left lower quadrant abdominal wall nodule Same procedure as scheduled: Yes Indications: Workup for metastatic cancer without etiology Surgeon: Dorothy Jones Click Yes if Unassisted: Yes Anesthesia Type: General and Local Operative Notes Findings: Hard nodule size of a marble Closure Type: primary Specimen(s): other (Left lower abdominal wall nodule) Estimated Blood Loss (mL): 10 Blood products transfused: none Procedure in detail: Preop diagnosis: Left lower abdominal wall nodule Postop diagnosis: Same Operative procedure: Excisional biopsy of left lower abdominal wall nodule Surgeon: Sarah Jones MD Anesthetic: General with ET tube intubation along with local Findings: [place] size hard nodule in the subcutaneous fat. Procedure: Patient placed in a supine position. Prepped and draped in sterile fashion to expose her left lateral abdomen. Local anesthetic was injected of 0.25% Marcaine with epinephrine. I then made a surgical incision over the palpable mass with electrocautery and curved Jaime scissors I excised the mass in total and sent it for permanent pathology. Hemostasis was achieved with electrocautery. Wound was closed with running mattress using 3-0 Monocryl Blood loss: 10 mL Specimen: Abdominal wall nodule Complications: none Post-operative Condition: stable Disposition: PACU
--- NOTE | 2024-02-14 11:59 | P.OP_ITS ---
Operative Date/Time/Diagnoses Date of procedure: 02/14/24 Time of procedure: 11:59 Pre-op diagnosis: Uterine mass Suspected Mets to bone, subcutaneous nodule and liver Post-op diagnosis: same Procedure & Clinicians Procedure: Procedures Operation Date: 02/09/24 11:15 Actual Procedure Side Surgeon p L3-4, L4-5 TRANSFORAMINAL LUMBAR INTERBODY FUSION WITH POSTERIOR INSTRUMENTATION WITH ROBOT Boyd Call MD Operation Date: 02/12/24 09:30 Actual Procedure Side Surgeon p Colonoscopy AND VAGINAL EXAM Dorothy Jones MD Operation Date: 02/14/24 09:30 Actual Procedure Side Surgeon p Excisional biopsy lower abdomin wall nodules Left Dorothy Jones MD s D & C HYSTEROSCOPY, CERVICAL BIOPSY, EXAM UNDER ANESTHESIA Mandie Umana MD Indications: 63-year-old 2 para 2 with intractable pain after spine procedure. Imaging showed a mass in the uterus with possible Mets to the liver, bone, and subcutaneous nodule Surgeon: Mandie Umana Anesthesia Type: General Operative Notes Findings: 6 week size anteverted uterus Difficult to palpate adnexa 1.5 cm friable lesion on the anterior lip of the cervix on the left side Large intrauterine soft mass Both fallopian tube ostia observed Closure Type: not applicable Specimen(s): endometrial curettings and other (cervical lesion bx) Applied: catheter (In/out) Estimated blood loss (mL): 5 Blood products transfused: none Procedure in detail: Informed consent was obtained. After general surgery finished cutaneous nodule biopsy, the patient was placed into the dorsal lithotomy position. An examination under anesthesia was performed. The external genitalia were normal, including labia minora and majora. Urethral meatus. Clitoris. And Bartholin's and [place]'s glands. A speculum was placed into the vagina. There was a lesion on the anterior lip of the cervix on the patient's left side measuring 1.5 x 1.5 cm. A single-tooth tenaculum was placed on the anterior lip of the cervix. The cervix was dilated until the hysteroscope could pass easily into the endometrial cavity. Both fallopian tube ostia were observed. There was a large soft mass in the uterus. This was blocking visualization. The hysteroscope was removed. The polyp forceps were used to remove large pieces of the mass. The hysteroscope was again passed into the uterus. There were still some areas of the mass remaining. Hysteroscope was removed. Sharp curettage was performed yielding a large amount of tissue. The instruments were removed from the u terus. Using a colposcopic biopsy forceps, the cervical lesion was biopsied. Monsel's solution applied to the cervical biopsy for hemostasis. The single- tooth tenaculum was removed from the anterior lip of the cervix. The bivalve speculum was removed from the vagina. Sponge, lap, and instrument counts were correct x2. The patient tolerated the procedure well, and was taken to PACU in stable condition. Complications: none Post-operative Condition: stable Disposition: PACU Plan for aftercare: To acute care after recovery
[2024-02-14] MEDS: LACTATED RINGERS 1,000 ML 42 ML IV (12:10)
[2024-02-14] MEDS: ONDANSETRON 4 MG/2 ML INJ IV (12:24)
[2024-02-14] MEDS: HYDROMORPHONE 1 MG INJ IV ×4 (12:25→12:49)
[2024-02-14] MEDS: METOCLOPRAMIDE 10 MG/2 ML INJ IV (12:38)
[2024-02-14] MEDS: hydrOXYzine 50 MG/ML INJ IM (12:44)
--- NOTE | 2024-02-14 13:42 | P.DS_ITS ---
History of Present Illness History of Present Illness Date Patient Seen: 02/14/24 Time Patient Seen: 13:42 Chief complaint: pain Narrative: Operative Date/Time/Diagnoses Date of procedure: 02/09/24 Time of procedure: 12:30 Pre-op diagnosis: 1. L3-4, L4-5 post laminectomy syndrome 2. L3-4, L4-5 foramen stenosis with radiculopathy Post-op diagnosis: same Procedure & Clinicians Procedure: 1. L3-4, L4-5 Postero-lateral and posterior interbody fusion 2. L3-4, L4-5 interbody cage placement. 3. L3-4, L4-5 decompressive laminectomy with bilateral facetecomies 4. L3-4, L4-5 Posterior segmental instrumentation 5. [place] of bone marrow from iliac crest 6. Utilization of microsurgical technique and operating microscope 7. Utilization of robotic assisted navigation Same procedure as scheduled: Yes Discharge Providers Provider Date of admission: 02/09/24 09:13 Discharge Date: 02/14/24 Primary care physician: Andrés Luque MD Consults: 02/09/24 18:43 Consult to Occupational Therapy Evaluate & Treat Comment: Physician Instructions: Evaluate and treat Consult to Physical Therapy Evaluate & Treat Comment: Physician Instructions: Evaluate and Treat 02/10/24 17:17 Consult to General Surgery Routine Comment: Consulting Provider: Dorothy Jones Reason for consultation: LLQ pain, r/o hernia Has provider been notified: Yes 02/13/24 11:14 Consult to [facility] - Solvent Station Attendant Routine Comment: Solvent Station Attendant Consult needed for:: Other reason (Comment) Comment: New Dx of metastatic cancer. Eval for support needs include financial 02/13/24 11:15 Consult to Hospitalist Service Routine Comment: Consulting Provider: Andrés Luque Reason for consultation: new dx cancer Has provider been notified: Yes 02/13/24 11:16 Consult to Dietitian, Adult Routine Comment: Reason For Exam: new dx metastatic cancer 02/14/24 12:09 Consult to Discharge Planning Routine Comment: Discharge provider: Ivonne Cardozo PA-C Summary Hospital Course Discharge Diagnosis: L3-4, L4-5 postlaminectomy syndrome and foraminal stenosis; s/p L3-4, L4-5 lumbar fusion and posterior segmental instrumentation Cancer, likely uterine or endometrial primary, with metastases to lungs, liver, and sacrum Hospital Course: Ms Mix was complaining of left-sided abdominal mass as well as pelvic/vaginal pain prior to surgery. On POD# 1, she was still complaining of these issues, and a CT of the abdomen was ordered. This revealed multiple scattered liver lesions and a sacral mass. Endometrial cancer suggested as primary source based on appearance of uterus on CT. General surgery was consulted, and further workup included a CT of the chest, which was positive for lung metastases. Dr Dorothy Jones performed a colonscopy on 02/11, which showed no suspicious lesions. Dr Jones biopsied her abdominal mass on 02/13, and Dr Angelina Umana biopsied her cervix and uterus. Exam Vital Signs (past 8 hours): - 02/14/24 07:37 02/14/24 09:39 02/14/24 11:58 Temperature 97.7 F 97.6 F 97.5 F L Pulse Rate 78 78 83 Respiratory Rate 20 16 13 Blood Pressure 106/44 L 122/76 132/80 Pulse Oximetry 96 93 100 Oxygen Delivery Method Room Air Simple Mask Oxygen Flow Rate 0 6 02/14/24 12:03 02/14/24 12:05 02/14/24 12:08 Temperature Pulse Rate 78 75 78 Respiratory Rate 13 14 12 Blood Pressure 145/87 H 139/81 146/87 H Pulse Oximetry 100 100 100 Oxygen Delivery Method Simple Mask Simple Mask Simple Mask Oxygen Flow Rate 6 6 6 02/14/24 12:13 02/14/24 12:18 02/14/24 12:23 Temperature Pulse Rate 80 81 74 Respiratory Rate 13 12 12 Blood Pressure 144/84 H 146/84 H 110/67 Pulse Oximetry 100 97 95 Oxygen Delivery Method Nasal Cannula Nasal Cannula Nasal Cannula Oxygen Flow Rate 2 2 02/14/24 12:30 02/14/24 12:45 02/14/24 13:00 Temperature Pulse Rate 82 83 84 Respiratory Rate 13 12 12 Blood Pressure 113/62 115/60 102/56 L Pulse Oximetry 99 95 97 Oxygen Delivery Method Nasal Cannula Nasal Cannula Nasal Cannula Oxygen Flow Rate 2 2 2 02/14/24 13:15 Temperature 97.0 F L Pulse Rate 80 Respiratory Rate 12 Blood Pressure 103/57 L Pulse Oximetry 98 Oxygen Delivery Method Nasal Cannula Oxygen Flow Rate 2 Oxygen Delivery Method Nasal Cannula Oxygen Flow Rate 2 Narrative Exam Narrative: See progress note from earlier today. Objective Labs 02/10/24 06:24 02/12/24 13:40 [facility] Medical History History of COVID-19 Acid reflux Panic attacks Lumbar post-laminectomy syndrome Microcytic anemia Pelvic floor dysfunction in female Genitourinary syndrome of menopause BMI 38.0-38.9,adult Fibromyalgia Tinnitus Vaginal atrophy Painful menstrual periods (1969) History of recurrent ear infection (1960) Glaucoma (2009) Fatty tumor Plantar warts (2002) Arthritis (2004) Shoulder pain (2008) Lumbar spine pain (2004) Foot pain (2012) Chronic back pain (2004) Suicide attempt (2004) Pneumothorax Hearing loss (1961) Anemia (1986) Chicken pox (1960) Measles (1961) Hayfever Morbid obesity with body mass index (BMI) of 40.0 to 49.9 (08/07/16) Essential hypertension (08/07/16) Gastroesophageal reflux disease without esophagitis (04/03/16) Dorsalgia (06/16/11) Obstructive sleep apnea syndrome (06/16/11) Generalized anxiety disorder (06/16/11) Mixed hyperlipidemia (06/16/11) Attention-deficit hyperactivity disorder, predominantly inattentive type Post traumatic stress disorder (PTSD) Surgical History History of colonoscopy (04/11/18) History of ear surgery History of thumb surgery (2009) History of back surgery (2007) History of carpal tunnel repair (2010) Status post delivery (01/27/90) Status post tonsillectomy and adenoidectomy Family History Father Cancer Hypertension High cholesterol Grandfather Cancer Mental health problem Depression Leukemia Grandmother Mental health problem Alzheimer's dementia Grandfather Diabetes mellitus Hypertension High cholesterol Grandmother Heart disease Social History marital status: number of children: 2 household members: none lives independently: Yes caregiver/support person: No housing: apartment pets and animals: Yes education level: college occupational status: disabled 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/yarsani: [employer] travel history: recent leisure activities: exercise, art and other Smoking Status: Former smoker Tobacco: How many years used: 0 quit status: quit date established second hand exposure: Yes alcohol intake: current substance use type: does not use Discharge Assessment & Plan Assessment and Plan Assessment: L3-4, L4-5 postlaminectomy syndrome and foraminal stenosis; s/p L3-4, L4-5 lumbar fusion and posterior segmental instrumentation Cancer, likely uterine or endometrial primary, with metastases to lungs, liver, and sacrum Plan of Treatment: 1) Discussed case w/ Shoshana Umana and Robert immediately after surgery; from their standpoint, pt is fine for discharge. Met w/ pts daughter, Shira, in pts room. Pt has been eating and voiding without difficulty, transferring and amublating w/ minimal help. Shira feels confident in taking her mother home today.Discharge home after afternoon PT if both pt and daughter feel comfortable with her progress. 2) Follow up w/ ortho for standard post-op check and Dr Luque. Dr Luque has sent referrals to both medical oncology and radiation oncology. 3) ASA 81mg daily for VTE prophylaxis per Dr Luque. This was ok'd by Dr Call as her risk of developing a life-threatening VTE currently outweighs her risk of symptomatic epidural hematoma. Discharge Plan Discharge Plan Patient Disposition: Home Discharge orders & Medications Prescriptions: New ondansetron 4 mg Tablet,Disintegrating 4 mg sublingual Q4-6H PRN (Reason: Nausea) Qty: 30 0RF oxycodone 5 mg Tablet 5 mg PO Q4-6H PRN (Reason: Pain, Moderate (4-6)) Qty: 30 0RF Rx Instructions: ONLY take for pain not well-controlled by normal hydrocodone. aspirin 81 mg tablet,delayed release (DR/EC) 81 mg PO DAILY Qty: 90 0RF polyethylene glycol 3350 17 gram/dose powder 17 g PO BID PRN (Reason: constipation) Qty: 510 0RF methylprednisolone [Methylpred DP] 4 mg tablets,dose pack See Rx Instructions .ROUTE .COMPLEX Qty: 21 0RF Rx Instructions: orally per package directions. Take ONLY if having severe left leg pain. Continued bupropion HCl [Wellbutrin XL] 300 mg tablet extended release 24 hr 300 mg PO Q DAY Qty: 90 3RF trazodone 50 mg tablet 100 mg PO BEDTIME Qty: 180 3RF (DME) Disabled Parking See Rx Instructions .ROUTE .MEDSUPPLY Qty: 1 0RF Rx Instructions: Patient qualifies for disabled parking as per the attached form. hydrochlorothiazide 25 mg tablet 25 mg PO DAILY Qty: 90 3RF hydrocodone-acetaminophen 10-325 mg tablet 1 - 2 tab PO TID MDD max 6 tabs/day PRN (Reason: pain) Qty: 60 0RF Rx Instructions: Must last 10 days docusate sodium 100 mg capsule 100 mg PO BID Qty: 180 3RF potassium chloride 20 mEq tablet extended release 20 meq PO DAILY Qty: 90 3RF estradiol [Estrace] 0.01 % (0.1 mg/gram) cream 1 appful vaginal DAILY Qty: 42.5 3RF Rx Instructions: place 1.5cm (1g) cream to area as directed by your doctor nightly for 14 days, then decrease frequency to twice weekly thereafter omeprazole 40 mg capsule,delayed release(DR/EC) 40 mg PO BID ramelteon [Rozerem] 8 mg tablet 8 mg PO HS Patient Comments: Pt states not currently taking acetaminophen 650 mg Tablet Extended Release 650 mg PO QID hydrocortisone [Preparation H Hydrocortisone] 1 % Cream 1 applic TOPICAL QID PRN (Reason: Hemorrhoids) mupirocin 2 % ointment 1 applic TOPICAL BID methylphenidate HCl [Metadate CD] 10 mg capsule, ER biphasic 30-70 10 mg PO QAM (DME) ResMed AirSense 10 See Rx Instructions .Route .MEDSUPPLY Rx Instructions: CPAP Min: 8 Max: 12 DME: STEVEN: 04/08/21 Follow up/Referrals: Boyd Call MD [Physician] - 02/24/24 2:30 pm (Follow up w/ Ivonne Cardozo PA-C, at [facility] office in [place].) Andrés Luque MD [Primary Care Provider] - Diet/Activity/Treatments Diet: Diet as Tolerated Activity: No deep bending or twisting at the waist. No lifting more than 10 pounds. Cold/Heat Therapy: Heating pad to low back as needed for pain. Skin/Wound/Dressing Care Report to your healthcare provider any signs of infection, such as:: chills, fever, night sweats, unusual drainage and unusual redness Dressing: May shower. Keep dressing as dry as possible. If dressing becomes wet or dirty, may remove and replace with clean, dry gauze. No bathing or otherwise soaking incision. Do not apply any creams, lotions or ointments to incision. Visit Report/Discharge Packet Instructions: DI for Transforaminal Lumbar Interbody Fusion Stand Alone Forms: Patient Portal/API, Stroke Signs & Symptoms, Surgery Discharge Discharge Data Primary Care Provider: Andrés Luque VTE Deep Vein Thrombosis/Pulmonary Embolism Present on Admission: No
[2024-02-14] MEDS: DOCUSATE 100 MG CAPSULE PO (14:37)
[2024-02-14] MEDS: POTASSIUM CHLORIDE 20 MEQ TAB PO (14:37)
[2024-02-14] MEDS: PANTOPRAZOLE DR 40 MG TABLET PO (14:37)
[2024-02-14] MEDS: buPROPion XL 150 MG TAB 300 MG PO (14:38)
[2024-02-14] MEDS: ACETAMINOPHEN 325 MG TABLET 650 MG PO (14:38)
[2024-02-14] MEDS: SODIUM CHLORIDE 0.9% FLUSH 10 ML IV (14:39)
[2024-02-14] MEDS: PREGABALIN 75 MG CAPSULE PO (14:39)
--- NOTE | 2024-02-14 14:53 | CM.DPNOTE ---
Addendum entered by URSULA Chester 02/14/24 15:27: Per [facility] , able to accept. only need signed dc summary. SL Original Note: DCP Note AUTOMATION MECHANIC reviewed EMR. Per provider grayson/Lyndsay/Robert/Ene, cleared for dc home with dtr support today. Per Ene note, will place oncology referrals and plan for pt to f/u with him OP. Ene recommends HH for pt at this time. Per PT/OT, continue to rec HH. PT rec walker for home use, AUTOMATION MECHANIC placed order and gave PT order and FS. AUTOMATION MECHANIC met with pt and dtr Ja in room. Confirm plan for home today. Dtr reports she will be staying with pt for 2 weeks. Agreeable to HH. Preference is [facility]. Hope for RN/PT/OT/SENIOR NET DEVELOPER. AUTOMATION MECHANIC answered IMM Medicare questions to best of ability. AUTOMATION MECHANIC gave pt copy of brochure. AUTOMATION MECHANIC spoke with [facility] . Agreed to review. AUTOMATION MECHANIC emailed her FS/H&P/Consult notes/DC sum draft, PT/OT notes, HH order, and f2f. Per [facility], likely able to accept, openings /Wed/Th this week in [place] for SOC. P: home today with dtr support and [facility] to follow for RN/OT/PT/SENIOR NET DEVELOPER. CM team will continue to follow as needed URSULA Chester
--- NOTE | 2024-02-14 15:16 | PT.IPTN ---
Current Diagnoses Secondary malignant neoplasm of unspecified site (02/09/24) Spondylolisthesis, lumbar region (02/09/24) Postlaminectomy syndrome, not elsewhere classified (02/09/24) Other specified noninflammatory disorders of uterus (02/09/24) Arthrodesis status (02/09/24) Surgery Performed Operation Date: 02/09/24 11:15 Actual Procedures p L3-4, L4-5 TRANSFORAMINAL LUMBAR INTERBODY FUSION WITH POSTERIOR INSTRUMENTATION WITH ROBOT - Boyd Call MD Operation Date: 02/12/24 09:30 Actual Procedures p Colonoscopy AND VAGINAL EXAM - Dorothy Jones MD Operation Date: 02/14/24 09:30 Actual Procedures p Excisional biopsy lower abdomin wall nodules(Left) - Dorothy Jones MD s D & C HYSTEROSCOPY, CERVICAL BIOPSY, EXAM UNDER ANESTHESIA - Mandie Umana MD Physical Therapy Treatment Note M2 PT-IP Current Condition Start: 02/10/24 09:25 Freq: NEEDED Status: Active Protocol: Document 02/10/24 09:25 MB (Rec: 02/10/24 10:13 MB [id number]) Physical Therapy Current Condition Current Condition Evaluation Date 02/10/24 Treatment Diagnosis Lumbar surgery M3 PT-IP Subjective Start: 02/10/24 09:25 Freq: NEEDED Status: Active Protocol: Document 02/14/24 14:30 MB (Rec: 02/14/24 15:15 MB [id number]) Subjective Physical Therapy Visit Type Type Treatment Note Visit Start Time 14:30 Visit Stop Time 15:00 Number of VEHICLE MECHANIC Visits 0 Physical Therapy Visit Comments Patient Comments Pt asks to get a RW for home use and then asks to walk in hallway with PT. Therapy Pain Assessment Pain When Pain Assessed At Rest Pain Present Pain Present Pain Reported Location back Scale Used Pt does not rate M4 PT-IP Mobility and Gait Start: 02/10/24 09:25 Freq: NEEDED Status: Active Protocol: Document 02/14/24 14:30 MB (Rec: 02/14/24 15:15 MB [id number]) PT-Bed Mobility Assessment Rolling Type of Rolling Log Rolling Level of Assist Independent Supine to Sit Supine to Sit Independent Scooting Scooting to Edge of Bed Independent PT-Transfer Assessment Sit to and From Stand Sit to and from Stand Independent,1 Person Assistance,Use of Upper Extremities Equipment Transfer Assistive Device Gait Belt,Front Wheeled Walker ,4 Wheeled Walker Orthotic/Prosthetic Devices or Brace: No Transfers Transfer Destination Chair Transfer Technique Ambulation Transfer Ability Level of Assist Independent,Standby Assistance ,Use of Upper Extremities Comments Mobility Comments PT gets order for RW and then pt asks for gait training in hallway Gait Assessment Gait Gait Assistance Required: Standby Assistance,1 Person Assist Distance (Feet) 100 Able to Maintain Weight Bearing Status Yes During Gait Assistive Devices Assistive Device Gait Belt,Front Wheeled Walker ,4 Wheeled Walker Orthotic/Prosthetic Devices or Brace: No Gait Deviations General Gait Pattern Antalgic,Decreased Feet Clearance,Step-to Gait,Wide Based Gait Factors Limiting Gait Function Factors Limiting Gait Function Decreased Activity Tolerance, Decreased Strength,Limited Range of Motion,Pain,Poor Balance Comments Gait Comments Pt gait trains 100' with RW in hallway and 100' with 4WW in hallway with slow speed and reports that she has less pain with mobility PT-Balance Assessment Sitting Balance and Reactions Static Sitting Balance Ability Good Dynamic Sitting Balance Ability Good Standing Balance and Reactions Static Standing Balance Ability Good Dynamic Standing Balance Ability Good Device Used RW, 4WW M5 PT-IP Objective Assessments Start: 02/10/24 09:25 Freq: NEEDED Status: Active Protocol: Document 02/10/24 09:25 MB (Rec: 02/10/24 10:13 MB [id number]) Orientation Orientation/Cognition Level of Alertness Alert Orientation Name,Place,Situation Language Function Ability No Deficits Noted Safety Awareness Understands Safety Issues Memory Description No Deficits Noted Comments PT does not ask all of orientation questions as OT is asking questions when PT steps out to get recliner and pt appears A&O, can defer to OT note for further details Gross Range of Motion Upper Extremity ROM Impairments Defer to OT Lower Extremity ROM Impairments Functional movement in bed and with transfers and gait but increased pain in back with attempted B HS in the bed before getting up, so limited by pain post-op. Abdominal pannus limits hip flexion B in sitting EOB. Strength Lower Extremity Strength Assessment Within Functional Limits Coordination Assessment Gross Coordination Gross Coordination WNL Sensation Assessment Sensation Gross Sensation WNL Comments Sensation Comments Pt reports previous left sciatica symptoms are better though with ankle DF with leg straight in supine, she does feel tension in calf and posterior leg Muscle Tone Muscle Tone WNL Yes M6 PT-IP Treatment Start: 02/10/24 09:25 Freq: NEEDED Status: Active Protocol: Document 02/14/24 14:30 MB (Rec: 02/14/24 15:15 MB [id number]) Physical Therapy Treatment Education Education Provided Precautions,Safety Other Treatments Other Treatment Performed AD discussion, obtaining order and got walker for pt M7 PT-IP Assessment and Plan Start: 02/10/24 09:25 Freq: NEEDED Status: Active Protocol: Document 02/14/24 14:30 MB (Rec: 02/14/24 15:15 MB [id number]) PT Summary Assessment and Plan Potential Rehabilitation Potential Fair Summary Impairments Pain,ROM,Strength,Balance,Bed Mobility,Transfers,Gait, Activity Tolerance Assessment Summary Pt does well with bed mobility , transfers, and gait with RW and 4WW today. Pt reports that her pain is less with mobility. She will d/c home with her daughter assistance today. Frequency of Treatment Frequency Of Treatment Discharge Precautions Lumbar Precautions Log Roll,No Twisting,Limit Bending,Lifting Restriction of 10 lbs,Gait Belt above Incisional Area Weight Bearing Status Weight Bearing Status Weight Bear as Tolerated Recommendations To Nursing Amount of Assist Needed 1 Person Assist Discharge Recommendations PT Discharge Recommendations Home with 08/02 Assist Available,Home Health Transportation Needs at Discharge Private Vehicle
--- NOTE | 2024-02-14 15:21 | OT.IPNOTE ---
Attempted to see pt x3 today. Pt initially wanting to eat, then requesting to walk with P.T., just now pt is in with family and preparing for discharge. Will hold and follow if pt stays.
[2024-02-14] MEDS: ALPRAZolam 0.25 MG TABLET 0.5 MG PO (17:26)
--- NOTE | 2024-03-02 14:01 | PC.NURSE ---
LATE NOTE, 02/10/24 AT APPROX 1820 PATIENT WAS GIVEN 10 MG OXYCODONE PO FOR 02/25 BACK PAIN
== END 2024-02-14 18:00 | disposition home health service (06) | DRG 454 ==
PROVIDERS: Obstetrics & Gynecology; Physician Assistant Surgical; Surgery; Admitting Provider Orthopaedic Surgery Orthopaedic Surgery of the Spine; Family Provider Internal Medicine; PCP Internal Medicine; Referring Provider Orthopaedic Surgery Orthopaedic Surgery of the Spine; Visit Provider Orthopaedic Surgery Orthopaedic Surgery of the Spine
PROC: 0SG10AJ Fusion of 2 or more Lumbar Vertebral Joints with Interbody Fusion Device, Posterior Approach, Anterior Column, Open Approach (ICD-10-PCS; principal; 2024-02-09 11:15)
PROC: 0DJD8ZZ Inspection of Lower Intestinal Tract, Via Natural or Artificial Opening Endoscopic (ICD-10-PCS; CPT 45378; principal; 2024-02-12 09:30)
PROC: 0JB80ZX Excision of Abdomen Subcutaneous Tissue and Fascia, Open Approach, Diagnostic (ICD-10-PCS; principal; 2024-02-14 09:30)
PROC: 0UDB8ZX Extraction of Endometrium, Via Natural or Artificial Opening Endoscopic, Diagnostic (ICD-10-PCS; CPT 57410; 2024-02-14 09:30)
DX: M96.1 Postlaminectomy syndrome, not elsewhere classified (principal); C78.01 Secondary malignant neoplasm of right lung; C79.51 Secondary malignant neoplasm of bone; C78.7 Secondary malignant neoplasm of liver and intrahepatic bile duct; E46 Unspecified protein-calorie malnutrition; C78.02 Secondary malignant neoplasm of left lung; C79.2 Secondary malignant neoplasm of skin; M43.16 Spondylolisthesis, lumbar region; M48.061 Spinal stenosis, lumbar region without neurogenic claudication; M54.16 Radiculopathy, lumbar region; M79.662 Pain in left lower leg; N88.8 Other specified noninflammatory disorders of cervix uteri; I10 Essential (primary) hypertension; I95.9 Hypotension, unspecified; F41.9 Anxiety disorder, unspecified; F43.10 Post-traumatic stress disorder, unspecified; E66.9 Obesity, unspecified; D50.9 Iron deficiency anemia, unspecified; G47.30 Sleep apnea, unspecified; C54.1 Malignant neoplasm of endometrium; K21.9 Gastro-esophageal reflux disease without esophagitis; Z68.36 Body mass index [BMI] 36.0-36.9, adult; Z87.891 Personal history of nicotine dependence
CPT/HCPCS: 36415; 71260; 72100; 74177; 76000; 76830; 76856; 80048; 82378; 85014; 85018; 86301; 93971; 97116; 97161; 97165; 97530; 97535; C1713; C9290; J0171; J0330; J0690; J1100; J1170; J2175; J2250; J2405; J2704; J2765; J3010; J3410; Q9967

== ENCOUNTER 2024-02-16 14:33 | Inpatient (IN) | payer MEDICARE, MEDICAID, SELFPAY ==
[2024-02-09 20:12] VITALS: BMI 36.8
[2024-02-16 14:44] VITALS: BP 145/67; PULSE 84; RESP 20; TEMP 36.4; O2SAT 99; BMI 36.8
[2024-02-16] MEDS: HYDROCODONE/ACET 5/325 TABLET 2 TAB PO (15:04)
[2024-02-16] MEDS: ALPRAZolam 0.25 MG TABLET 0.5 MG PO (15:04)
--- NOTE | 2024-02-16 15:44 | PC.NURSE ---
Pt reevaluated. Able to walk to bathroom with walker. Pt continues to c/o pain, but reports she's starting to feel more relaxed and drowsy. Lights off per pt request. Warm blanket provided to patient. Daughter remains at the bedside.
[2024-02-16 16:02] LABS: Add Manual Diff / Slide Review NO; Basophils Absolute Auto 100 /uL (0-100); Basophils Percent Auto 0.7 % (0-2); Eosinophils Absolute Auto 200 /uL (0-450); Eosinophils Percent Auto 2.3 % (2-4); Hematocrit 27.3 % (36-46); Hemoglobin 8.6 g/dL (12.0-16.0); Lymphocytes Absolute Auto 2300 /uL (1100-4500); Mean Corpuscular HGB Conc 31.4 % (30-36); Mean Corpuscular Hemoglobin 23.6 PG (26-34); Mean Corpuscular Volume 75.3 fL (80-100); Monocytes Absolute Auto 1000 /uL (0-900); Monocytes Percent Auto 9.6 % (3-14); Neutrophils Absolute Auto 6500 /uL (1500-7000); Neutrophils Percent Auto 64.4 % (50-75); Platelet Count 417 X10^3/uL (150-400); Red Blood Cell Count 3.63 X10^6/uL (4.0-5.2); Red Cell Distribution Width 18.8 % (11.6-14.8); White Blood Cell Count 10.1 X10^3/uL (4.5-11.0)
[2024-02-16 16:03] LABS: Bacteria Urine None Seen; Culture Indicated Urine Cult Not Indicated; RBC Urine 0-1/HPF (0-5/HPF); Squamous Epithelial Cell Urine 0-1 /HPF (0-5/HPF); Transitional Epi Cells Urine 0-1/HPF (0-5/HPF); Urine Volume 10mL (spun); WBC Urine None Seen (0-5/HPF)
[2024-02-16 16:04] LABS: Acetaminophen < 10 ug/mL (10-30); Alanine Aminotransferase 32 IU/L (<35); Albumin 3.5 g/dL (3.5-5.0); Albumin Globulin Ratio 1.2 (1.0-2.8); Alkaline Phosphatase 107 U/L (38-126); Aspartate Aminotransferase 36 IU/L (14-36); BUN Creatinine Ratio 15.6 (6-22); Bilirubin Total 0.5 mg/dL (0.2-1.3); Blood Urea Nitrogen 10 mg/dL (7-17); Calcium 8.7 mg/dL (8.4-10.2); Carbon Dioxide 29 mmol/L (22-32); Chloride 101 mmol/L (98-107); Estimated Glomerular Filt Rate > 60 mL/min (>60); Ethanol (ETOH) < 10 mg/dL; Globulin 2.9 g/dL (1.7-4.1); Glucose 93 mg/dL (80-110); HEMOLYSIS < 15 (0-50); Potassium 3.8 mmol/L (3.4-5.1); Salicylate < 1.0 mg/dL (<20); Sodium 136 mmol/L (137-145); Total Protein 6.4 g/dL (6.3-8.2)
[2024-02-16 16:05] LABS: Ur Creatinine Normal (Normal); Ur Specific Gravity Normal (Normal); Urine Amphetamines Negative (Negative); Urine Barbiturates Negative (Negative); Urine Benzodiazepines Positive (Negative); Urine Cocaine Negative (Negative); Urine MDMA Negative (Negative); Urine Methadone Negative (Negative); Urine Methamphetamines Negative (Negative); Urine Opiates Positive (Negative); Urine Oxycodone Positive (Negative); Urine Phencyclidine Negative (Negative); Urine THC Negative (Negative); Urine Tricyclic Antidepressant Negative (Negative); Urine pH Normal (Normal)
[2024-02-16 16:36] LABS: Free T4, Direct Thyroxine 0.97 ng/dL (0.78-2.19)
[2024-02-16 16:50] LABS: Thyroid Stimulating Hormone 1.06 uIU/mL (0.47-4.68)
--- NOTE | 2024-02-16 17:31 | ED_ITS ---
HPI - Back Pain/Injury <Sae Fernandez MD - Last Filed: 02/19/24 13:45> General Chief Complaint: Back Pain/Injury Stated Complaint: Pain, post sx problem Time Seen by Provider: 02/16/24 17:24 Source: patient and family History of Present Illness HPI Narrative: Patient here with daughter. With suicide ideation. Patient had significant surgeries in the past 1 week. Including laminectomy as well as uterine mass surgery as well as colonoscopy. She states the pain is too bearable and she wants to end her life. She is here with family. She is already on Percocet and hydrocodone. Her methocarbamol is not working. She has pain in the left gluteal area that radiates down to her foot. The pain she states is unbearable. No loss of bowel bladder control. Patient seen by Dr. Umana as well as Dr. Rice for her procedures. Related Data Home Medications Medication Instructions Recorded Confirmed [facility] [employer]ense 10 05/20/22 02/16/24 acetaminophen 650 mg 650 mg PO QID 01/31/24 02/16/24 tablet,extended release omeprazole 40 mg capsule,delayed 40 mg PO BID 01/31/24 02/16/24 release hydrocortisone 1 % topical cream 1 applic topical QID PRN 02/09/24 02/16/24 (Preparation H Hydrocortisone) Hemorrhoids methylphenidate HCl 10 mg biphasic 10 mg PO QAM 02/09/24 02/16/24 30-70 capsule,extended release (Metadate CD) mupirocin 2 % topical ointment 1 applic topical BID 02/09/24 02/16/24 Previous Rx's Medication Instructions Recorded Disabled Parking #1 ea 11/28/21 docusate sodium 100 mg capsule 100 mg PO BID #180 caps 11/13/22 bupropion HCl 300 mg 24 hr tablet, 300 mg PO Q DAY #90 tabs 06/23/23 extended release (Wellbutrin XL) trazodone 50 mg tablet 100 mg (2 x 50 mg) PO BEDTIME #180 06/23/23 tabs hydrochlorothiazide 25 mg tablet 25 mg PO DAILY #90 tabs 06/24/23 potassium chloride 20 mEq 20 meq PO DAILY #90 tabs 11/12/23 tablet,extended release estradiol 0.01% (0.1 mg/gram) 1 appful vaginal DAILY #42.5 grams 11/24/23 vaginal cream (Estrace) aspirin 81 mg tablet,delayed 81 mg PO DAILY #90 tabs 02/14/24 release ondansetron 4 mg disintegrating 4 mg sublingual Q4-6H PRN Nausea 02/14/24 tablet #30 tabs alprazolam 0.5 mg tablet (Xanax) 0.5 mg PO BID-TID anxiety #20 tabs 02/18/24 fentanyl 25 mcg/hr transdermal 1 patch transdermal Q72H #5 ea 02/18/24 patch methylprednisolone 4 mg tablet 4 - 20 mg (1 - 5 x 4 mg) PO DAILY 02/18/24 #15 tabs oxycodone 5 mg tablet 5 - 10 mg (1 - 2 x 5 mg) PO Q4-6H 02/18/24 PRN Pain, Moderate (4-6) #45 tabs polyethylene glycol 3350 17 17 g PO DAILY constipation #510 02/18/24 gram/dose oral powder grams Allergies Allergy/AdvReac Type Severity Reaction Status Date / Time penicillin G Allergy Mild RASH Verified 02/16/24 14:58 doxycycline AdvReac Mild N/V Verified 02/16/24 14:58 Sulfa (Sulfonamide AdvReac Mild ACT LIKE Verified 02/16/24 14:58 Antibiotics) I'M DRUNK/SICK gabapentin [GABAPENTIN] AdvReac Unknown Drowsy Verified 02/16/24 14:58 eggplant AdvReac Mild stinging Uncoded 02/03/24 10:49 needle feeling on tongue Review of Systems <Sae Fernandez MD - Last Filed: 02/19/24 13:45> Review of Systems Narrative: GENERAL: negative chills, fatigue, malaise, fever, sweats. HEENT: negative sinus pain, ear pain, sore throat RESPIRATORY: negative dyspnea, cough CARDIOVASCULAR: negative chest pain, palpitations GASTROINTESTINAL: negative nausea, vomiting, abdominal pain : negative dysuria, frequency, hematuria MUSCULOSKELETAL: Positive muscle or bony pain SKIN: negative rash, skin lesions NEUROLOGIC: negative weakness, numbness Psychiatry: Positive SI Patient History <Sae Fernandez MD - Last Filed: 02/19/24 13:45> Medical History History of COVID-19 Acid reflux Panic attacks Lumbar post-laminectomy syndrome Microcytic anemia Pelvic floor dysfunction in female Genitourinary syndrome of menopause BMI 38.0-38.9,adult Fibromyalgia Tinnitus Vaginal atrophy Painful menstrual periods (1969) History of recurrent ear infection (1960) Glaucoma (2009) Fatty tumor Plantar warts (2002) Arthritis (2004) Shoulder pain (2008) Lumbar spine pain (2004) Foot pain (2012) Chronic back pain (2004) Suicide attempt (2004) Pneumothorax Hearing loss (1961) Anemia (1986) Chicken pox (1960) Measles (1961) Hayfever Morbid obesity with body mass index (BMI) of 40.0 to 49.9 (08/07/16) Essential hypertension (08/07/16) Gastroesophageal reflux disease without esophagitis (04/03/16) Dorsalgia (06/16/11) Obstructive sleep apnea syndrome (06/16/11) Generalized anxiety disorder (06/16/11) Mixed hyperlipidemia (06/16/11) Attention-deficit hyperactivity disorder, predominantly inattentive type Post traumatic stress disorder (PTSD) Surgical History History of colonoscopy (04/11/18) History of ear surgery History of thumb surgery (2009) History of back surgery (2007) History of carpal tunnel repair (2010) Status post delivery (01/27/90) Status post tonsillectomy and adenoidectomy Family History Father Cancer Hypertension High cholesterol Grandfather Cancer Mental health problem Depression Leukemia Grandmother Mental health problem Alzheimer's dementia Grandfather Diabetes mellitus Hypertension High cholesterol Grandmother Heart disease Social History marital status: number of children: 2 household members: none lives independently: Yes caregiver/support person: No housing: apartment pets and animals: Yes education level: college occupational status: disabled 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 EYES: Pupils equal round ENT: Mucous membranes moist. NECK: Trachea midline. CARDIOVASCULAR: Regular rate and rhythm RESPIRATORY: Clear to auscultation. Breath sounds equal bilaterally. No wheezes, rales, or rhonchi. GASTROINTESTINAL: Abdomen soft, mild lower quadrant/half tenderness. But no pain out of portion exam. EXTREMITIES: No gross deformities. Tender to the left gluteal area with spasm and increased pain with straight leg raise attempts. Pain with flexion- extension of the hips and knees. No palpable cords to the calves. Calves are nontender. BACK: No flank tenderness. NEURO: AOx4. Clear speech. Light touch intact to bilateral legs. Able to flex and extend at the hips and knees and ankles SKIN: Warm and dry PSYCH: Patient is cooperative however is anxious, positive SI. Initial Vital Signs Initial Vital Signs: Vital Signs Temperature 97.6 F 02/16/24 14:44 Pulse Rate 84 02/16/24 14:44 Respiratory Rate 20 02/16/24 14:44 Blood Pressure 145/67 H 02/16/24 14:44 Pulse Oximetry 99 02/16/24 14:44 Oxygen Delivery Method Room Air 02/16/24 14:44 <Aria Mc DO - Last Filed: 02/17/24 01:19> Initial Vital Signs Initial Vital Signs: Vital Signs Temperature 97.6 F 02/16/24 14:44 Pulse Rate 84 02/16/24 14:44 Respiratory Rate 20 02/16/24 14:44 Blood Pressure 145/67 H 02/16/24 14:44 Pulse Oximetry 99 02/16/24 14:44 Oxygen Delivery Method Room Air 02/16/24 14:44 Course <Sae Fernandez MD - Last Filed: 02/19/24 13:45> Orders Ordered: Discontinued Medications Acetaminophen (Acetaminophen 325 Mg Tablet) 650 mg PO Q6H PRN PRN Reason: Fever/Mild Pain (1-3) Last Admin: 02/18/24 06:12 Dose: 650 mg Documented By: Admin: 02/17/24 21:51 Dose: 650 mg Documented By: Admin: 02/17/24 14:59 Dose: 650 mg Documented By: JUAN Hydrocodone Bitart/Acetaminophen (Hydrocodone/Acet 5/325 Tablet) 2 tab PO NOW ONE Stop: 02/16/24 15:00 Last Admin: 02/16/24 15:04 Dose: 2 tab Documented By: DEREJE Alprazolam (Alprazolam 0.25 Mg Tablet) 0.5 mg PO NOW ONE Stop: 02/16/24 15:00 Last Admin: 02/16/24 15:04 Dose: 0.5 mg Documented By: DEREJE Aspirin (Aspirin Ec 81 Mg Tablet) 81 mg PO DAILY [facility] Last Admin: 02/18/24 08:51 Dose: 81 mg Documented By: Admin: 02/17/24 08:37 Dose: 81 mg Documented By: JUAN Bupropion HCl (Bupropion Xl 150 Mg Tab) 300 mg PO DAILY [facility] Last Admin: 02/18/24 08:50 Dose: 300 mg Documented By: Admin: 02/17/24 08:37 Dose: 300 mg Documented By: JUAN Dexamethasone (Dexamethasone 4 Mg Tablet) 4 mg PO BIDWM [facility] Last Admin: 02/17/24 16:55 Dose: 4 mg Documented By: Admin: 02/17/24 08:37 Dose: 4 mg Documented By: JUAN Diazepam (Diazepam 10 Mg/2 Ml Syringe) 5 mg IV NOW ONE Stop: 02/16/24 17:32 Last Admin: 02/16/24 17:43 Dose: 5 mg Documented By: Diazepam (Diazepam 5 Mg Tablet) 5 mg PO Q4HR PRN PRN Reason: Muscle Spasm Last Admin: 02/18/24 10:21 Dose: 5 mg Documented By: Admin: 02/18/24 06:11 Dose: 5 mg Documented By: Admin: 02/18/24 02:28 Dose: 5 mg Documented By: Admin: 02/17/24 21:52 Dose: 5 mg Documented By: Admin: 02/17/24 18:23 Dose: 5 mg Documented By: Admin: 02/17/24 08:37 Dose: 5 mg Documented By: JUAN Enoxaparin Sodium (Enoxaparin 40 Mg/0.4 Ml Syringe) 40 mg SUBCUT DAILY [facility] Last Admin: 02/18/24 08:50 Dose: 40 mg Documented By: Admin: 02/17/24 08:38 Dose: 40 mg Documented By: JUAN Fentanyl (Fentanyl 25 Mcg/Patch) 25 mcg TOP NOW ONE Stop: 02/17/24 07:39 Last Admin: 02/17/24 08:37 Dose: 25 mcg Documented By: JUAN Hydrochlorothiazide (Hydrochlorothiazide 25 Mg Tablet) 25 mg PO DAILY [facility] Last Admin: 02/18/24 08:51 Dose: 25 mg Documented By: Admin: 02/17/24 08:37 Dose: 25 mg Documented By: JUAN Hydromorphone HCl (Hydromorphone 1 Mg Inj) 1 mg IM NOW ONE Stop: 02/16/24 17:25 Last Admin: 02/16/24 17:36 Dose: Not Given Documented By: DEREJE Hydromorphone HCl (Hydromorphone 0.5 Mg Inj) 0.5 mg IV Q15MIN PRN PRN Reason: Pain, Severe (7-10) Last Admin: 02/16/24 18:56 Dose: 0.5 mg Documented By: DANIEL Hydromorphone HCl (Hydromorphone 1 Mg Inj) 1 mg IV Q2HR PRN PRN Reason: Pain, Moderate (4-6) Last Admin: 02/18/24 14:11 Dose: 1 mg Documented By: Admin: 02/18/24 07:52 Dose: 1 mg Documented By: Admin: 02/18/24 00:41 Dose: 1 mg Documented By: Admin: 02/17/24 22:49 Dose: 1 mg Documented By: Admin: 02/17/24 12:05 Dose: 1 mg Documented By: Admin: 02/17/24 06:23 Dose: 1 mg Documented By: Admin: 02/17/24 04:26 Dose: 1 mg Documented By: Admin: 02/16/24 22:25 Dose: 1 mg Documented By: TASHIA Hydromorphone HCl (Hydromorphone 1 Mg Inj) 1 mg IV NOW ONE Stop: 02/16/24 19:34 Last Admin: 02/16/24 19:39 Dose: 1 mg Documented By: DEREJE Hydromorphone HCl (Hydromorphone 0.5 Mg Inj) 0.5 mg IV Q2H PRN PRN Reason: Pain, Severe (7-10) Lactated Ringer's (Lactated Ringers) 1,000 mls @ 100 mls/hr IV CONT [facility] Last Infusion: 02/17/24 15:00 Dose: 0 mls/hr Documented By: Admin: 02/17/24 06:57 Dose: 100 mls/hr Documented By: Infusion: 02/17/24 06:57 Dose: Infused Documented By: Admin: 02/16/24 22:22 Dose: 100 mls/hr Documented By: TASHIA Ibuprofen (Ibuprofen 600 Mg Tablet) 600 mg PO Q6H [facility] Last Admin: 02/17/24 21:51 Dose: 600 mg Documented By: Admin: 02/17/24 14:58 Dose: 600 mg Documented By: Admin: 02/17/24 08:37 Dose: 600 mg Documented By: Admin: 02/17/24 04:25 Dose: 600 mg Documented By: Admin: 02/16/24 22:24 Dose: 600 mg Documented By: TASHIA Ibuprofen (Ibuprofen 600 Mg Tablet) 600 mg PO Q6H [facility] Last Admin: 02/18/24 10:21 Dose: 600 mg Documented By: Admin: 02/18/24 04:52 Dose: 600 mg Documented By: Admin: 02/18/24 04:16 Dose: Not Given Documented By: AIME Methylprednisolone (Methylprednisolone 4 Mg Tablet) 24 mg PO DAILY [facility] Last Admin: 02/18/24 08:50 Dose: 24 mg Documented By: PAUL Naloxone HCl (Naloxone 0.4 Mg/Ml Vial) 0.2 mg IV Q2MIN PRN PRN Reason: Opiate Reversal Non-Formulary Medication (Omeprazole) 40 mg PO BID [facility] Non-Formulary Medication (Ramelteon [Rozerem]) 8 mg PO HS [facility] Methylphenidate [ Metadate Cd] 10mg Cap Er 10 mg PO DAILY [facility] Last Admin: 02/18/24 08:51 Dose: Not Given Documented By: Admin: 02/17/24 08:38 Dose: Not Given Documented By: JUAN Ondansetron HCl (Ondansetron 4 Mg/2 Ml Inj) 4 mg IV NOW ONE Stop: 02/16/24 18:44 Last Admin: 02/16/24 18:46 Dose: 4 mg Documented By: Ondansetron HCl (Ondansetron 4 Mg/2 Ml Inj) 4 mg IV Q4HR PRN PRN Reason: Nausea And Vomiting Last Admin: 02/16/24 22:48 Dose: 4 mg Documented By: TASHIA Oxycodone HCl (Oxycodone Ir 5 Mg Tablet) 5 mg PO Q3H PRN PRN Reason: Pain, Moderate (4-6) Oxycodone HCl (Oxycodone Ir 5 Mg Tablet) 10 mg PO Q3HR PRN PRN Reason: Pain, Severe (7-10) Last Admin: 02/18/24 10:21 Dose: 10 mg Documented By: Admin: 02/18/24 06:12 Dose: 10 mg Documented By: Admin: 02/18/24 02:28 Dose: 10 mg Documented By: Admin: 02/17/24 21:50 Dose: 10 mg Documented By: Admin: 02/17/24 16:55 Dose: 10 mg Documented By: JUAN Pantoprazole Sodium (Pantoprazole Dr 40 Mg Tablet) 40 mg PO BIDAC [facility] Last Admin: 02/18/24 06:11 Dose: 40 mg Documented By: Admin: 02/17/24 16:55 Dose: 40 mg Documented By: Admin: 02/17/24 06:23 Dose: 40 mg Documented By: TASHIA Polyethylene Glycol (Polyethylene Glycol 3350 17 Gm Powd.Pack) 17 gm PO DAILY [facility] Last Admin: 02/18/24 08:50 Dose: 17 gm Documented By: Admin: 02/17/24 08:39 Dose: 17 gm Documented By: JUAN Sennosides (Sennosides 8.6 Mg Tablet) 17.2 mg PO BEDTIME [facility] Last Admin: 02/17/24 21:52 Dose: 17.2 mg Documented By: Admin: 02/16/24 22:25 Dose: 17.2 mg Documented By: TASHIA Sodium Chloride (Sodium Chloride 0.9% Flush) 10 ml IV PRN PRN PRN Reason: Flush Last Admin: 02/18/24 00:42 Dose: 10 ml Documented By: Admin: 02/17/24 22:50 Dose: 10 ml Documented By: AIME Sodium Chloride (Sodium Chloride 0.9% Flush) 10 ml IV BID [facility] Last Admin: 02/18/24 08:52 Dose: 10 ml Documented By: Admin: 02/17/24 21:53 Dose: 10 ml Documented By: Admin: 02/17/24 08:39 Dose: Not Given Documented By: JUAN Trazodone HCl (Trazodone 50 Mg Tablet) 100 mg PO BEDTIME [facility] Last Admin: 02/17/24 21:52 Dose: 100 mg Documented By: Admin: 02/16/24 22:54 Dose: 100 mg Documented By: TASHIA Trazodone HCl (Trazodone 50 Mg Tablet) 100 mg PO BEDTIME [facility] Last Admin: 02/17/24 21:53 Dose: Not Given Documented By: AIME Zolpidem Tartrate (Zolpidem 5 Mg Tablet) 5 mg PO BEDTIME [facility] Last Admin: 02/17/24 21:53 Dose: Not Given Documented By: Admin: 02/16/24 22:25 Dose: Not Given Documented By: TASHIA Vital Signs Vital signs: Vital Signs - 8 hr 02/16/24 17:47 Pulse Rate 77 Respiratory Rate 18 Blood Pressure 132/64 Pulse Oximetry 97 Oxygen Delivery Method Room Air <Aria Mc, - Last Filed: 02/17/24 01:19> Orders Ordered: Discontinued Medications Acetaminophen (Acetaminophen 325 Mg Tablet) 650 mg PO Q6H PRN PRN Reason: Fever/Mild Pain (1-3) Last Admin: 02/18/24 06:12 Dose: 650 mg Documented By: Admin: 02/17/24 21:51 Dose: 650 mg Documented By: Admin: 02/17/24 14:59 Dose: 650 mg Documented By: JUAN Hydrocodone Bitart/Acetaminophen (Hydrocodone/Acet 5/325 Tablet) 2 tab PO NOW ONE Stop: 02/16/24 15:00 Last Admin: 02/16/24 15:04 Dose: 2 tab Documented By: DEREJE Alprazolam (Alprazolam 0.25 Mg Tablet) 0.5 mg PO NOW ONE Stop: 02/16/24 15:00 Last Admin: 02/16/24 15:04 Dose: 0.5 mg Documented By: DEREJE Aspirin (Aspirin Ec 81 Mg Tablet) 81 mg PO DAILY [facility] Last Admin: 02/18/24 08:51 Dose: 81 mg Documented By: Admin: 02/17/24 08:37 Dose: 81 mg Documented By: JUAN Bupropion HCl (Bupropion Xl 150 Mg Tab) 300 mg PO DAILY [facility] Last Admin: 02/18/24 08:50 Dose: 300 mg Documented By: Admin: 02/17/24 08:37 Dose: 300 mg Documented By: JUAN Dexamethasone (Dexamethasone 4 Mg Tablet) 4 mg PO BIDWM [facility] Last Admin: 02/17/24 16:55 Dose: 4 mg Documented By: Admin: 02/17/24 08:37 Dose: 4 mg Documented By: JUAN Diazepam (Diazepam 10 Mg/2 Ml Syringe) 5 mg IV NOW ONE Stop: 02/16/24 17:32 Last Admin: 02/16/24 17:43 Dose: 5 mg Documented By: Diazepam (Diazepam 5 Mg Tablet) 5 mg PO Q4HR PRN PRN Reason: Muscle Spasm Last Admin: 02/18/24 10:21 Dose: 5 mg Documented By: Admin: 02/18/24 06:11 Dose: 5 mg Documented By: Admin: 02/18/24 02:28 Dose: 5 mg Documented By: Admin: 02/17/24 21:52 Dose: 5 mg Documented By: Admin: 02/17/24 18:23 Dose: 5 mg Documented By: Admin: 02/17/24 08:37 Dose: 5 mg Documented By: JUAN Enoxaparin Sodium (Enoxaparin 40 Mg/0.4 Ml Syringe) 40 mg SUBCUT DAILY [facility] Last Admin: 02/18/24 08:50 Dose: 40 mg Documented By: Admin: 02/17/24 08:38 Dose: 40 mg Documented By: JUAN Fentanyl (Fentanyl 25 Mcg/Patch) 25 mcg TOP NOW ONE Stop: 02/17/24 07:39 Last Admin: 02/17/24 08:37 Dose: 25 mcg Documented By: JUAN Hydrochlorothiazide (Hydrochlorothiazide 25 Mg Tablet) 25 mg PO DAILY [facility] Last Admin: 02/18/24 08:51 Dose: 25 mg Documented By: Admin: 02/17/24 08:37 Dose: 25 mg Documented By: JUAN Hydromorphone HCl (Hydromorphone 1 Mg Inj) 1 mg IM NOW ONE Stop: 02/16/24 17:25 Last Admin: 02/16/24 17:36 Dose: Not Given Documented By: KLS Hydromorphone HCl (Hydromorphone 0.5 Mg Inj) 0.5 mg IV Q15MIN PRN PRN Reason: Pain, Severe (7-10) Last Admin: 02/16/24 18:56 Dose: 0.5 mg Documented By: DANIEL Hydromorphone HCl (Hydromorphone 1 Mg Inj) 1 mg IV Q2HR PRN PRN Reason: Pain, Moderate (4-6) Last Admin: 02/18/24 14:11 Dose: 1 mg Documented By: Admin: 02/18/24 07:52 Dose: 1 mg Documented By: Admin: 02/18/24 00:41 Dose: 1 mg Documented By: Admin: 02/17/24 22:49 Dose: 1 mg Documented By: Admin: 02/17/24 12:05 Dose: 1 mg Documented By: Admin: 02/17/24 06:23 Dose: 1 mg Documented By: Admin: 02/17/24 04:26 Dose: 1 mg Documented By: Admin: 02/16/24 22:25 Dose: 1 mg Documented By: TASHIA Hydromorphone HCl (Hydromorphone 1 Mg Inj) 1 mg IV NOW ONE Stop: 02/16/24 19:34 Last Admin: 02/16/24 19:39 Dose: 1 mg Documented By: DEREJE Hydromorphone HCl (Hydromorphone 0.5 Mg Inj) 0.5 mg IV Q2H PRN PRN Reason: Pain, Severe (7-10) Lactated Ringer's (Lactated Ringers) 1,000 mls @ 100 mls/hr IV CONT [facility] Last Infusion: 02/17/24 15:00 Dose: 0 mls/hr Documented By: Admin: 02/17/24 06:57 Dose: 100 mls/hr Documented By: Infusion: 02/17/24 06:57 Dose: Infused Documented By: Admin: 02/16/24 22:22 Dose: 100 mls/hr Documented By: TASHIA Ibuprofen (Ibuprofen 600 Mg Tablet) 600 mg PO Q6H [facility] Last Admin: 02/17/24 21:51 Dose: 600 mg Documented By: Admin: 02/17/24 14:58 Dose: 600 mg Documented By: Admin: 02/17/24 08:37 Dose: 600 mg Documented By: Admin: 02/17/24 04:25 Dose: 600 mg Documented By: Admin: 02/16/24 22:24 Dose: 600 mg Documented By: TASHIA Ibuprofen (Ibuprofen 600 Mg Tablet) 600 mg PO Q6H [facility] Last Admin: 02/18/24 10:21 Dose: 600 mg Documented By: Admin: 02/18/24 04:52 Dose: 600 mg Documented By: Admin: 02/18/24 04:16 Dose: Not Given Documented By: AIME Methylprednisolone (Methylprednisolone 4 Mg Tablet) 24 mg PO DAILY [facility] Last Admin: 02/18/24 08:50 Dose: 24 mg Documented By: PAUL Naloxone HCl (Naloxone 0.4 Mg/Ml Vial) 0.2 mg IV Q2MIN PRN PRN Reason: Opiate Reversal Non-Formulary Medication (Omeprazole) 40 mg PO BID [facility] Non-Formulary Medication (Ramelteon [Rozerem]) [address] [facility] Methylphenidate [ Metadate Cd] 10mg Cap Er 10 mg PO DAILY [facility] Last Admin: 02/18/24 08:51 Dose: Not Given Documented By: Admin: 02/17/24 08:38 Dose: Not Given Documented By: JUAN Ondansetron HCl (Ondansetron 4 Mg/2 Ml Inj) 4 mg IV NOW ONE Stop: 02/16/24 18:44 Last Admin: 02/16/24 18:46 Dose: 4 mg Documented By: SAURAV Ondansetron HCl (Ondansetron 4 Mg/2 Ml Inj) 4 mg IV Q4HR PRN PRN Reason: Nausea And Vomiting Last Admin: 02/16/24 22:48 Dose: 4 mg Documented By: TASHIA Oxycodone HCl (Oxycodone Ir 5 Mg Tablet) 5 mg PO Q3H PRN PRN Reason: Pain, Moderate (4-6) Oxycodone HCl (Oxycodone Ir 5 Mg Tablet) 10 mg PO Q3HR PRN PRN Reason: Pain, Severe (7-10) Last Admin: 02/18/24 10:21 Dose: 10 mg Documented By: Admin: 02/18/24 06:12 Dose: 10 mg Documented By: Admin: 02/18/24 02:28 Dose: 10 mg Documented By: Admin: 02/17/24 21:50 Dose: 10 mg Documented By: Admin: 02/17/24 16:55 Dose: 10 mg Documented By: JUAN Pantoprazole Sodium (Pantoprazole Dr 40 Mg Tablet) 40 mg PO BIDAC [facility] Last Admin: 02/18/24 06:11 Dose: 40 mg Documented By: Admin: 02/17/24 16:55 Dose: 40 mg Documented By: Admin: 02/17/24 06:23 Dose: 40 mg Documented By: TASHIA Polyethylene Glycol (Polyethylene Glycol 3350 17 Gm Powd.Pack) 17 gm PO DAILY [facility] Last Admin: 02/18/24 08:50 Dose: 17 gm Documented By: Admin: 02/17/24 08:39 Dose: 17 gm Documented By: JUAN Sennosides (Sennosides 8.6 Mg Tablet) 17.2 mg PO BEDTIME [facility] Last Admin: 02/17/24 21:52 Dose: 17.2 mg Documented By: Admin: 02/16/24 22:25 Dose: 17.2 mg Documented By: TASHIA Sodium Chloride (Sodium Chloride 0.9% Flush) 10 ml IV PRN PRN PRN Reason: Flush Last Admin: 02/18/24 00:42 Dose: 10 ml Documented By: Admin: 02/17/24 22:50 Dose: 10 ml Documented By: AIME Sodium Chloride (Sodium Chloride 0.9% Flush) 10 ml IV BID [facility] Last Admin: 02/18/24 08:52 Dose: 10 ml Documented By: Admin: 02/17/24 21:53 Dose: 10 ml Documented By: Admin: 02/17/24 08:39 Dose: Not Given Documented By: JUAN Trazodone HCl (Trazodone 50 Mg Tablet) 100 mg PO BEDTIME [facility] Last Admin: 02/17/24 21:52 Dose: 100 mg Documented By: Admin: 02/16/24 22:54 Dose: 100 mg Documented By: TASHIA Trazodone HCl (Trazodone 50 Mg Tablet) 100 mg PO BEDTIME [facility] Last Admin: 02/17/24 21:53 Dose: Not Given Documented By: AIME Zolpidem Tartrate (Zolpidem 5 Mg Tablet) 5 mg PO BEDTIME [facility] Last Admin: 02/17/24 21:53 Dose: Not Given Documented By: Admin: 02/16/24 22:25 Dose: Not Given Documented By: TASHIA Vital Signs Vital signs: Vital Signs - 8 hr 02/16/24 17:47 Pulse Rate 77 Respiratory Rate 18 Blood Pressure 132/64 Pulse Oximetry 97 Oxygen Delivery Method Room Air MDM - Back Pain/Injury <Sae Fernandez MD - Last Filed: 02/19/24 13:45> Lab Data 02/16/24 15:40 02/16/24 15:40 Labs: Lab Results 02/16/24 02/16/24 Range/Units 15:35 15:40 WBC 10.1 (4.5-11.0) X10^3/uL RBC 3.63 L (4.0-5.2) X10^6/uL Hgb 8.6 L (12.0-16.0) g/dL Hct 27.3 L (36-46) % MCV 75.3 L (80-100) fL MCH 23.6 L (26-34) PG MCHC 31.4 (30-36) % RDW 18.8 H (11.6-14.8) % Plt Count 417 H (150-400) X10^3/uL Neut % (Auto) 64.4 (50-75) % Lymph % (Auto) 23.0 L (25-40) % [facility] % (Auto) 9.6 (3-14) % Eos % (Auto) 2.3 (2-4) % Baso % (Auto) 0.7 (0-2) % Neut # (Auto) 6500 (3466-9900) /uL Lymph # (Auto) 2300 (2163-4253) /uL [facility] # (Auto) 1000 H (0-900) /uL Eos # (Auto) 200 (0-450) /uL Baso # (Auto) 100 (0-100) /uL Sodium 136 L (137-145) mmol/L Potassium 3.8 (3.4-5.1) mmol/L Chloride 101 (98-107) mmol/L Carbon Dioxide 29 (22-32) mmol/L BUN 10 (7-17) mg/dL Creatinine 0.64 (0.52-1.04) mg/dL Estimated GFR > 60 (>60) mL/min BUN/Creatinine Ratio 15.6 (6-22) Glucose 93 (80-110) mg/dL Calcium 8.7 (8.4-10.2) mg/dL Total Bilirubin 0.5 (0.2-1.3) mg/dL AST 36 (14-36) IU/L ALT 32 (<35) IU/L Alkaline Phosphatase 107 (38-126) U/L Total Protein 6.4 (6.3-8.2) g/dL Albumin 3.5 (3.5-5.0) g/dL Globulin 2.9 (1.7-4.1) g/dL Albumin/Globulin Ratio 1.2 (1.0-2.8) TSH 1.06 (0.47-4.68) uIU/mL Free T4 0.97 (0.78-2.19) ng/dL Urine RBC 0-1/hpf (0-5/HPF) Urine WBC None seen (0-5/HPF) Ur Squamous Epith Cells 0-1 /hpf (0-5/HPF) Ur Transition Epith Cell 0-1/hpf (0-5/HPF) Urine Bacteria None seen (None) Ur Culture Indicated? Cult not indicated Vol Urine Centrifuged 10ml (spun) Salicylates < 1.0 (<20) mg/dL U Opiates 300ng/mL cut Positive H (Negative) Ur Oxycodone Screen Positive H (Negative) Urine Methadone Screen Negative (Negative) Acetaminophen < 10 (10-30) ug/mL Ur Barbiturates Screen Negative (Negative) U Tricyclic Antidepress Negative (Negative) Ur Phencyclidine Scrn Negative (Negative) Ur Amphetamines Screen Negative (Negative) U Methamphetamines Scrn Negative (Negative) Ur MDMA Scrn (Ecstasy) Negative (Negative) U Benzodiazepines Scrn Positive H (Negative) Urine Cocaine Screen Negative (Negative) U Marijuana (THC) Screen Negative (Negative) Urine pH Normal (Normal) Urine Specific Tracy Normal (Normal) Ethyl Alcohol < 10 ( - 10) mg/dL Ur Creatinine Normal (Normal) Urine Dip Bedside Urine Glucose Negative Bedside Urine Bilirubin - Negative Bedside Urine Ketone - Negative Urine Specific Tracy 1.005 Bedside Urine Occult Blood + Bedside Urine pH 8.5 Bedside Urine Protein - Negative Bedside Urine Urobilinogen - Negative Bedside Urine Nitrite - Negative Bedside Urine Leukocytes - Negative Esterase MDM Narrative Medical decision making narrative: Patient here with daughter. With suicide ideation. Patient had significant surgeries in the past 1 week. Including laminectomy as well as uterine mass surgery as well as colonoscopy. She states the pain is too bearable and she wants to end her life. She is here with family. She is already on Percocet and hydrocodone. Her methocarbamol is not working. She has pain in the left gluteal area that radiates down to her foot. The pain she states is unbearable. No loss of bowel bladder control. Patient seen by Dr. Umana as well as Dr. Rice for her procedures. After history and exam social work consult suicide precautions CBC CMP drug screen alcohol urinalysis Xanax hydrocodone, Valium MDM Medical records reviewed: Surgical procedures in the past week Differential considered: Includes but not limited to postoperative pain/muscle spasm Lab Test results independently reviewed as above. Pertinent findings: WBC 10.1 hemoglobin 8.6 sodium 136 potassium 3.8 TSH 1.06 positive opiates positive oxycodone positive benzodiazepine alcohol negative Imaging studies independently reviewed: Imaging not indicated at this time Consultations: Social work seeing patient for suicide ideation 6:[address] Quispe, on-call primary for Dr. Luque, who will admit patient. Treatments: Xanax hydrocodone Dilaudid Valium Re-evaluations: 5:40 p.m.. Updated patient and daughter treatment plan. I will add Valium to help for muscle spasms. Social work to see patient. She states she is suicidal due to the pain, she can not endorse the pain Discussion: Appropriate for admission for pain control. Patient has had hydrocodone Valium Dilaudid Xanax without significant improvement. She is already on home hydrocodone oxycodone and methocarbamol. Social work has started seeing patient. Primary care will admit patient. Patient and family agree for admission Diagnosis: Suicide ideation, postoperative pain <Aria Mc, - Last Filed: 02/17/24 01:19> Lab Data Labs: Lab Results 02/16/24 02/16/24 Range/Units 15:35 15:40 WBC 10.1 (4.5-11.0) X10^3/uL RBC 3.63 L (4.0-5.2) X10^6/uL Hgb 8.6 L (12.0-16.0) g/dL Hct 27.3 L (36-46) % MCV 75.3 L (80-100) fL MCH 23.6 L (26-34) PG MCHC 31.4 (30-36) % RDW 18.8 H (11.6-14.8) % Plt Count 417 H (150-400) X10^3/uL Neut % (Auto) 64.4 (50-75) % Lymph % (Auto) 23.0 L (25-40) % [facility] % (Auto) 9.6 (3-14) % Eos % (Auto) 2.3 (2-4) % Baso % (Auto) 0.7 (0-2) % Neut # (Auto) 6500 (6405-3833) /uL Lymph # (Auto) 2300 (0125-4571) /uL [facility] # (Auto) 1000 H (0-900) /uL Eos # (Auto) 200 (0-450) /uL Baso # (Auto) 100 (0-100) /uL Sodium 136 L (137-145) mmol/L Potassium 3.8 (3.4-5.1) mmol/L Chloride 101 (98-107) mmol/L Carbon Dioxide 29 (22-32) mmol/L BUN 10 (7-17) mg/dL Creatinine 0.64 (0.52-1.04) mg/dL Estimated GFR > 60 (>60) mL/min BUN/Creatinine Ratio 15.6 (6-22) Glucose 93 (80-110) mg/dL Calcium 8.7 (8.4-10.2) mg/dL Total Bilirubin 0.5 (0.2-1.3) mg/dL AST 36 (14-36) IU/L ALT 32 (<35) IU/L Alkaline Phosphatase 107 (38-126) U/L Total Protein 6.4 (6.3-8.2) g/dL Albumin 3.5 (3.5-5.0) g/dL Globulin 2.9 (1.7-4.1) g/dL Albumin/Globulin Ratio 1.2 (1.0-2.8) TSH 1.06 (0.47-4.68) uIU/mL Free T4 0.97 (0.78-2.19) ng/dL Urine RBC 0-1/hpf (0-5/HPF) Urine WBC None seen (0-5/HPF) Ur Squamous Epith Cells 0-1 /hpf (0-5/HPF) Ur Transition Epith Cell 0-1/hpf (0-5/HPF) Urine Bacteria None seen (None) Ur Culture Indicated? Cult not indicated Vol Urine Centrifuged 10ml (spun) Salicylates < 1.0 (<20) mg/dL U Opiates 300ng/mL cut Positive H (Negative) Ur Oxycodone Screen Positive H (Negative) Urine Methadone Screen Negative (Negative) Acetaminophen < 10 (10-30) ug/mL Ur Barbiturates Screen Negative (Negative) U Tricyclic Antidepress Negative (Negative) Ur Phencyclidine Scrn Negative (Negative) Ur Amphetamines Screen Negative (Negative) U Methamphetamines Scrn Negative (Negative) Ur MDMA Scrn (Ecstasy) Negative (Negative) U Benzodiazepines Scrn Positive H (Negative) Urine Cocaine Screen Negative (Negative) U Marijuana (THC) Screen Negative (Negative) Urine pH Normal (Normal) Urine Specific Tracy Normal (Normal) Ethyl Alcohol < 10 ( - 10) mg/dL Ur Creatinine Normal (Normal) Urine Dip Bedside Urine Glucose Negative Bedside Urine Bilirubin - Negative Bedside Urine Ketone - Negative Urine Specific Tracy 1.005 Bedside Urine Occult Blood + Bedside Urine pH 8.5 Bedside Urine Protein - Negative Bedside Urine Urobilinogen - Negative Bedside Urine Nitrite - Negative Bedside Urine Leukocytes - Negative Esterase Imaging Data CT scan - abdomen/pelvis: Radiologist's Impression: PROCEDURE: CT ABDOMEN PELVIS W CON INDICATIONS: increased pain post lamenectomy and uterine biopsy TECHNIQUE: After the administration of intravenous contrast, axial sections acquired from the lung bases to the pubic symphysis. Coronal and sagittal reformats were performed. For radiation dose reduction, the following was used: automated exposure control, adjustment of mA and/or kV according to patient size. COMPARISON: [facility], CT, CT ABDOMEN PELVIS W CON, 02/10/2024, 17:50. FINDINGS: Image quality: Diagnostic. Lower Chest: Trace right pleural fluid suspected. ABDOMEN: Liver: Heterogeneous hypodense lesion in the right lobe of the liver measuring at approximately 8.9 cm, (2/23), unchanged in the short-term interval. Several additional hypodense foci in the liver. Gallbladder: No radiopaque gallstones or wall thickening. Biliary ducts: No biliary dilation. Pancreas: No ductal dilation. Spleen: Size is within normal limits. Adrenal Glands: No adrenal nodules. Kidneys and Ureters: No hydronephrosis. No solid mass. No complex renal cystic lesion which requires follow up. Stomach and Bowel: Normal colonic caliber, without significant wall thickening. Normal appendix. Trace free fluid in the right lower quadrant. Peritoneum: No ascites. No pneumoperitoneum. Ventral Wall: No significant ventral hernia. Thickening at at the left lower flank has a strandy appearance, (4/48). previously more nodular. Abdominal Nodes: No retroperitoneal or mesenteric adenopathy by size criteria. Vessels: Aorta and inferior vena cava are normal in size. PELVIS: Pelvic Organs: Anteverted uterus. Hypodensity and globular appearance of the uterus. Bladder: Mildly distended. No stone. Pelvic Nodes: No enlarged lymph nodes. Miscellaneous: No inguinal hernias are seen. Bones: L3-L4 and L4-L5 intervertebral body spacers. L3-L5 pedicle screw fixation. Prior laminectomy. Resolved subcutaneous gas posterior to the lumbar spine. Lumbar edema. Skin staple line. No loculated appearing fluid collection. Expansile lesion at the left sacrum measuring 4.5 cm, (). IMPRESSION: No significant changed in the short-term interval. 1. Multiple hepatic lesions. -Consider further characterization with MRI. 2. Expansile osseous lesion at the left sacrum. 3. Heterogeneous globular appearance of the uterus. Dictated by: Jag Miramontes M.D. on 02/16/2024 at 19:49 [facility] Narrative Medical decision making narrative: Patient here with daughter. With suicide ideation. Patient had significant surgeries in the past 1 week. Including laminectomy as well as uterine mass surgery as well as colonoscopy. She states the pain is too bearable and she wants to end her life. She is here with family. She is already on Percocet and hydrocodone. Her methocarbamol is not working. She has pain in the left gluteal area that radiates down to her foot. The pain she states is unbearable. No loss of bowel bladder control. Patient seen by Dr. Umana as well as Dr. Rice for her procedures. After history and exam social work consult suicide precautions CBC CMP drug screen alcohol urinalysis Xanax hydrocodone, Valium [facility] Medical records reviewed: Surgical procedures in the past week Differential considered: Includes but not limited to postoperative pain/muscle spasm Lab Test results independently reviewed as above. Pertinent findings: WBC 10.1 hemoglobin 8.6 sodium 136 potassium 3.8 TSH 1.06 positive opiates positive oxycodone positive benzodiazepine alcohol negative Imaging studies independently reviewed: Imaging not indicated at this time Consultations: Social work seeing patient for suicide ideation 6:[address] Quispe, on-call primary for Dr. Luque, who will admit patient. Treatments: Xanax hydrocodone Dilaudid Valium Re-evaluations: 5:40 p.m.. Updated patient and daughter treatment plan. I will add Valium to help for muscle spasms. Social work to see patient. She states she is suicidal due to the pain, she can not endorse the pain Discussion: Appropriate for admission for pain control. Patient has had hydrocodone Valium Dilaudid Xanax without significant improvement. She is already on home hydrocodone oxycodone and methocarbamol. Social work has started seeing patient. Primary care will admit patient. Patient and family agree for admission Diagnosis: Suicide ideation, postoperative pain Dr. Mc-patient is admitted to Dr. Quispe however I was called in for increasing pain. Patient has had multiple recent procedure she is having increasing pain. She is good sensation in her lower extremities she can get up and go to the restroom. I have ordered a CT scan to rule out any complication from recent surgeries. CT does not show any complication Discharge Plan Departure Patient Disposition: Admitted As Inpatient Clinical Impression: Postoperative abdominal pain, Suicide ideation Admit Date/Time: 02/16/24 18:10 Admit Provider: Gelacio Quispe
[2024-02-16] MEDS: diazePAM 10 MG/2 ML SYRINGE 5 MG IV (17:43)
[2024-02-16 17:47] VITALS: BP 132/64; PULSE 77; RESP 18; O2SAT 97
--- NOTE | 2024-02-16 18:42 | CM.DANOTE ---
DCP Assessment Note: Pt is a 63yo female, resident of [place], is admitted for post operative abdominal pain and suicidal ideation. Pt lives in an apartment alone, pt's daughter, Ja, is here with pt to assist with 08/02 care from last scheduled surgery. Pt's daughter will be here until 02/27/2024. Pt's Primary Care Provider is Dr. Andrés Luque and insurance is Medicare. Patient is working with Dr. Call with her previous surgery. Pt is also an active patient of Dr. Kincaid for psychiatry and is seeing URSULA Cota for counseling. Reviewed chart and discussed with ED staff for pt's medical status. ED FABRICATION MANAGER was initially consulted due to pt's statement of suicidality due to severe pain she is experiencing during triage assessment. ED FABRICATION MANAGER met w/patient at bedside; introduced self and role. Present in the room is pt's daughter, Ja, who came in from [place] to help with care needs at home. Patient was found in bed, alert and oriented, cooperative with assessment, expressing she is experiencing uncontrolled pain. Pt spoke at length of her recent admission and how having uncontrolled pain has exacerbated her depression. Patient is currently awaiting biopsy results of tumors found on her liver, already consulted with [facility] with an appointment scheduled for 02/23/2024. Patient reports a hx of suicide attempts but depression has been managed with medications; pt reports her psych medications were disrupted during this previous admission. Patient has buproprion, methylphenidate, prazosin, ramelton, trazadone prescribed but pt reports she did not have any of those medications during her previous admission. Pt explains her pain is so severe that I would do anything for it to stop. Patient denies HI, explains her SI is passive and she has no intent or plans at this time. ED FABRICATION MANAGER spoke with [facility] answering services to notify of pt's admission to the hospital as she was supposed to start RN care tomorrow, 02/16. Plan: Pt has been admitted for further observation, care plan evolving with pending biopsy results. CM team will follow closely for coordination of discharge plans. TERRY Diaz Discharge Planning/Care Management Discharge Planning Assessment Assigned Ed Teacher URSULA Castro DPOA/Assigned Designee Name Paras Burks Contact Information [phone] Advance Directives? No History Provided By Patient,Family Member,Medical Record Has Patient been admitted in last 30 Yes days? Comment Patient was admitted on 2023 - 02/14/2024. Prior Living Arrangements Apartment/Condo Household Members none Type of transporation used prior to Drives own vehicle admit Independent with ADL's Yes Is patient alert and oriented? Yes Caregiver for Another No Community Services used prior to Physical Therapy,Occupational admission: Therapy,Home Health Aid,Home Health Nurse Comment Patient was accepted with [facility] for RN/PT/OT/HH Aide services from last admission. DME Already Rented / Owned FWW / Walker Comment Pt uses a walker at baseline, Pt also has a CPAP for night use. Patient/Family Preference Home with Home Health Barriers to Discharge No Discharge Plan Home with Home Health Transportation Arrangement Pt's daughter is here until and will be returning back to [place], pt will also have friends from [place] and possibly son coming who could transport home if daughter is not available. Referrals Initiated Home Health Please Provide Date Initial DC 02/16/24 Assessment Was Performed Next Review Type Continued Stay Review
[2024-02-16] MEDS: ONDANSETRON 4 MG/2 ML INJ IV ×2 (18:46→22:48)
--- NOTE | 2024-02-16 18:52 | DI.CT.S_ITS ---
PROCEDURE: CT ABDOMEN PELVIS W CON INDICATIONS: increased pain post lamenectomy and uterine biopsy TECHNIQUE: After the administration of intravenous contrast, axial sections acquired from the lung bases to the pubic symphysis. Coronal and sagittal reformats were performed. For radiation dose reduction, the following was used: automated exposure control, adjustment of mA and/or kV according to patient size. COMPARISON: [facility], CT, CT ABDOMEN PELVIS W CON, 02/10/2024, 17:50. FINDINGS: Image quality: Diagnostic. Lower Chest: Trace right pleural fluid suspected. ABDOMEN: Liver: Heterogeneous hypodense lesion in the right lobe of the liver measuring at approximately 8.9 cm, (2/23), unchanged in the short-term interval. Several additional hypodense foci in the liver. Gallbladder: No radiopaque gallstones or wall thickening. Biliary ducts: No biliary dilation. Pancreas: No ductal dilation. Spleen: Size is within normal limits. Adrenal Glands: No adrenal nodules. Kidneys and Ureters: No hydronephrosis. No solid mass. No complex renal cystic lesion which requires follow up. Stomach and Bowel: Normal colonic caliber, without significant wall thickening. Normal appendix. Trace free fluid in the right lower quadrant. Peritoneum: No ascites. No pneumoperitoneum. Ventral Wall: No significant ventral hernia. Thickening at at the left lower flank has a strandy appearance, (4/48). previously more nodular. Abdominal Nodes: No retroperitoneal or mesenteric adenopathy by size criteria. Vessels: Aorta and inferior vena cava are normal in size. PELVIS: Pelvic Organs: Anteverted uterus. Hypodensity and globular appearance of the uterus. Bladder: Mildly distended. No stone. Pelvic Nodes: No enlarged lymph nodes. Miscellaneous: No inguinal hernias are seen. Bones: L3-L4 and L4-L5 intervertebral body spacers. L3-L5 pedicle screw fixation. Prior laminectomy. Resolved subcutaneous gas posterior to the lumbar spine. Lumbar edema. Skin staple line. No loculated appearing fluid collection. Expansile lesion at the left sacrum measuring 4.5 cm, (2/74). IMPRESSION: No significant changed in the short-term interval. 1. Multiple hepatic lesions. -Consider further characterization with MRI. 2. Expansile osseous lesion at the left sacrum. 3. Heterogeneous globular appearance of the uterus. Dictated by: Jag Miramontes M.D. on 02/16/2024 at 19:49 Approved by: Jag Miramontes M.D. on 02/16/2024 at 20:01
[2024-02-16] MEDS: HYDROMORPHONE 0.5 MG INJ IV (18:56)
[2024-02-16] MEDS: HYDROMORPHONE 1 MG INJ IV ×2 (19:39→22:25)
[2024-02-16 19:50] VITALS: BP 148/78; PULSE 78; RESP 14; O2SAT 99
[2024-02-16 21:04] VITALS: BMI 36.8
[2024-02-16 21:13] VITALS: BP 144/77; PULSE 91; RESP 18; TEMP 36.1; O2SAT 91
[2024-02-16] MEDS: LACTATED RINGERS 1,000 ML 100 ML IV (22:22)
[2024-02-16] MEDS: IBUPROFEN 600 MG TABLET PO (22:24)
[2024-02-16] MEDS: SENNOSIDES 8.6 MG TABLET 17.2 MG PO (22:25)
[2024-02-16] MEDS: TRAZODONE 50 MG TABLET 100 MG PO (22:54)
[2024-02-17] VITALS: BP 123/73; PULSE 87; RESP 19; TEMP 36.7; O2SAT 95
[2024-02-17] MEDS: IBUPROFEN 600 MG TABLET PO ×4 (04:25→21:51)
[2024-02-17] MEDS: HYDROMORPHONE 1 MG INJ IV ×4 (04:26→22:49)
[2024-02-17 04:40] VITALS: BP 117/58; PULSE 77; RESP 18; TEMP 36.1; O2SAT 92
[2024-02-17] MEDS: PANTOPRAZOLE DR 40 MG TABLET PO ×2 (06:23→16:55)
[2024-02-17] MEDS: LACTATED RINGERS 1,000 ML 100 ML IV (06:57)
--- NOTE | 2024-02-17 07:27 | PM.HP.1 ---
History of Present Illness History of Present Illness Date Patient Seen: 02/17/24 Time Patient Seen: 07:28 Chief complaint: Pain, post sx problem Narrative: 63-year-old female well known to me recently discharged after spine surgery and postoperatively discovered to have probable endometrial cancer with Mets in liver lungs skin and left sacrum. Patient has apparently had increasing pain particularly in her left gluteal area over the last several days since discharge to the point where she ?can not tolerate it?, despite 10 mg hydrocodone tabs, 5 mg oxycodone tabs, etcetera. Back spasming occurring in the left leg kind of what was happening prior to surgery. Also some sort of stiffness in her pelvis feels like she was sitting on rocks. If she was up and around walking she feels lots better than if she was lying in bed or sitting down but has not had the stamina or strength to be up and around 100% of the time. 10 mg hydrocodone alternating with 5 mg oxycodone as instructed upon discharge and she says that is not touching it at all. She previously was using methocarbamol to help with some of the spasming component but that is not providing any benefit either. She reached the point where she felt like she would rather end her life thing continued to experience this kind of pain. She did not speak that to anyone until she came to the hospital, but this morning feels like she is out of that as her pain is much better controlled. A couple doses of parental hydromorphone made a tremendous difference and wonders if she could get perhaps the oral version to take home Patient had severe pain out of control prior to her back surgery, pain probably well out of proportion to findings on imaging. Seem to be much better immediately postop but obviously is had increasing pain. The diagnosis of the bony metastasis as well as the underlying malignancy seem to provide some degree of explanation for her pain out of proportion but I am not convinced it fully explains this presentation. No evidence of complication related to her surgery based on imaging and examination are. Patient had evaluation for newly found uterine mass with evidence of metastases as above. Pathology still pending on all the areas sampled on February 13. Referral urgently placed to medical oncology as well as Radiation Oncology, but need path results etcetera. Patient does have a medical oncology appointment on February 22 at [facility] Patient has significant history of depression anxiety and PTSD. She is followed by URSULA Cota, in our behavioral health clinic. [facility] Medical History History of COVID-19 Acid reflux Panic attacks Lumbar post-laminectomy syndrome Microcytic anemia Pelvic floor dysfunction in female Genitourinary syndrome of menopause BMI 38.0-38.9,adult Fibromyalgia Tinnitus Vaginal atrophy Painful menstrual periods (1969) History of recurrent ear infection (1960) Glaucoma (2009) Fatty tumor Plantar warts (2002) Arthritis (2004) Shoulder pain (2008) Lumbar spine pain (2004) Foot pain (2012) Chronic back pain (2004) Suicide attempt (2004) Pneumothorax Hearing loss (1961) Anemia (1986) Chicken pox (1960) Measles (1961) Hayfever Morbid obesity with body mass index (BMI) of 40.0 to 49.9 (08/07/16) Essential hypertension (08/07/16) Gastroesophageal reflux disease without esophagitis (04/03/16) Dorsalgia (06/16/11) Obstructive sleep apnea syndrome (06/16/11) Generalized anxiety disorder (06/16/11) Mixed hyperlipidemia (06/16/11) Attention-deficit hyperactivity disorder, predominantly inattentive type Post traumatic stress disorder (PTSD) Surgical History History of colonoscopy (04/11/18) History of ear surgery History of thumb surgery (2009) History of back surgery (2007) History of carpal tunnel repair (2010) Status post delivery (01/27/90) Status post tonsillectomy and adenoidectomy Family History Father Cancer Hypertension High cholesterol Grandfather Cancer Mental health problem Depression Leukemia Grandmother Mental health problem Alzheimer's dementia Grandfather Diabetes mellitus Hypertension High cholesterol Grandmother Heart disease Social History marital status: number of children: 2 household members: none lives independently: Yes caregiver/support person: No housing: apartment pets and animals: Yes education level: college occupational status: disabled 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/gnosticism: Rastafari travel history: recent leisure activities: exercise, art and other Smoking Status: Former smoker Tobacco: How many years used: 0 quit status: quit date established second hand exposure: Yes alcohol intake: current substance use type: does not use Meds Home Medications and Allergies Home Medications Medication Instructions Recorded Confirmed Type Disabled Parking #1 ea 11/28/21 02/16/24 Rx ResMed AirSense 10 05/20/22 02/16/24 History docusate sodium 100 mg capsule 100 mg PO BID #180 caps 11/13/22 02/16/24 Rx bupropion HCl 300 mg 24 hr tablet, 300 mg PO Q DAY #90 tabs 06/23/23 02/16/24 Rx extended release (Wellbutrin XL) trazodone 50 mg tablet 100 mg (2 x 50 mg) PO BEDTIME #180 06/23/23 02/16/24 Rx tabs hydrochlorothiazide 25 mg tablet 25 mg PO DAILY #90 tabs 06/24/23 02/16/24 Rx potassium chloride 20 mEq 20 meq PO DAILY #90 tabs 11/12/23 02/16/24 Rx tablet,extended release estradiol 0.01% (0.1 mg/gram) 1 appful vaginal DAILY #42.5 grams 11/24/23 02/16/24 Rx vaginal cream (Estrace) acetaminophen 650 mg 650 mg PO QID 01/31/24 02/16/24 History tablet,extended release omeprazole 40 mg capsule,delayed 40 mg PO BID 01/31/24 02/16/24 History release ramelteon 8 mg tablet (Rozerem) 8 mg PO HS Sleep 01/31/24 02/16/24 History hydrocodone 10 mg-acetaminophen 1 - 2 tab PO TID PRN pain #60 tabs 02/07/24 02/16/24 Rx 325 mg tablet hydrocortisone 1 % topical cream 1 applic topical QID PRN 02/09/24 02/16/24 History (Preparation H Hydrocortisone) Hemorrhoids methylphenidate HCl 10 mg biphasic 10 mg PO QAM 02/09/24 02/16/24 History 30-70 capsule,extended release (Metadate CD) mupirocin 2 % topical ointment 1 applic topical BID 02/09/24 02/16/24 History aspirin 81 mg tablet,delayed 81 mg PO DAILY #90 tabs 02/14/24 02/16/24 Rx release methylprednisolone 4 mg tablets in See Rx Instructions PO .COMPLEX 02/14/24 02/16/24 Rx a dose pack (Methylpred DP) #21 ea ondansetron 4 mg disintegrating 4 mg sublingual Q4-6H PRN Nausea 02/14/24 02/16/24 Rx tablet #30 tabs oxycodone 5 mg tablet 5 mg PO Q4-6H PRN Pain, Moderate 02/14/24 02/16/24 Rx (4-6) #30 tabs polyethylene glycol 3350 17 17 g PO BID PRN constipation #510 02/14/24 02/16/24 Rx gram/dose oral powder grams alprazolam 0.5 mg tablet (Xanax) 0.5 mg PO BID anxiety 02/16/24 02/16/24 History Allergies Allergy/AdvReac Type Severity Reaction Status Date / Time penicillin G Allergy Mild RASH Verified 02/16/24 14:58 doxycycline AdvReac Mild N/V Verified 02/16/24 14:58 Sulfa (Sulfonamide AdvReac Mild ACT LIKE Verified 02/16/24 14:58 Antibiotics) I'M DRUNK/SICK gabapentin [GABAPENTIN] AdvReac Unknown Drowsy Verified 02/16/24 14:58 eggplant AdvReac Mild stinging Uncoded 02/03/24 10:49 needle feeling on tongue Review of Systems Review of Systems ROS: Yes All systems reviewed with the patient and are negative except as otherwise documented Exam Vital Signs (past 8 hours): - 02/17/24 00:00 02/17/24 04:40 Temperature 98.0 F 96.9 F L Pulse Rate 87 77 Respiratory Rate 19 18 Blood Pressure 123/73 117/58 L Pulse Oximetry 95 92 Oxygen Delivery Method Room Air Narrative Exam Narrative: Middle-aged female who appears somewhat older than stated age in no obvious distress lying in hospital bed HEENT unremarkable Lungs-clear with good breath sounds Heart-regular rate and rhythm Abdomen-obese positive bowel tones soft nontender nondistended Extremities-no cyanosis clubbing, trace pretibial edema bilaterally left maybe somewhat worse than right. Neuro-alert and oriented x3, no cranial nerve defects, moves all 4 extremities. 5/5 strength when tested in bed, gait not tested, no focal sensory changes that I can identify Objective Labs 02/16/24 15:40 02/16/24 15:40 Labs: Laboratory Results - last 24 hr 02/16/24 02/16/24 15:35 15:40 WBC 10.1 RBC 3.63 L Hgb 8.6 L Hct 27.3 L MCV 75.3 L MCH 23.6 L MCHC 31.4 RDW 18.8 H Plt Count 417 H Neut % (Auto) 64.4 Lymph % (Auto) 23.0 L [place] % (Auto) 9.6 Eos % (Auto) 2.3 Baso % (Auto) 0.7 Neut # (Auto) 6500 Lymph # (Auto) 2300 [place] # (Auto) 1000 H Eos # (Auto) 200 Baso # (Auto) 100 Sodium 136 L Potassium 3.8 Chloride 101 Carbon Dioxide 29 BUN 10 Creatinine 0.64 Estimated GFR > 60 BUN/Creatinine Ratio 15.6 Glucose 93 Calcium 8.7 Total Bilirubin 0.5 AST 36 ALT 32 Alkaline Phosphatase 107 Total Protein 6.4 Albumin 3.5 Globulin 2.9 Albumin/Globulin Ratio 1.2 TSH 1.06 Free T4 0.97 Urine RBC 0-1/hpf Urine WBC None seen Ur Squamous Epith Cells 0-1 /hpf Ur Transition Epith Cell 0-1/hpf Urine Bacteria None seen Ur Culture Indicated? Cult not indicated Vol Urine Centrifuged 10ml (spun) Salicylates < 1.0 U Opiates 300ng/mL cut Positive H Ur Oxycodone Screen Positive H Urine Methadone Screen Negative Acetaminophen < 10 Ur Barbiturates Screen Negative U Tricyclic Antidepress Negative Ur Phencyclidine Scrn Negative Ur Amphetamines Screen Negative U Methamphetamines Scrn Negative Ur MDMA Scrn (Ecstasy) Negative U Benzodiazepines Scrn Positive H Urine Cocaine Screen Negative U Marijuana (THC) Screen Negative Urine pH Normal Urine Specific [place] Normal Ethyl Alcohol < 10 Ur Creatinine Normal Assessment & Plan Assessment & Plan narrative: 1. Postop pain-no evidence of complication related to her surgery. Imaging reassuring. Wound appears healing appropriately. Difficult to completely understand her pain. Certainly she has this left-sided sacral lesion that is possibly a contributing factor but other symptoms also predate her surgery that is seem to be improved initially postop. Patient has consistently demonstrated pain at a proportion to findings that is not well controlled with the usual dosing of usual medications I am going to ask Dr. Call, or someone from his practice to help me evaluate patient to be sure there is not some postoperative complication that has yet to be identified going on here, even though that is seems unlikely based on workup thus far. Will continue to try and treat with appropriate parental medications, will try a fentanyl patch, with backup be the parental or oral medications, while awaiting path results and continue to work for early referral to Radiation Oncology, as perhaps starting radiation therapy to that is sacral lesion would be the most effective way to get her pain under control She may well require placement in group home to help manage her care and her pain at the same time, part of this may be having gone home and the need to manage her personal care and postoperative care as well as the pain itself 2. Suicidal ideation-patient's suicidal ideation seems to be coming mostly from [id number] pain. This morning when pain is much better she expresses absolutely no suicidal ideation. She describes how she just felt like it was not worth continuing on if pain was not going to be controlled etcetera. I think she is overall low risk as long as we are addressing her pain, and discussing next steps with her etcetera. She talks about upcoming appointments with Oncology and feeling like she wants to continue to work through this cancer diagnose etcetera which makes me think she is looking to the future, and the stumbling block has been this [id number] pain. I have reassured her that we will focus on controlling her pain as above which is why I suggest using fentanyl find something that she can take home with her that will control her pain has least some extent while we are evaluating her cancer etcetera. This seems to be quite helpful for her again she expresses absolutely nothing in the way of self-harm or wanting to end her life I had any point in our discussion this morning. When asked about it she admits thinking about ending at all because of the pain but that is really her focus is the pain. 3. Hypertension-continue patient's outpatient medications. Blood pressure well controlled at this time 4. Status post recent back surgery-will get skilled therapy involved to get her up and around etcetera. As above will have ortho see her as well. 5. VTE prophylaxis-patient at higher than average risk with recent surgery diagnose of probable cancer as well as immobility related to the pain. Certainly she would benefit from chemo prophylaxis with Lovenox. She was far enough out from surgery as certainly believe that Lovenox would be an appropriate intervention, with patellar benefit outweighing potential risk at this time. 6. Code status-patient should be a full code in the event of a sudden cardiac or respiratory arrest as previously requested 7. Disposition-unclear as to whether patient will be able to return home. Depends on her level of pain with activity etcetera. May want to consider placement in group home least temporarily come although that will significantly complicate her evaluation workup for her malignancy, especially if she requires radiation therapy to her sacral lesion. Discharge home would by far be the best option if that is an appropriate safe option for her. Time-Based Coding :: [TOTAL MINUTES] spent with patient and on the chart (including review of chart, obtaining history, exam, reviewing outside data, placing orders, documenting exam and treatment plan, and counseling patient) on [DATE]. Quality VTE Deep Vein Thrombosis/Pulmonary Embolism Present on Admission: No IH PROFEE Charge Codes Initial inpatient/observation care: 11993
[2024-02-17 08:00] VITALS: BP 110/56; PULSE 76; RESP 16; TEMP 36.6; O2SAT 93
[2024-02-17] MEDS: hydroCHLOROthiazide 25 MG TABLET PO (08:37)
[2024-02-17] MEDS: ASPIRIN EC 81 MG TABLET PO (08:37)
[2024-02-17] MEDS: buPROPion XL 150 MG TAB 300 MG PO (08:37)
[2024-02-17] MEDS: dexAMETHasone 4 MG TABLET PO ×2 (08:37→16:55)
[2024-02-17] MEDS: fentaNYL 25 MCG/PATCH TOP (08:37)
[2024-02-17] MEDS: diazePAM 5 MG TABLET PO ×3 (08:37→21:52)
[2024-02-17] MEDS: ENOXAPARIN 40 MG/0.4 ML SYRINGE SUBCUT (08:38)
[2024-02-17] MEDS: polyethylene glycoL 3350 17 GM POWD.PACK PO (08:39)
[2024-02-17 12:00] VITALS: BP 124/69; PULSE 82; RESP 16; TEMP 36.6; O2SAT 94
--- NOTE | 2024-02-17 13:26 | PT.IIE ---
Surgical History (Last Reviewed 02/17/24 @ 07:30 by Andrés Luque MD) History of back surgery (2007) History of carpal tunnel repair (2010) History of colonoscopy (04/11/18) History of ear surgery History of thumb surgery (2009) Status post delivery (01/27/90) Status post tonsillectomy and adenoidectomy Medical History (Last Reviewed 02/17/24 @ 07:30 by Andrés Luque MD) Acid reflux Anemia (1986) Arthritis (2004) Attention-deficit hyperactivity disorder, predominantly inattentive type BMI 38.0-38.9,adult Chicken pox (1960) Chronic back pain (2004) Dorsalgia (06/16/11) Essential hypertension (08/07/16) Fatty tumor Fibromyalgia Foot pain (2012) Gastroesophageal reflux disease without esophagitis (04/03/16) Generalized anxiety disorder (06/16/11) Genitourinary syndrome of menopause Glaucoma (2009) Hayfever Hearing loss (1961) History of COVID-19 History of recurrent ear infection (1960) Lumbar post-laminectomy syndrome Lumbar spine pain (2004) Measles (1961) Microcytic anemia Mixed hyperlipidemia (06/16/11) Morbid obesity with body mass index (BMI) of 40.0 to 49.9 (08/07/16) Obstructive sleep apnea syndrome (06/16/11) Painful menstrual periods (1969) Panic attacks Pelvic floor dysfunction in female Plantar warts (2002) Pneumothorax Post traumatic stress disorder (PTSD) Shoulder pain (2008) Suicide attempt (2004) Tinnitus Vaginal atrophy Physical Therapy Inpatient Evaluation/Re-Eval M1 PT/OT-IP Prior Functional Status Start: 02/17/24 07:46 Freq: NEEDED Status: Active Protocol: Document 02/17/24 13:00 ANETA (Rec: 02/17/24 13:26 ANETA [id number]) Medical Review Prior Functional Status Medical History Reviewed Yes Diet/Fluid Consistency Regular Communication WNLs Mobility and Gait Mod I with RW or 4WRW Activities of Daily Living and IADL's Since d/c home, assistance from daughter as needed Social History Household Members none Living Arrangements Apartment/Condo Number of Floors (Floors) One Floor Number of Stairs To Enter/Railing? No steps to enter Home Environment Standard Height Toilet,Tub/ Shower Home Equipment Front Wheel Walker,Four Wheel Walker,Tub Transfer Bench,Hand Held Shower,Grab Bars In Shower Employment Status Retired Additional Social History Comment Daughter will be staying with her until 02/27/24 M2 PT-IP Current Condition Start: 02/17/24 07:46 Freq: NEEDED Status: Active Protocol: Document 02/17/24 13:00 MB (Rec: 02/17/24 13:26 MB [id number]) Physical Therapy Current Condition Current Condition Evaluation Date 02/17/24 Treatment Diagnosis Uncontrolled pain and SI M3 PT-IP Subjective Start: 02/17/24 07:46 Freq: NEEDED Status: Active Protocol: Document 02/17/24 13:00 MB (Rec: 02/17/24 13:26 MB [id number]) Subjective Physical Therapy Visit Type Type Initial Evaluation Visit Start Time 13:00 Visit Stop Time 13:18 Number of ONLINE TRADER Visits 0 Physical Therapy Visit Comments Patient Comments Pt agreeable to PT, reports she has no pain on current medication regimen. Therapy Pain Assessment Pain When Pain Assessed At Rest Pain Present Pain Present Denied Pain M4 PT-IP Mobility and Gait Start: 02/17/24 07:46 Freq: NEEDED Status: Active Protocol: Document 02/17/24 13:00 MB (Rec: 02/17/24 13:26 MB [id number]) PT-Bed Mobility Assessment Rolling Type of Rolling Log Rolling,Roll to Right,Roll to Left,Bilateral Level of Assist Independent Supine to Sit Supine to Sit Independent,Bedrails Sit to Supine Sit to Supine Independent,Bedrails Scooting Scooting to Edge of Bed Independent Scooting Up and Down in Bed Independent PT-Transfer Assessment Sit to and From Stand Sit to and from Stand Independent Equipment Transfer Assistive Device Gait Belt,Front Wheeled Walker Orthotic/Prosthetic Devices or Brace: No Transfers Transfer Destination Bed,Chair,Toilet Transfer Technique Ambulation Transfer Ability Level of Assist Independent Comments Mobility Comments Pt lightly uses bedrail to her right and she has one at home now, I for toileting, PT only manages IV pole Gait Assessment Gait Gait Assistance Required: Independent Distance (Feet) 100 Able to Maintain Weight Bearing Status Yes During Gait Assistive Devices Assistive Device Gait Belt,Front Wheeled Walker Orthotic/Prosthetic Devices or Brace: No Gait Deviations General Gait Pattern Antalgic,Decreased Stride Length,Decreased Feet Clearance,Flexed Trunk,Wide Based Gait Comments Gait Comments Post-op decreased gait speed and otherwise, no imbalance or pain with gait today with RW: gait is slow with her RW, 15' x2 to BR and 100' in hallway PT-Balance Assessment Sitting Balance and Reactions Static Sitting Balance Ability Good Dynamic Sitting Balance Ability Good Standing Balance and Reactions Static Standing Balance Ability Good Dynamic Standing Balance Ability Good Device Used RW M5 PT-IP Objective Assessments Start: 02/17/24 07:46 Freq: NEEDED Status: Active Protocol: Document 02/17/24 13:00 MB (Rec: 02/17/24 13:26 [id number]) Orientation Orientation/Cognition Level of Alertness Alert Orientation Name,Age,Birthday,Month,Date, Year,Day of Week,Place, Situation Language Function Ability No Deficits Noted Safety Awareness Understands Safety Issues Memory Description No Deficits Noted Comments Recalls 2/3 back precautions and demonstrates log rolling Gross Range of Motion Upper Extremity ROM Assessment Within Functional Limits Lower Extremity ROM Assessment Within Functional Limits Strength Upper Extremity Strength Assessment Within Functional Limits Lower Extremity Strength Assessment Within Functional Limits M6 PT-IP Treatment Start: 02/17/24 07:46 Freq: NEEDED Status: Active Protocol: Document 02/17/24 13:00 MB (Rec: 02/17/24 13:26 [id number]) Physical Therapy Treatment Education Education Provided Precautions,Safety Other Treatments Other Treatment Performed Reviewed back precautions and log rolling M7 PT-IP Assessment and Plan Start: 02/17/24 07:46 Freq: NEEDED Status: Active Protocol: Document 02/17/24 13:00 MB (Rec: 02/17/24 13:26 [id number]) PT Summary Assessment and Plan Potential Rehabilitation Potential Good Status of Condition at Evaluation Unstable Summary Impairments Pain,Strength,Balance,Activity Tolerance Progress Towards Goals Progressing Toward Goals Assessment Summary Pt is a 63 y/o female who d/cd from hospital on Wednesday and returns on Wednesday d/t uncontrolled pain. Pt s/p lumbar fusion one week ago and found to have CA uterus, sacrum, etc. post-op. Pt has no pain on medication regimen today with PT and she is mod I with mobility and demonstrates log rolling well. Re-ed in back precautions. Recommend superv and HH at d/c . Frequency of Treatment Frequency Of Treatment Discharge Precautions Lumbar Precautions Log Roll,No Twisting,Limit Bending,Lifting Restriction of 10 lbs,Gait Belt above Incisional Area Weight Bearing Status Weight Bearing Status Weight Bear as Tolerated Recommendations To Nursing Amount of Assist Needed 1 Person Assist Discharge Recommendations PT Discharge Recommendations Home with Assistance,Home Health Transportation Needs at Discharge Private Vehicle
--- NOTE | 2024-02-17 13:48 | PM.PN.1 ---
Subjective Subjective Interval history: Karlie is a pleasant 63 year old female who is POD# 8 s/p L3-4, L4-[address] Call. History: Her TLIF surgery went well however during her post-op recovery patient continued to have LLQ pain, urinary changes, numbness and pain in the pelvis for (present for several months now). She reported intermitted LLQ pain worse w/ lying on her left side and worse w/ palpation. She reported she could feel a lump when she stands up. A CT scan was then ordered which revealed several intra-abdominal lesions. She is currently being worked up for metastatic disease. She underwent tissue biopsy during her last admission, pathology still pending, and a colonoscopy which was negative for any lesions of the colon. Chest CT obtained at last visit demonstrated metastatic lesions, bilateral pulmonary nodules. Her daughter is visiting from [place], she will be here until the . She meets w/ an oncologist on the 02/22 at [facility]. She has her first post-op appt w/ our office ([facility]) on 02/24/24. She has an appt w/ Dr. Call on 03/28/24. She states her pain was controlled at the time of discharge (wednesday) from the hospital, the following day her pain began to increase to a 5-7 and by Wednesday her pain was totally uncontrolled at a 10 w/o any relief from 10mg Oxycodone. She began having severe muscle spasms, especially in the left buttocks. She tried methocarbamol without any relief, she noticed this did make it more difficult for her to urinate. Denies any shooting pain down the legs states it is mostly just located in her sacral area. She was advised to return to the ED by HH nurse and she was re-admitted for pain control. She also was having a lot of abdominal pain which has since improved w/ some Gas-x and Ducolax. Last BM 2 days ago. Urinating on her own. Patient states she feels good when standing or walking but she has a lot of sacral pain with sitting. Upon our evaluation this afternoon patient is currently without pain or muscle spasms, she was able to ambulate around the room with a walker without issue. Denies fever, chills, chest pain, SOB, nausea, vomiting. c/o vaginal fullness and pain. Exam Vital Signs (past 8 hours): - 02/17/24 08:00 02/17/24 12:00 Temperature 97.8 F 97.8 F Pulse Rate 76 82 Respiratory Rate 16 16 Blood Pressure 110/56 L 124/69 Pulse Oximetry 93 94 Oxygen Flow Rate 0 0 Oxygen Delivery Method Room Air Oxygen Flow Rate 0 Narrative Exam Narrative: Patient is ambulating down the hallway and in her room w/ a walker upon my presentation this afternoon. 5/5 strength w/ DF, PF, EHL bilaterally. Calves soft and compressible bilaterally. SILT throughout bilateral LE. Resp Effort & Inspection: normal respiratory effort and able to speak in complete sentences Cardio Other: Extremities are well perfused. Neuro General: patient alert, patient awake and patient oriented x3 Objective Labs 02/16/24 15:40 02/16/24 15:40 Labs: Laboratory Results - last 24 hr 02/16/24 02/16/24 15:35 15:40 WBC 10.1 RBC 3.63 L Hgb 8.6 L Hct 27.3 L MCV 75.3 L MCH 23.6 L MCHC 31.4 RDW 18.8 H Plt Count 417 H Neut % (Auto) 64.4 Lymph % (Auto) 23.0 L Daggett % (Auto) 9.6 Eos % (Auto) 2.3 Baso % (Auto) 0.7 Neut # (Auto) 6500 Lymph # (Auto) 2300 Daggett # (Auto) 1000 H Eos # (Auto) 200 Baso # (Auto) 100 Sodium 136 L Potassium 3.8 Chloride 101 Carbon Dioxide 29 BUN 10 Creatinine 0.64 Estimated GFR > 60 BUN/Creatinine Ratio 15.6 Glucose 93 Calcium 8.7 Total Bilirubin 0.5 AST 36 ALT 32 Alkaline Phosphatase 107 Total Protein 6.4 Albumin 3.5 Globulin 2.9 Albumin/Globulin Ratio 1.2 TSH 1.06 Free T4 0.97 Urine RBC 0-1/hpf Urine WBC None seen Ur Squamous Epith Cells 0-1 /hpf Ur Transition Epith Cell 0-1/hpf Urine Bacteria None seen Ur Culture Indicated? Cult not indicated Vol Urine Centrifuged 10ml (spun) Salicylates < 1.0 U Opiates 300ng/mL cut Positive H Ur Oxycodone Screen Positive H Urine Methadone Screen Negative Acetaminophen < 10 Ur Barbiturates Screen Negative U Tricyclic Antidepress Negative Ur Phencyclidine Scrn Negative Ur Amphetamines Screen Negative U Methamphetamines Scrn Negative Ur MDMA Scrn (Ecstasy) Negative U Benzodiazepines Scrn Positive H Urine Cocaine Screen Negative U Marijuana (THC) Screen Negative Urine pH Normal Urine Specific Cut Off Normal Ethyl Alcohol < 10 Ur Creatinine Normal PFS Medical History History of COVID-19 Acid reflux Panic attacks Lumbar post-laminectomy syndrome Microcytic anemia Pelvic floor dysfunction in female Genitourinary syndrome of menopause BMI 38.0-38.9,adult Fibromyalgia Tinnitus Vaginal atrophy Painful menstrual periods (1969) History of recurrent ear infection (1960) Glaucoma (2009) Fatty tumor Plantar warts (2002) Arthritis (2004) Shoulder pain (2008) Lumbar spine pain (2004) Foot pain (2012) Chronic back pain (2004) Suicide attempt (2004) Pneumothorax Hearing loss (1961) Anemia (1986) Chicken pox (1960) Measles (1961) Hayfever Morbid obesity with body mass index (BMI) of 40.0 to 49.9 (08/07/16) Essential hypertension (08/07/16) Gastroesophageal reflux disease without esophagitis (04/03/16) Dorsalgia (06/16/11) Obstructive sleep apnea syndrome (06/16/11) Generalized anxiety disorder (06/16/11) Mixed hyperlipidemia (06/16/11) Attention-deficit hyperactivity disorder, predominantly inattentive type Post traumatic stress disorder (PTSD) Surgical History History of colonoscopy (04/11/18) History of ear surgery History of thumb surgery (2009) History of back surgery (2007) History of carpal tunnel repair (2010) Status post delivery (01/27/90) Status post tonsillectomy and adenoidectomy Family History Father Cancer Hypertension High cholesterol Grandfather Cancer Mental health problem Depression Leukemia Grandmother Mental health problem Alzheimer's dementia Grandfather Diabetes mellitus Hypertension High cholesterol Grandmother Heart disease Social History marital status: number of children: 2 household members: none lives independently: Yes caregiver/support person: No housing: apartment pets and animals: Yes education level: college occupational status: disabled 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 She is not having any fevers. I suspect patients pain, especially since it is more located in the sacrum and vaginal area is related to tumor lesions. We discussed sitting on pillows and adjusting positions in chair or bed to find a more comfortable position for patient. We will continue to monitor, continue w/ multimodal pain management, will need to try and find good PO pain control options so pt can be d/c with better pain control. We discussed possible Rx for a different muscle relaxant if needed upon discharge. She is currently getting Lovenox for DVT prophylaxis. She may ambulate and weight bear as tolerated, maintain BLT restrictions. Discharge dispo per medicine. Time-Based Coding :: [TOTAL MINUTES] spent with patient and on the chart (including review of chart, obtaining history, exam, reviewing outside data, placing orders, documenting exam and treatment plan, and counseling patient) on [DATE]. Quality VTE Deep Vein Thrombosis/Pulmonary Embolism Present on Admission: No
[2024-02-17] MEDS: ACETAMINOPHEN 325 MG TABLET 650 MG PO ×2 (14:59→21:51)
--- NOTE | 2024-02-17 15:41 | CM.DPNOTE ---
DCP Note GREENSMAN reviewed EMR. Per chart review, pt SI is significantly decreased when pain better managed. Per RN report, pt in much less pain today and pain is better controlled with patch. Per PT, rec home with assistance and HH. Per [facility] from [facility], able to accept pt back, only need new order. GREENSMAN placed HH order. GREENSMAN met with pt in room. Confirm plan for returning home with dtr support and [facility]. Request [facility] call dtr for scheduling. Report feeling much better pain omalley today. Hopeful to dc home tomorrow (Wednesday) dtr can transport home when ready. P: anticipate home with dtr support and [facility] to follow for RN/PT/OT/BIOMEDICAL ENGINEERING AIDE/GREENSMAN. Anticipate Wednesday vs when pain is controlled. CM team will continue to follow as needed URSULA [place]
[2024-02-17 16:00] VITALS: BP 132/68; PULSE 82; RESP 16; TEMP 36.6; O2SAT 95
[2024-02-17] MEDS: OXYCODONE IR 5 MG TABLET 10 MG PO ×2 (16:55→21:50)
--- NOTE | 2024-02-17 17:48 | P.PN_ITS ---
Exam Vital Signs (past 8 hours): - 02/17/24 12:00 02/17/24 16:00 Temperature 97.8 F 97.8 F Pulse Rate 82 82 Respiratory Rate 16 16 Blood Pressure 124/69 132/68 Pulse Oximetry 94 95 Oxygen Flow Rate 0 0 Oxygen Delivery Method Room Air Oxygen Flow Rate 0 Objective Labs 02/16/24 15:40 02/16/24 15:40 [facility] Medical History History of COVID-19 Acid reflux Panic attacks Lumbar post-laminectomy syndrome Microcytic anemia Pelvic floor dysfunction in female Genitourinary syndrome of menopause BMI 38.0-38.9,adult Fibromyalgia Tinnitus Vaginal atrophy Painful menstrual periods (1969) History of recurrent ear infection (1960) Glaucoma (2009) Fatty tumor Plantar warts (2002) Arthritis (2004) Shoulder pain (2008) Lumbar spine pain (2004) Foot pain (2012) Chronic back pain (2004) Suicide attempt (2004) Pneumothorax Hearing loss (1961) Anemia (1986) Chicken pox (1960) Measles (1961) Hayfever Morbid obesity with body mass index (BMI) of 40.0 to 49.9 (08/07/16) Essential hypertension (08/07/16) Gastroesophageal reflux disease without esophagitis (04/03/16) Dorsalgia (06/16/11) Obstructive sleep apnea syndrome (06/16/11) Generalized anxiety disorder (06/16/11) Mixed hyperlipidemia (06/16/11) Attention-deficit hyperactivity disorder, predominantly inattentive type Post traumatic stress disorder (PTSD) Surgical History History of colonoscopy (04/11/18) History of ear surgery History of thumb surgery (2009) History of back surgery (2007) History of carpal tunnel repair (2010) Status post delivery (01/27/90) Status post tonsillectomy and adenoidectomy Family History Father Cancer Hypertension High cholesterol Grandfather Cancer Mental health problem Depression Leukemia Grandmother Mental health problem Alzheimer's dementia Grandfather Diabetes mellitus Hypertension High cholesterol Grandmother Heart disease Social History marital status: number of children: 2 household members: none lives independently: Yes caregiver/support person: No housing: apartment pets and animals: Yes education level: college occupational status: disabled 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 While in hospital, she had general surgery and transportation design engineer procedure for biopsy of abdominal/uterine mass/lesion. She is readmitted due to difficulty with pain control once she was discharged to home. Repeat CT abdomen/pelvis was done. This is no significant interval change since her last CT a few days prior. Her fusion hardware are in good position without evidence of loosening or displacement. There is no post operative hematoma or fluid collection. She has multiple soft tissue and bony lesion including in her uterus, cervix, sacrum, liver, abdominal wall. I discussed patient's status again with patient's daughter by phone today. Patient has much better pain control since her admission. Patient has oncology consultation scheduled for next week. I reviewed her current plan of care again with her. There is likely to be discussing regarding treatment of her tumor/cancer with chemo, radiation, surgery or all of the above. The oncologist will discuss specific care plan once a full assessment has been done. Patient's post operative lumbar current has minimum pain. Patient reports improved radicular pain and had good mobility during the last admission post op. She will have increased pain management demand due to multiple area of active tumor/cancer. I encouraged her to continue working with PT/OT for mobility training to lower her risk of developing potential perioperative complications such as pneumonia, DVT/PE, etc. She may continue ambulating as tolerated. Patient has tail bone pain when sitting. 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 Currently with her pain patch, medications along with positional adjustment, there is very little pain in her tail bone. Patient's daughter will make sure patient will be able to attend her oncology appointment next week. She understands her current plan of care. I answered all of her questions today. Time-Based Coding :: [TOTAL MINUTES] spent with patient and on the chart (including review of chart, obtaining history, exam, reviewing outside data, placing orders, documenting exam and treatment plan, and counseling patient) on [DATE]. Quality VTE Deep Vein Thrombosis/Pulmonary Embolism Present on Admission: No
[2024-02-17 20:00] VITALS: BP 124/74; PULSE 86; RESP 18; TEMP 36.4; O2SAT 100
[2024-02-17] MEDS: TRAZODONE 50 MG TABLET 100 MG PO (21:52)
[2024-02-17] MEDS: SENNOSIDES 8.6 MG TABLET 17.2 MG PO (21:52)
[2024-02-17] MEDS: SODIUM CHLORIDE 0.9% FLUSH 10 ML IV ×2 (21:53→22:50)
[2024-02-18] VITALS: BP 108/61; PULSE 77; RESP 20; TEMP 36.4; O2SAT 100
[2024-02-18] MEDS: HYDROMORPHONE 1 MG INJ IV ×3 (00:41→14:11)
[2024-02-18] MEDS: SODIUM CHLORIDE 0.9% FLUSH 10 ML IV ×2 (00:42→08:52)
[2024-02-18] MEDS: OXYCODONE IR 5 MG TABLET 10 MG PO ×3 (02:28→10:21)
[2024-02-18] MEDS: diazePAM 5 MG TABLET PO ×3 (02:28→10:21)
[2024-02-18] MEDS: IBUPROFEN 600 MG TABLET PO ×2 (04:52→10:21)
[2024-02-18 06:00] VITALS: BP 130/80; PULSE 83; RESP 20; TEMP 36.1; O2SAT 95
[2024-02-18] MEDS: PANTOPRAZOLE DR 40 MG TABLET PO (06:11)
[2024-02-18] MEDS: ACETAMINOPHEN 325 MG TABLET 650 MG PO (06:12)
--- NOTE | 2024-02-18 07:18 | P.PN_ITS ---
Subjective Subjective Date Patient Seen: 02/18/24 Time Patient Seen: 07:18 Interval history: L3-4, L4-5 lumbar fusion and posterior segmental instrumentation by Dr Call on 02/09/2024. She was complaining of left-sided abdominal mass as well as pelvic/vaginal pain prior to surgery. On POD# 1, she was still complaining of these issues, and a CT of the abdomen was ordered. This revealed multiple scattered liver lesions and a sacral mass. Endometrial cancer suggested as primary source based on appearance of uterus on CT. General surgery was consulted, and further workup included a CT of the chest, which was positive for lung metastases. Dr Dorothy Jones performed a colonscopy on 02/11, which showed no suspicious lesions. Dr Jones biopsied her abdominal mass on 02/13, and Dr Angelina Umana biopsied her cervix and uterus. She was discharged home following these procedures. She was readmitted yesterday with pain control issues that appear to be related mostly to her cancer burden as well as her recent lumbar procedure. She has had nearly a complete resolution of lower extremity pain, but does continue to c/o some left buttock pain/spasm. She's currently on a fentanyl patch w/ PO oxycodone as needed, and she tells me Dr Luque's goal is to establish a pain management while she is in the hospital that can be easily replicated at home. A repeat CT scan was done on this admission and reviewed by Dr Call; there are no concerns regarding her lumbar fusion recovery. Exam Vital Signs (past 8 hours): - 02/18/24 00:00 02/18/24 06:00 Temperature 97.5 F L 97.0 F L Pulse Rate 77 83 Respiratory Rate 20 20 Blood Pressure 108/61 130/80 Pulse Oximetry 100 95 Oxygen Flow Rate 0 0 Oxygen Delivery Method Room Air,CPAP Oxygen Flow Rate 0 Narrative Exam Narrative: 5/5 strength in hip flexors, quadriceps, hamstrings, DF, PF, EHL bilaterally. Sensation to light touch intact throughout BLE; calves soft, compressible, nontender. Dressings changed since surgery, CDI. Objective Labs 02/16/24 15:40 02/16/24 15:40 [facility] Medical History History of COVID-19 Acid reflux Panic attacks Lumbar post-laminectomy syndrome Microcytic anemia Pelvic floor dysfunction in female Genitourinary syndrome of menopause BMI 38.0-38.9,adult Fibromyalgia Tinnitus Vaginal atrophy Painful menstrual periods (1969) History of recurrent ear infection (1960) Glaucoma (2009) Fatty tumor Plantar warts (2002) Arthritis (2004) Shoulder pain (2009) Lumbar spine pain (2004) Foot pain (2012) Chronic back pain (2004) Suicide attempt (2004) Pneumothorax Hearing loss (1961) Anemia (1986) Chicken pox (1960) Measles (1961) Hayfever Morbid obesity with body mass index (BMI) of 40.0 to 49.9 (08/07/16) Essential hypertension (08/07/16) Gastroesophageal reflux disease without esophagitis (04/03/16) Dorsalgia (06/16/11) Obstructive sleep apnea syndrome (06/16/11) Generalized anxiety disorder (06/16/11) Mixed hyperlipidemia (06/16/11) Attention-deficit hyperactivity disorder, predominantly inattentive type Post traumatic stress disorder (PTSD) Surgical History History of colonoscopy (04/11/18) History of ear surgery History of thumb surgery (2009) History of back surgery (2007) History of carpal tunnel repair (2010) Status post delivery (01/27/90) Status post tonsillectomy and adenoidectomy Family History Father Cancer Hypertension High cholesterol Grandfather Cancer Mental health problem Depression Leukemia Grandmother Mental health problem Alzheimer's dementia Grandfather Diabetes mellitus Hypertension High cholesterol Grandmother Heart disease Social History marital status: number of children: 2 household members: none lives independently: Yes caregiver/support person: No housing: apartment pets and animals: Yes education level: college occupational status: disabled 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 She would like to try steroids as she feels her lingering left upper leg pain is significant. Will start methylprednisolone 24mg today, and taper by 4mg daily while she is inpt with appropriate instructions for discharge when she leaves. 2) She has her first postop appt scheduled w/ me on 02/23; will leave sheial in place until that time. 3) She is currently on ASA 81mg daily and enoxaparin 40mg daily for VTE prophylaxis. VTE prophylaxis per Dr Luque - from a spine surgery standpoint, her risk of VTE outweighs her risk of developing symptomatic epidural hematoma. 4) Will continue to follow while she is inpt. Continue normal post-op lumbar fusion precautions. Time-Based Coding :: [TOTAL MINUTES] spent with patient and on the chart (including review of chart, obtaining history, exam, reviewing outside data, placing orders, documenting exam and treatment plan, and counseling patient) on [DATE]. Quality VTE Deep Vein Thrombosis/Pulmonary Embolism Present on Admission: No
--- NOTE | 2024-02-18 07:51 | P.DS_ITS ---
History of Present Illness History of Present Illness Date Patient Seen: 02/18/24 Time Patient Seen: 07:51 Chief complaint: Pain, post sx problem Narrative: 63-year-old female well known to me recently discharged after spine surgery and postoperatively discovered to have probable endometrial cancer with Mets in liver lungs skin and left sacrum. Patient has apparently had increasing pain particularly in her left gluteal area over the last several days since discharge to the point where she ?can not tolerate it?, despite 10 mg hydrocodone tabs, 5 mg oxycodone tabs, etcetera. Back spasming occurring in the left leg kind of what was happening prior to surgery. Also some sort of stiffness in her pelvis feels like she was sitting on rocks. If she was up and around walking she feels lots better than if she was lying in bed or sitting down but has not had the stamina or strength to be up and around 100% of the time. 10 mg hydrocodone alternating with 5 mg oxycodone as instructed upon discharge and she says that is not touching it at all. She previously was using methocarbamol to help with some of the spasming component but that is not providing any benefit either. She reached the point where she felt like she would rather end her life thing continued to experience this kind of pain. She did not speak that to anyone until she came to the hospital, but this morning feels like she is out of that as her pain is much better controlled. A couple doses of parental hydromorphone made a tremendous difference and wonders if she could get perhaps the oral version to take home Patient had severe pain out of control prior to her back surgery, pain probably well out of proportion to findings on imaging. Seem to be much better immediately postop but obviously is had increasing pain. The diagnosis of the bony metastasis as well as the underlying malignancy seem to provide some degree of explanation for her pain out of proportion but I am not convinced it fully explains this presentation. No evidence of complication related to her surgery based on imaging and examination are. Patient had evaluation for newly found uterine mass with evidence of metastases as above. Pathology still pending on all the areas sampled on February 13. Referral urgently placed to medical oncology as well as Radiation Oncology, but need path results etcetera. Patient does have a medical oncology appointment on February 22 at [facility] Patient has significant history of depression anxiety and PTSD. She is followed by URSULA Cota, in our behavioral health clinic. Discharge Providers Provider Date of admission: 02/16/24 18:10 Discharge Date: 02/18/24 Primary care physician: Andrés Luque MD Consults: 02/16/24 14:57 Consult to PLANER [employer]ONE - Metal Ceiling Builder Stat Comment: Metal Ceiling Builder Consult needed for:: Suicidal/homicidal ideat. 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 Severe back and left leg pain, likely secondary to metastatic disease and recent back surgery 2. Endometrial carcinoma with Mets to bone, liver, lungs, and skin 3. Suicidal ideation secondary to pain, resolved 4. Major depressive disorder 5. Insomnia 6. Anxiety disorder 7. Hypertension 8. GERD without esophagitis 9. Obesity with BMI 36-36.9 Hospital Course: Patient admitted as above with pain out of control with resulting wishes to end her life to control her pain Patient received parental narcotics in the ER which he was tremendously helpful in relieving her pain and with this desire to end her life really diminished significantly. Pain was controlled with a topical fentanyl patch and with this patient was able to be up and ambulating with the assistance of physical therapy with minimal if any discomfort. Given this patient's suicidal ideation seem to resolve completely and she was not felt to be at risk She was seen in consultation by her spine surgeon did not feel like there is any evidence of complication related to recent surgery Given the increased control of her pain with the topical fentanyl as well as he addition of oral corticosteroids and the ability of patient to ambulate with minimal assistance with skilled therapy was felt as though she was stable for discharge home. Pathology regarding patient's uterine mass which is presumably endometrial carcinoma with metastases as above with still pending at time of this dictation. This was obtained during patient's previous hospitalization Exam Vital Signs (past 8 hours): - 02/18/24 00:00 02/18/24 06:00 Temperature 97.5 F L 97.0 F L Pulse Rate 77 83 Respiratory Rate 20 20 Blood Pressure 108/61 130/80 Pulse Oximetry 100 95 Oxygen Flow Rate 0 0 Oxygen Delivery Method Room Air,CPAP Oxygen Flow Rate 0 Objective Labs 02/16/24 15:40 02/16/24 15:40 [facility] Medical History History of COVID-19 Acid reflux Panic attacks Lumbar post-laminectomy syndrome Microcytic anemia Pelvic floor dysfunction in female Genitourinary syndrome of menopause BMI 38.0-38.9,adult Fibromyalgia Tinnitus Vaginal atrophy Painful menstrual periods (1969) History of recurrent ear infection (1960) Glaucoma (2009) Fatty tumor Plantar warts (2002) Arthritis (2004) Shoulder pain (2008) Lumbar spine pain (2004) Foot pain (2012) Chronic back pain (2004) Suicide attempt (2004) Pneumothorax Hearing loss (1961) Anemia (1986) Chicken pox (1960) Measles (1961) Hayfever Morbid obesity with body mass index (BMI) of 40.0 to 49.9 (08/07/16) Essential hypertension (08/07/16) Gastroesophageal reflux disease without esophagitis (04/03/16) Dorsalgia (06/16/11) Obstructive sleep apnea syndrome (06/16/11) Generalized anxiety disorder (06/16/11) Mixed hyperlipidemia (06/16/11) Attention-deficit hyperactivity disorder, predominantly inattentive type Post traumatic stress disorder (PTSD) Surgical History History of colonoscopy (04/11/18) History of ear surgery History of thumb surgery (2009) History of back surgery (2007) History of carpal tunnel repair (2010) Status post delivery (01/27/90) Status post tonsillectomy and adenoidectomy Family History Father Cancer Hypertension High cholesterol Grandfather Cancer Mental health problem Depression Leukemia Grandmother Mental health problem Alzheimer's dementia Grandfather Diabetes mellitus Hypertension High cholesterol Grandmother Heart disease Social History marital status: number of children: 2 household members: none lives independently: Yes caregiver/support person: No housing: apartment pets and animals: Yes education level: college occupational status: disabled 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 She was cautioned that this combined with the opiate type pain medications can result in inadvertent overdose. Patient seems to understand this Patient will continue on a tapering course of methylprednisolone as outlined by Orthopedic surgery Patient will keep her oncology appointment next week for initial intake as well as keeping her orthopedic surgery follow up appointments. Greater than 30 minutes was spent coordinating this discharge with patient, her daughter, and reviewing recommendations from Orthopedic surgery. This included writing prescriptions and completing documentation as above. Discharge Plan Discharge Plan Patient Disposition: Home Health Service Transfer to: [facility] Discharge orders & Medications Prescriptions: New fentanyl 25 mcg/hr patch 72 hour 1 patch transdermal Q72H Qty: 5 0RF methylprednisolone 4 mg tablet 4 - 20 mg PO DAILY Qty: 15 0RF Rx Instructions: Take 5 tabs (20mg) on day 1, then decrease by one tab each day until gone (stop after 5 days, when tabs run out) Continued bupropion HCl [Wellbutrin XL] 300 mg tablet extended release 24 hr 300 mg PO Q DAY Qty: 90 3RF trazodone 50 mg tablet 100 mg PO BEDTIME Qty: 180 3RF hydrochlorothiazide 25 mg tablet 25 mg PO DAILY Qty: 90 3RF docusate sodium 100 mg capsule 100 mg PO BID Qty: 180 3RF potassium chloride 20 mEq tablet extended release 20 meq PO DAILY Qty: 90 3RF estradiol [Estrace] 0.01 % (0.1 mg/gram) cream 1 appful vaginal DAILY Qty: 42.5 3RF Rx Instructions: place 1.5cm (1g) cream to area as directed by your doctor nightly for 14 days, then decrease frequency to twice weekly thereafter omeprazole 40 mg capsule,delayed release(DR/EC) 40 mg PO BID acetaminophen 650 mg Tablet Extended Release 650 mg PO QID hydrocortisone [Preparation H Hydrocortisone] 1 % Cream 1 applic TOPICAL QID PRN (Reason: Hemorrhoids) mupirocin 2 % ointment 1 applic TOPICAL BID methylphenidate HCl [Metadate CD] 10 mg capsule, ER biphasic 30-70 10 mg PO QAM ondansetron 4 mg Tablet,Disintegrating 4 mg sublingual Q4-6H PRN (Reason: Nausea) Qty: 30 0RF aspirin 81 mg tablet,delayed release (DR/EC) 81 mg PO DAILY Qty: 90 0RF Changed alprazolam [Xanax] 0.5 mg Tablet 0.5 mg PO BID-TID Qty: 20 0RF Patient Comments: pt states, had in hospital wants to be back on it polyethylene glycol 3350 17 gram/dose powder 17 g PO DAILY Qty: 510 0RF oxycodone 5 mg Tablet 5 - 10 mg PO Q4-6H MDD 6 tabs PRN (Reason: Pain, Moderate (4-6)) Qty: 45 0RF Rx Instructions: Only take for severe breakthrough pain Discontinued hydrocodone-acetaminophen 10-325 mg tablet 1 - 2 tab PO TID MDD max 6 tabs/day PRN (Reason: pain) Qty: 60 0RF Rx Instructions: Must last 10 days ramelteon [Rozerem] 8 mg tablet 8 mg PO HS Patient Comments: Pt states not currently taking methylprednisolone [Methylpred DP] 4 mg tablets,dose pack See Rx Instructions .ROUTE .COMPLEX Qty: 21 0RF Rx Instructions: orally per package directions. Take ONLY if having severe left leg pain. No Action (DME) Disabled Parking See Rx Instructions .ROUTE .MEDSUPPLY Qty: 1 0RF Rx Instructions: Patient qualifies for disabled parking as per the attached form. (DME) [employer] AirSense 10 See Rx Instructions .Route .MEDSUPPLY Rx Instructions: CPAP Min: 8 Max: 12 DME: STEVEN: 04/08/21 Follow up/Referrals: Boyd Call MD [Physician] - 02/24/24 2:30 pm (Follow up w/ Ivonne Cardozo PA-C, at [facility] in [place].) Andrés Luque MD [Primary Care Provider] - (keep Feb 24 2024 appt at 10:30, arrive at 10:15) Diet/Activity/Treatments Diet: Diet as Tolerated Activity: No deep bending or twisting at the waist. No lifting more than 10 pounds. Cold/Heat Therapy: Heating pad to low back as needed for pain. Skin/Wound/Dressing Care Dressing: May shower. If dressing becomes wet or dirty, remove and replace with clean, dry gauze. No bathing or otherwise soaking incisions. Do not apply any creams, lotions, or ointments to incisions. Visit Report/Discharge Packet Stand Alone Forms: Patient Portal/API, Stroke Signs & Symptoms Discharge Data Primary Care Provider: Anrdés Luque VTE Deep Vein Thrombosis/Pulmonary Embolism Present on Admission: No [facility] Charge Codes Discharge inpatient/observation: 96250
[2024-02-18] MEDS: ENOXAPARIN 40 MG/0.4 ML SYRINGE SUBCUT (08:50)
[2024-02-18] MEDS: methylPREDNISolone 4 MG TABLET 24 MG PO (08:50)
[2024-02-18] MEDS: polyethylene glycoL 3350 17 GM POWD.PACK PO (08:50)
[2024-02-18] MEDS: buPROPion XL 150 MG TAB 300 MG PO (08:50)
[2024-02-18] MEDS: ASPIRIN EC 81 MG TABLET PO (08:51)
[2024-02-18] MEDS: hydroCHLOROthiazide 25 MG TABLET PO (08:51)
[2024-02-18 10:00] VITALS: BP 141/81; PULSE 79; RESP 12; TEMP 36.5; O2SAT 95
--- NOTE | 2024-02-18 10:56 | CM.DPC ---
Addendum entered by URSULA Frias 02/18/24 14:17: [facility] confirmed that pt has been re-accepted for RN/PT/OT/HH Aide/HALL CLEANER services. Patient and pt's daughter has been notified by DCP, pt to discharge home shortly. TERRY Diaz Original Note: DCP Continued: Reviewed EMR and team rounds for pt?s medical status. Per Provider note, pt cleared to discharge with assistance of daughter with new pain medications and resumption of home health services. DCP confirmed with [facility] that pt to resume services; pt daughter to coordinate scheduling. DCP sent new HH orders and F2F. Plan: Discharge orders in, anticipating discharge home with daughter to assist. Pt to follow up with PCP, [facility], Ortho and services. CM Team will continue to follow for coordination of discharge plans. TERRY Diaz
[2024-02-18 12:00] VITALS: BP 123/68; PULSE 77; RESP 12; TEMP 35.9; O2SAT 93
== END 2024-02-18 14:25 | disposition home health service (06) | DRG 948 ==
LOC: ED 17:24 → AC 18:11
PROVIDERS: Admitting Provider Family Medicine; Emergency Provider Emergency Medicine; Family Provider Internal Medicine; PCP Internal Medicine; Referring Provider Emergency Medicine; Visit Provider Internal Medicine
DX: G89.18 Other acute postprocedural pain (principal); R45.851 Suicidal ideations; C78.7 Secondary malignant neoplasm of liver and intrahepatic bile duct; C78.00 Secondary malignant neoplasm of unspecified lung; C79.51 Secondary malignant neoplasm of bone; C79.2 Secondary malignant neoplasm of skin; C54.1 Malignant neoplasm of endometrium; I10 Essential (primary) hypertension; G89.3 Neoplasm related pain (acute) (chronic); F32.9 Major depressive disorder, single episode, unspecified; G47.00 Insomnia, unspecified; F41.9 Anxiety disorder, unspecified; K21.9 Gastro-esophageal reflux disease without esophagitis; E66.9 Obesity, unspecified; Z87.891 Personal history of nicotine dependence; Z98.1 Arthrodesis status; Z68.36 Body mass index [BMI] 36.0-36.9, adult
CPT/HCPCS: 74177; 80053; 80305; 80320; 80329; 81003; 81015; 84439; 84443; 85025; 96374; 96375; 96376; 97161; 99223; 99239; 99284; G0480; J1170; J1650; J2405; J3360; Q9967